=== PATIENT | male | born 1935 | race Caucasian/White ===

== ENCOUNTER → 2018-01-26 | Outpatient (CLI) | payer MEDICARE ==
--- NOTE | 2018-01-26 11:36 | FL ---
EXAMINATION TYPE: FL barium swallow w video DATE OF EXAM: 01/26/2018 MODIFIED SWALLOW / DEGLUTITION STUDY CLINICAL HISTORY: Burning sensation at the back of the patient's throat. TECHNIQUE: Deglutition study is performed utilizing thin liquid barium, honey and nectar thick liqui d barium, barium thick applesauce, and barium coated cracker. 57 seconds of fluoroscopy was utilized. 0 images were saved as the exam was video recorded. COMPARISON: None. FINDINGS: The oral and pharyngeal phases show satisfactory initiation and propagation with all modali ties tested. Normal mastication is seen with solid modalities tested. There is no evidence of penet ration or aspiration with any modality tested. No significant pharyngeal residue was appreciated. IMPRESSION: Unremarkable deglutition study. Please refer to speech therapist notes for further detai ls if necessary.
== END | disposition home or self-care (01) ==
LOC: RADFLMAIN 10:42
PROVIDERS: ATTEND Otolaryngology
DX: R13.10 Dysphagia, unspecified (principal)
CPT/HCPCS: 74230

== ENCOUNTER → 2018-01-30 | Outpatient (CLI) | payer MEDICARE ==
--- NOTE | 2018-01-30 10:29 | FL ---
EXAMINATION TYPE: FL barium swallow DATE OF EXAM: 01/30/2018 COMPARISON: None HISTORY: Dysphasia TECHNIQUE: A double air contrast esophagram study is performed. FINDINGS: Esophagus dilates to normal caliber has normal contour to the gastroesophageal junction. Ga stroesophageal junction opens to normal caliber. A small self reducing sliding type hiatal hernia is present. No intraluminal or extramural defect is evident. Tertiary contractions were evident. In the horizontal drinking position there is incomplete stripping of esophageal bolus. Fluoroscopy time: 1 minute 8 seconds. Images: 13 IMPRESSIONS: 1. Presbyesophagus. 2. Small soft reducing sliding type hiatal hernia.
== END | disposition home or self-care (01) ==
LOC: RADFLWHC 09:15
PROVIDERS: ATTEND Otolaryngology
DX: K44.9 Diaphragmatic hernia without obstruction or gangrene (principal); K22.8 Other specified diseases of esophagus
CPT/HCPCS: 74220

== ENCOUNTER 2018-04-18 10:28 | Day surgery (SDC) | payer MEDICARE ==
[2018-04-14 10:23] VITALS: BMI 26.3
[~2018-04-18 10:28] MED LIST: LACTATED RINGERS 1,000 ML IV SCH
[2018-04-18 10:45] VITALS: RESP 18; TEMP 98
[2018-04-18] MEDS ORDERED: LIDOCAINE 1% 20 ML VIAL (10MG/ML) FOR IV START INTRADERMA ONE (10:55)
[2018-04-18] MEDS ORDERED: LACTATED RINGERS 1,000 ML IV ONE (10:55)
[2018-04-18] MEDS ORDERED: LIDOCAINE 1% INJ 10MG/ML (20 ML MDV) ONE (11:59)
[2018-04-18] MEDS ORDERED: PROPOFOL 10 MG/ML 20 ML VIAL IV ONE (11:59)
--- NOTE | 2018-04-18 12:25 | P.PCN ---
Date of Procedure: 04/18/18 Procedure(s) Performed: Procedure: Esophagogastroduodenoscopy and biopsy. Preoperative diagnosis: Throat complaints and suspected reflux disease. Postoperative diagnosis: 1. Small sliding hiatal hernia with no obvious esophagitis or complicated reflux disease. 2. Mild antral gastritis. 3. Multiple biopsies obtained from the duodenum, antrum and esophagus. Preparation: HalfLytely prep. Sedation: Was provided by anesthesia. Brief clinical history: The patient is an 82-year-old male who has been experiencing exertional throat burning for the last several months with improvement at rest. There is no history of heartburn. Did not respond to a trial with PPI. He is undergoing cardiac evaluation and this evaluation is requested to rule out with confidence gastroesophageal reflux disease. Procedure: With the patient on his left lateral decubitus position and after informed consent and adequate sedation, I passed a Olympus-GIF H190 video upper endoscope through the cricopharyngeus down the esophagus. GE junction was around 40 cm from the incisors and there was a small sliding hiatal hernia but no obvious esophagitis or complicated reflux disease. The endoscope was then passed into the stomach which was insufflated with air and inspected in detail including the retroflex view in the cardia. There was some mottling and erythema in the antrum but no ulcers or erosions. Pyloric channel, duodenal bulb, post bulbar area and descending duodenum appeared within normal limits. I obtained multiple biopsies from the duodenum, antrum and esophagus then the endoscope was withdrawn. The patient tolerated the procedure well. Plan: The patient was reassured. Will await biopsy results. In the meantime, I encouraged him to proceed with the cardiac workup as you have suggested. I would like to see him in follow-up if his symptoms persist and his cardiac workup is negative. At that time, I would consider 24-hour pH/impedance study if he continues to be symptomatic and his biopsies taken today did not support acid reflux. I will keep you updated on his progress.
[2018-04-18 12:44] VITALS: BP 152/89; PULSE 64
== END 2018-04-18 12:53 | disposition home or self-care (01) ==
LOC: ORWHC2ENDO 10:28
DX: K44.9 Diaphragmatic hernia without obstruction or gangrene (principal); K29.50 Unspecified chronic gastritis without bleeding; K21.9 Gastro-esophageal reflux disease without esophagitis; Z88.0 Allergy status to penicillin; Z79.82 Long term (current) use of aspirin
CPT/HCPCS: 88305; 43239; J2001; J2704

== ENCOUNTER 2018-05-08 10:50 | Inpatient (IN) | payer MEDICARE ==
[2018-05-08] MEDS ORDERED: ASPIRIN 325 MG TAB ONE (11:22)
[2018-05-08] MEDS ORDERED: SODIUM CHLORIDE 0.9% 1,000 ML IV ONE (11:40)
[2018-05-08] MEDS ORDERED: ASPIRIN 325 MG TAB PO STA (11:46)
[2018-05-08] MEDS ORDERED: SODIUM CHLORIDE 0.9% 1,000 ML in EMPTY BAG 1 BAG IV ONE (11:46)
[2018-05-08] MEDS ORDERED: ATORVASTATIN 80 MG TAB PO STA (11:46)
[2018-05-08] MEDS ORDERED: NITROGLYCERIN SL TABS 0.4 MG TAB SUBLINGUAL PRN ×2 (11:46→12:59)
[2018-05-08] MEDS ORDERED: ALPRAZolam 0.5 MG TAB PO PRN (11:46)
[2018-05-08] MEDS ORDERED: ALPRAZolam 0.25 MG TAB PO PRN (11:46)
[2018-05-08 11:54] LABS: Basophils % (A) 1 %; Eosinophils # (A) 0.1 k/uL (0-0.7); Eosinophils % (A) 2 %; HCT 46.7 % (39.0-53.0); Lymphocytes # (A) 1.4 k/uL (1.0-4.8); Lymphocytes % (A) 19 %; MCH 31.2 pg (25.0-35.0); MCHC 32.2 g/dL (31.0-37.0); MCV 97.1 fL (80.0-100.0); Mean Platelet Volume 6.6; Monocytes # (A) 0.6 k/uL (0-1.0); Monocytes % (A) 8 %; Neutrophils # (A) 5.2 k/uL (1.3-7.7); Neutrophils % (A) 69 %; Platelet Count 244 k/uL (150-450); RDW 13.1 % (11.5-15.5); WBC 7.5 k/uL (3.8-10.6)
[2018-05-08] MEDS ORDERED: LIDOCAINE 1% INJ 10MG/ML (20 ML MDV) ONE (11:54)
[2018-05-08] MEDS ORDERED: fentaNYL (PF) 50 MCG/ML 2 ML AMP ONE (11:54)
[2018-05-08] MEDS ORDERED: VERAPAMIL 2.5 MG/ML 2 ML AMP ONE (11:54)
[2018-05-08 12:01] LABS: Anion Gap 8 mmol/L; Blood Urea Nitrogen 19 mg/dL (9-20); Calcium 9.4 mg/dL (8.4-10.2); Carbon Dioxide 24 mmol/L (22-30); Chloride 106 mmol/L (98-107); Glucose 100 mg/dL (74-99); Potassium 4.2 mmol/L (3.5-5.1); Sodium 138 mmol/L (137-145)
[2018-05-08] MEDS ORDERED: MIDAZOLAM 2 MG/2 ML VIAL IVP ONE (12:15)
[2018-05-08] MEDS ORDERED: fentaNYL (PF) 50 MCG/ML 2 ML AMP IVP ONE (12:15)
[2018-05-08] MEDS ORDERED: LIDOCAINE 1% INJ 10MG/ML (20 ML MDV) SQ ONE (12:19)
[2018-05-08] MEDS ORDERED: VERAPAMIL SYRINGE (5 MG/10 ML) INTRAARTER ONE (12:22)
[2018-05-08] MEDS ORDERED: HEPARIN SODIUM 1,000 UN/ML (10ML VL) ONE (12:22)
[2018-05-08] MEDS ORDERED: HEPARIN SODIUM 1,000 UN/ML (10ML VL) IV ONE (12:23)
[2018-05-08] MEDS ORDERED: IOPAMIDOL-370 150ML BTL INJ ONE (12:42)
[2018-05-08] MEDS ORDERED: RX INFO: IV CONTRAST WAS GIVEN 1 EACH MISC MISCELLANE PRN (12:56)
--- NOTE | 2018-05-08 13:12 | P.CARDCATH ---
Date of Procedure: 05/08/18 Preoperative Diagnosis: Exertional angina and strongly positive stress test Postoperative Diagnosis: Severe multivessel disease with mild to moderately impaired LV function Procedure(s) Performed: Left heart catheterization with left ventriculography Description of Procedure: This is a 82-year-old gentleman with history of of throat and neck pain for which he had several evaluations. He was seen by Dr. VC Marcelino and was started on combination of metoprolol and Imdur. Patient had a stress test today and walked about 5 minutes and developed significant ST-T changes associated, throat pain. His nuclear study showed severe reversible ischemia involving the anteroapical wall with the left ventricular cavity dilatation. Because of strongly positive stress test on ongoing chest pain, patient is advised to have a cardiac catheterization. Patient and family were explained the risks and benefits of the procedure. CONSENT:I have discussed the risks, benefits and alternative therapies for the above-mentioned procedure and for both sedation/analgesia as well as necessary blood product administration, if indicated, as they pertain to this patient. The patient has indicated understanding and acceptance of the risks and procedures discussed. PROCEDURE: Patient was brought to the lab in a fasting state. Patient was given some IV sedation. The right wrist is infiltrated with lidocaine and right radial artery was entered using Seldinger technique. A 6-Bahamian catheter was left in place and selective coronary arteriography and left ventriculography was performed. Patient tolerated the procedure well. Femoral angiogram was performed and Angio-Seal was applied for hemostasis. No immediate complications were noted and patient was transferred to [facility] in a stable condition. The patient was also given 4000 of IV heparin. He was also given IV verapamil Conscious Sedation: Versed 1mg Fentanyl 50 g Duration 29minutes HEMODYNAMICS: The aortic pressure was about 130/70. Left ankle end-diastolic pressure was 16. There was no gradient across the aortic valve SELECTIVE CORONARY ARTERIOGRAPHY: LEFT MAIN: Normal length and patent THE LEFT ANTERIOR DESCENDING CORONARY ARTERY:. This is a good caliber vessel with a diffuse disease. There is heavy calcification of the whole left coronary system and also right coronary system. There is about 99% stenosis of the LAD after the first septal branch. There is a diffuse disease involving the LAD after the second diagonal branch. The distal LAD appears to be small to moderate caliber and free of any significant lesions. There is also ostial lesion involving the second diagonal with about 70-80% lesion. THE LEFT CIRCUMFLEX AND IS CORONARY ARTERY: This is a good caliber vessel giving rise to good-sized OM branch. The first OM branch has about 50-60% lesion. The circumflex gives rise to to PDA branch. There are multiple lesions in the distal circumflex including the origin of the PDA with about 90% stenosis. THE RIGHT CORONARY ARTERY: Diffusely this is a vessel with total occlusion in midportion. There are collaterals from the left coronary system filling the distal RCA which appears to be diffusely this is a vessel LEFT VENTRICULOGRAPHY:. This revealed hypokinesis of the mid and also apical anterior wall. Overall left ankle function is moderately impaired with ejection fraction of 40% FINAL IMPRESSION:, Severe triple-vessel disease with multiple lesions in the LAD, circumflex and total occlusion of the RCA as described above PLAN: Aortic, bypass surgery with graft to the LAD diagonal distal circumflex and probably OM branch. I'm not sure if the distal RCA is bypassable PROGNOSIS: Guarded
[2018-05-08] MEDS ORDERED: ISOSORBIDE MONONITRATE ER 30 MG TAB.ER.24H PO STA (13:51)
[2018-05-08] MEDS ORDERED: MD COMMUNICATION TO PHARMACY 1 EACH MISC PO ONE (14:26)
[2018-05-08] MEDS: METOPROLOL TARTRATE 25 MG TAB PO SCH ×2 (14:46→21:34)
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
[2018-05-08 15:52] LABS: Magnesium 2.1 mg/dL (1.6-2.3)
[2018-05-08 15:53] LABS: Partial Thromboplastin Time 29.7 sec (22.0-30.0); Prothrombin Time 10.7 sec (9.0-12.0)
[2018-05-08 16:09] LABS: Appearance,Urine Clear (Clear); Bilirubin,Urine Negative (Negative); Blood,Urine Negative (Negative); Color,Urine Light Yellow; Glucose,Urine (UA) Negative (Negative); Ketones,Urine Negative (Negative); Leukocyte Esterase,Urine Negative (Negative); Nitrite,Urine Negative (Negative); Protein,Urine Negative (Negative); Urobilinogen,Urine <2.0 mg/dL (<2.0)
[2018-05-08] MEDS: SODIUM CHLORIDE 0.9% 1,000 ML IV SCH (17:51)
--- NOTE | 2018-05-08 18:04 | US ---
EXAMINATION TYPE: US carotid duplex BILAT DATE OF EXAM: 05/08/2018 COMPARISON: NONE CLINICAL HISTORY: Pre-Op Cardiac Surgery. EXAM MEASUREMENTS: RIGHT: Peak Systolic Velocity (PSV) cm/sec ----- Right CCA: 68.2 ----- Right ICA: 134.9 ----- Right ECA: 43.2 ICA/CCA ratio: 2.0 RIGHT: End Diastole cm/sec ----- Right CCA: 17.3 ----- Right ICA: 21.5 ----- Right ECA: 4.4 LEFT: Peak Systolic Velocity (PSV) cm/sec ----- Left CCA: 51.7 ----- Left ICA: 152.3 ----- Left ECA: 47.8 ICA/CCA ratio: 2.9 LEFT: End Diastole cm/sec ----- Left CCA: 10.0 ----- Left ICA: 32.7 ----- Left ECA: 5.1 VERTEBRALS (direction of flow): Right Vertebral: Antegrade Left Vertebral: Antegrade Rhythm: Normal Moderate to severe atherosclerotic plaque with mild velocity increases seen bilateral. IMPRESSION: There is antegrade flow in the vertebral arteries. Bilateral plaque formation is present. The images and measurements suggest 50-70% stenosis in both internal carotid arteries. Criteria for Assigning % of Stenosis / Diameter reduction (Estimation based on the indirect measurements of the internal carotid artery velocities (ICA PSV). 1. Normal (no stenosis)=ICA PSV < 125 cm/s: ratio < 2.0: ICA EDV<40 cm/s. 2. Less than 50% stenosis=ICA PSV < 125 cm/s: ratio < 2.0: ICA EDV<40 cm/s. 3. 50 to 69% stenosis=ICA PSV of 125 to 230 cm/s: ration 2.0 ? 4.0: ICA EDV 40-100 cm/s. 4. Greater than 70% stenosis to near occlusion= ICA PSV > 230 cm/s: ratio > 4.0: ICA EDV > 100 cm/s. 5. Near occlusion= ICA PSV velocities may be low or undetectable: variable ratio and ICA EDV. 6. Total occlusion=unable to detect flow.
--- NOTE | 2018-05-08 18:16 | XR ---
EXAMINATION TYPE: XR chest 2V DATE OF EXAM: 05/08/2018 COMPARISON: NONE HISTORY: Preop cardiac surgery TECHNIQUE: Frontal and lateral views of the chest are obtained. FINDINGS: There is no heart failure nor confluent pneumonic infiltrate. Costophrenic angles are todd r. Thoracic aorta is atheromatous. IMPRESSION: No active cardiopulmonary disease. Atheromatous aorta.
[2018-05-08] MEDS: MUPIROCIN 2% OINT 22 GM TUBE NASAL SCH (19:42)
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
[2018-05-09 00:25] LABS: Hemoglobin A1C 5.3 % (4.0-6.0)
[2018-05-09 02:59] LABS: Hepatitis A Antibody IgM Non-Reactive (Non-Reactive); Hepatitis B Core IgM Non-Reactive (Non-Reactive)
[2018-05-09] MEDS: SODIUM CHLORIDE 0.9% 1,000 ML IV SCH ×2 (03:59→19:30)
[2018-05-09 07:07] LABS: Anion Gap 9 mmol/L; Blood Urea Nitrogen 16 mg/dL (9-20); Calcium 8.9 mg/dL (8.4-10.2); Carbon Dioxide 22 mmol/L (22-30); Chloride 108 mmol/L (98-107); Glucose 99 mg/dL (74-99); Sodium 139 mmol/L (137-145)
[2018-05-09 07:09] LABS: Potassium 4.5 mmol/L (3.5-5.1)
[2018-05-09] MEDS: ATORVASTATIN 40 MG TAB PO SCH (08:56)
[2018-05-09] MEDS: ISOSORBIDE MONONITRATE ER 30 MG TAB.ER.24H PO SCH (08:57)
[2018-05-09] MEDS: MUPIROCIN 2% OINT 22 GM TUBE NASAL SCH ×2 (08:57→19:26)
[2018-05-09] MEDS: METOPROLOL TARTRATE 25 MG TAB PO SCH ×2 (08:57→19:31)
[2018-05-09] MEDS: ASPIRIN 325 MG TAB PO SCH (08:57)
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
--- NOTE | 2018-05-09 12:46 | ECHOF ---
Referral Reason:assess LV, valves preop CABG MEASUREMENTS -------- HEIGHT: 175.3 cm WEIGHT: 83.0 kg BP: 182/79 IVSd: 1.2 cm (0.6 - 1.1) LVIDd: 5.1 cm (3.9 - 5.3) LVPWd: 1.2 cm (0.6 - 1.1) IVSs: 1.5 cm LVIDs: 3.1 cm LVPWs: 1.5 cm LA Diam: 4.1 cm (2.7 - 3.8) LAESV Index (A-L): 26.75 ml/m Ao Diam: 3.6 cm (2.0 - 3.7) AV Cusp: 1.7 cm (1.5 - 2.6) LA Diam: 3.2 cm (2.7 - 3.8) MV EXCURSION: 22.907 mm (> 18.000) MV EF SLOPE: 87 mm/s (70 - 150) EPSS: 0.5 cm MV E Son: 0.64 m/s MV DecT: 207 ms MV A Son: 1.23 m/s MV E/A Ratio: 0.52 RAP: 5.00 mmHg RVSP: 26.68 mmHg FINDINGS -------- Sinus rhythm. This was a technically good study. The left ventricular size is normal. There is mild concentric left ventricular hypertrophy. Overa ll left ventricular systolic function is moderate-severely impaired with, an EF between 30 - 35 %. The diastolic filling pattern is normal for the age of the patient 15.31. Mid anteroseptal LV wall motion is hypokinetic. Apical anterior LV wall motion is hypokinetic. Apical lateral LV wall mo tion is hypokinetic. Apical inferior LV wall motion is hypokinetic. Apical septum LV wall motio n is hypokinetic. Inferior Hypokinesis Distal Septal Hypokinesis. The right ventricle is normal in size. The left atrial size is normal. Normal LA size by volume 22+/-6 ml/m2. The right atrial size is normal. The aortic valve is trileaflet, and appears structurally normal. No aortic stenosis or regurgitation. Mild mitral annular calcification present. Mild mitral regurgitation is present. Mild tricuspid regurgitation present. There is mild pulmonary hypertension. The right ventricular systolic pressure, as measured by Doppler, is 26.68mmHg. Trace/mild (physiologic) pulmonic regurgitation. The aortic root size is normal. There is a small, generalized pericardial effusion present. CONCLUSIONS -------- 1. The left ventricular size is normal. 2. There is mild concentric left ventricular hypertrophy. 3. The diastolic filling pattern is normal for the age of the patient 15.31 4. Mid anteroseptal LV wall motion is hypokinetic. 5. Apical anterior LV wall motion is hypokinetic. 6. Apical lateral LV wall motion is hypokinetic. 7. Apical inferior LV wall motion is hypokinetic. 8. Apical septum LV wall motion is hypokinetic. 9. Inferior Hypokinesis 10. Distal Septal Hypokinesis. 11. The right ventricle is normal in size. 12. The left atrial size is normal. 13. The right atrial size is normal. 14. The aortic valve is trileaflet, and appears structurally normal. No aortic stenosis or regurgitat ion. 15. Mild mitral annular calcification present. 16. Mild mitral regurgitation is present. 17. Mild tricuspid regurgitation present. 18. There is mild pulmonary hypertension. 19. The right ventricular systolic pressure, as measured by Doppler, is 26.68mmHg. 20. Trace/mild (physiologic) pulmonic regurgitation. 21. The aortic root size is normal. 22. There is a small, generalized pericardial effusion present. ASSOCIATE PROFESSOR OF BIOLOGY: Amy Loredo RDCS
--- NOTE | 2018-05-09 13:16 | PN ---
PROGRESS NOTE Mr. Odonnell underwent a cardiac cath performed by Dr. Goodman yesterday. He has significant triple-vessel disease, mild to moderate LV function impairment. He is doing well. His right radial cath site is clean and dry. Vitals are stable. S1-S2 heard normally. Lungs are clear. Abdomen and lower extremity unchanged. We are adding losartan to his regimen. I am recommending that he increase activity. He will be seen by Dr. Springer today and surgery is planned for this gentleman. From a cardiac standpoint, he can proceed with the operation. He will be on some GI prophylaxis and subcu heparin as well. His carotid Doppler suggests a moderate 50%-70% stenosis in both internal carotid arteries with antegrade flow, but even vertebral arteries bilaterally. I do not think any carotid intervention is necessary at this time. He can proceed with cardiac surgery after evaluation by Dr. Springer, which hopefully will happen today. He is also being evaluated from a pulmonary standpoint by Dr. Murray. I will add losartan 25 mg p.o. daily to his regimen. Discussed my thoughts in detail with the patient and family. MMODL / IJN: [id number] /
[2018-05-09] MEDS: PANTOPRAZOLE 40 MG TABLET PO SCH (16:02)
[2018-05-09] MEDS: HEPARIN SODIUM,PORCINE 5,000 UNIT/ML 1 ML VIAL SQ SCH ×2 (16:02→23:26)
[2018-05-09] MEDS: LOSARTAN 25 MG TAB PO SCH (16:03)
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
[2018-05-09] MEDS ORDERED: MD COMMUNICATION TO PHARMACY 1 EACH MISC PO ONE ×2 (20:06)
--- NOTE | 2018-05-09 21:00 | CT ---
EXAMINATION TYPE: CT chest wo con DATE OF EXAM: 05/09/2018 COMPARISON: 05/08/2018 radiographs HISTORY: Positive stress test CT DLP: 343.2 mGycm. Automated Exposure Control for Dose Reduction was Utilized. TECHNIQUE: CT scan of the thorax is performed without IV contrast. FINDINGS: LUNGS AND AIRWAYS: The lungs are grossly clear, there is no concerning bronchogenic mass. There are a few scattered subcentimeter pulmonary nodules measuring from 2 - 9 mm; would advise 6 month follow-u p chest CT to further characterize these. The tracheobronchial tree is patent. PLEURAL SPACES: Negative. MEDIASTINUM: Mild cardiomegaly, with prominent left and right coronary calcifications. In addition, a ir to mitral valve plane calcifications noted. No pericardial effusion. Ascending aorta caliber enlar ged at 4.2 cm. No mediastinal or hilar adenopathy. OTHER: No additional significant abnormality is seen. IMPRESSION: 1. MILD CARDIOMEGALY WITH PROMINENT CORONARY CALCIFICATIONS. 2. MILD FUSIFORM DILATION OF THE ASCENDING AORTA, MEASURING 4.2 CM CALIBER. 3. PULMONARY NODULES, FOLLOW UP CT IN SIX MONTHS.
[2018-05-10] MEDS: PANTOPRAZOLE 40 MG TABLET PO SCH (06:46)
[2018-05-10] MEDS: SODIUM CHLORIDE 0.9% 1,000 ML IV SCH ×2 (06:47→19:34)
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
[2018-05-10] MEDS: METOPROLOL TARTRATE 25 MG TAB PO SCH ×2 (10:12→19:34)
[2018-05-10] MEDS: ATORVASTATIN 40 MG TAB PO SCH (10:12)
[2018-05-10] MEDS: LOSARTAN 25 MG TAB PO SCH (10:12)
[2018-05-10] MEDS: HEPARIN SODIUM,PORCINE 5,000 UNIT/ML 1 ML VIAL SQ SCH ×3 (10:12→23:18)
[2018-05-10] MEDS: ISOSORBIDE MONONITRATE ER 30 MG TAB.ER.24H PO SCH (10:13)
[2018-05-10] MEDS: MUPIROCIN 2% OINT 22 GM TUBE NASAL SCH ×2 (10:13→19:35)
[2018-05-10] MEDS: ASPIRIN 325 MG TAB PO SCH (15:21)
--- NOTE | 2018-05-10 15:21 | PN ---
PROGRESS NOTE Mr. Odonnell is a gentleman who underwent cardiac cath by Dr. Goodman. He is going to have surgery this Tuesday with a triple-vessel bypass. He is comfortable, resting, denies chest pain. His right radial cath site is clean and dry. Vitals are stable, S1-S2 heard normally. Lungs are clear. Abdomen and lower extremity exam unchanged. Plan is to continue current medications, increase activity and he will have surgery in about 48 hours or so. MMODL / IJN: [id number] /
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
[2018-05-11] MEDS: PANTOPRAZOLE 40 MG TABLET PO SCH (06:38)
[2018-05-11] MEDS: SODIUM CHLORIDE 0.9% 1,000 ML IV SCH ×2 (06:39→20:31)
[2018-05-11 06:55] LABS: HCT 41.4 % (39.0-53.0); HGB 13.1 gm/dL (13.0-17.5); MCH 30.6 pg (25.0-35.0); MCHC 31.7 g/dL (31.0-37.0); MCV 96.6 fL (80.0-100.0); Mean Platelet Volume 7.2; Platelet Count 202 k/uL (150-450); RBC 4.29 m/uL (4.30-5.90); WBC 5.4 k/uL (3.8-10.6)
[2018-05-11 06:59] LABS: Prothrombin Time 10.5 sec (9.0-12.0)
[2018-05-11 07:04] LABS: ALT 25 U/L (21-72); AST 18 U/L (17-59); Albumin 3.3 g/dL (3.5-5.0); Alkaline Phosphatase 58 U/L (38-126); Anion Gap 8 mmol/L; Blood Urea Nitrogen 13 mg/dL (9-20); Calcium 8.9 mg/dL (8.4-10.2); Carbon Dioxide 23 mmol/L (22-30); Chloride 109 mmol/L (98-107); Glucose 92 mg/dL (74-99); Potassium 4.1 mmol/L (3.5-5.1); Sodium 140 mmol/L (137-145); Total Bilirubin 0.8 mg/dL (0.2-1.3); Total Protein 5.8 g/dL (6.3-8.2)
[2018-05-11] MEDS: ISOSORBIDE MONONITRATE ER 30 MG TAB.ER.24H PO SCH (08:37)
[2018-05-11] MEDS: ATORVASTATIN 40 MG TAB PO SCH (08:37)
[2018-05-11] MEDS: LOSARTAN 25 MG TAB PO SCH (08:37)
[2018-05-11] MEDS: ASPIRIN 325 MG TAB PO SCH (08:37)
[2018-05-11] MEDS: METOPROLOL TARTRATE 25 MG TAB PO SCH ×2 (08:37→20:31)
[2018-05-11] MEDS: HEPARIN SODIUM,PORCINE 5,000 UNIT/ML 1 ML VIAL SQ SCH ×3 (08:38→23:42)
[2018-05-11] MEDS: MUPIROCIN 2% OINT 22 GM TUBE NASAL SCH ×2 (08:38→20:31)
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
--- NOTE | 2018-05-11 12:02 | PN ---
PROGRESS NOTE This is an 83-year-old gentleman who underwent a cardiac cath a few days ago, was found to have significant triple-vessel disease. He is going to go for aortocoronary bypass surgery tomorrow to be performed by Dr. Springer. This morning he is doing well, resting comfortably. Denies any chest pain or shortness of breath. Vital signs are stable. S1, S2 heard normally. Lungs are clear. Abdomen and lower extremities exam is unchanged. Plan is to continue his current medications and he will have surgery tomorrow and we will continue to follow him. MMODL / IJN: [id number] /
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
[2018-05-12] MEDS: PANTOPRAZOLE 40 MG TABLET PO SCH (05:31)
[2018-05-12] MEDS ORDERED: NITROGLYCERIN-D5W PMX 25 MG/250 ML BTL IV ONE (06:00)
[2018-05-12] MEDS ORDERED: INSULIN REGULAR 100 UNIT in SODIUM CHLORIDE 0.9% 100 ML IV ONE (06:00)
[2018-05-12] MEDS ORDERED: TRANEXAMIC ACID 2,000 MG in SODIUM CHLORIDE 0.9% 80 ML IV ONE (06:00)
[2018-05-12] MEDS ORDERED: NITROGLYCERIN-D5W PMX 50 MG in DEXTROSE/WATER 1 250ML.BAG IV ONE (06:00)
[2018-05-12] MEDS ORDERED: ALBUMIN HUMAN 25% 50 ML in EMPTY BAG 1 BAG IVPB ONE (06:00)
[2018-05-12] MEDS ORDERED: ATORVASTATIN 10 MG TAB PO ONE (06:00)
[2018-05-12] MEDS ORDERED: DEXTROSE 5% IN WATER 1,000 ML with POTASSIUM CHLORIDE 25 MEQ, SODIUM CHLORIDE 2.5MEQ/ML... IV SCH ×6 (06:00)
[2018-05-12] MEDS ORDERED: PROTAMINE SULFATE 250 MG in EMPTY BAG 1 BAG IV ONE (06:00)
[2018-05-12] MEDS ORDERED: ASPIRIN 325 MG TAB PO ONE (06:00)
[2018-05-12] MEDS ORDERED: MAGNESIUM SULFATE SYG 4.06 MEQ/ML SYRINGE IV ONE (06:00)
[2018-05-12] MEDS ORDERED: PAPAVERINE 360 MG in SODIUM CHLORIDE 0.9% 90 ML IV ONE (06:00)
[2018-05-12] MEDS ORDERED: MANNITOL 25% 12.5 GM/50 ML VIAL IV ONE ×2 (06:00)
[2018-05-12] MEDS ORDERED: ALBUMIN HUMAN 5% 500 ML in EMPTY BAG 1 BAG IVPB ONE ×6 (06:00)
[2018-05-12] MEDS ORDERED: DEXTROSE 5% IN WATER 1,000 ML with POTASSIUM CHLORIDE 110 MEQ, MAGNESIUM SULFATE 16 MEQ... IV SCH ×5 (06:00)
[2018-05-12] MEDS ORDERED: CALCIUM CHLORIDE 100 MG/ML 10 ML SYRINGE IVP ONE (06:00)
[2018-05-12] MEDS ORDERED: CHLORHEXIDINE GLUCONATE 15 ML CUP MUCOUS MEM ONE (06:00)
[2018-05-12] MEDS ORDERED: PROTAMINE SULFATE 10 MG/ML 25 ML VIAL IV ONE ×2 (06:00→07:38)
[2018-05-12] MEDS ORDERED: PHENYLEPHRINE 10 MG/ML VIAL IV ONE (06:00)
[2018-05-12] MEDS ORDERED: SODIUM BICARB 8.4% 50 ML SYR (1 MEQ/ML) IV ONE (06:00)
[2018-05-12] MEDS ORDERED: PROPOFOL 1,000 MG in EMPTY BAG 1 BAG IV ONE (06:00)
[2018-05-12] MEDS ORDERED: HEPARIN SODIUM,PORCINE 5,000 UNIT in SODIUM CHLORIDE 0.9% 500 ML 500 ML IV ONE (06:00)
[2018-05-12] MEDS ORDERED: ceFAZolin 2,000 MG in SODIUM CHLORIDE 0.9% 30 ML IVPB ONE (06:00)
[2018-05-12] MEDS ORDERED: PHENYLEPHRINE 40 MG in SODIUM CHLORIDE 0.9% 250 ML IV ONE (06:00)
[2018-05-12] MEDS ORDERED: ceFAZolin 1,000 MG in SODIUM CHLORIDE 0.9% IRRIGATIO 1,000 ML IRRIGATION ONE (06:00)
[2018-05-12] MEDS ORDERED: ceFAZolin 2 GM in SODIUM CHLORIDE 0.9% 30 ML IVPB ONE (06:00)
[2018-05-12] MEDS ORDERED: NOREPINEPHRINE 4 MG in SODIUM CHLORIDE 0.9% 250 ML IV SCH (06:00)
[2018-05-12] MEDS ORDERED: HEPARIN SODIUM 1,000 UN/ML (10ML VL) IV ONE (06:00)
[2018-05-12] MEDS ORDERED: METOPROLOL TARTRATE 12.5 MG TAB PO ONE (06:00)
[2018-05-12] MEDS ORDERED: IV FLUID CONTINUATION 1,000 ML IV ONE (06:03)
[2018-05-12] MEDS ORDERED: LACTATED RINGERS 1,000 ML IV ONE (06:26)
[2018-05-12] MEDS ORDERED: ELECTROLYTE-R (PH 7.4) 1,000 ML IV.SOLN IV ONE (07:38)
[2018-05-12] MEDS ORDERED: HEPARIN SODIUM,PORCINE 10,000 UNIT/ML 1 ML VIAL ONE (07:38)
[2018-05-12] MEDS ORDERED: fentaNYL (PF) 50 MCG/ML 2 ML AMP ONE (07:38)
[2018-05-12] MEDS ORDERED: VECURONIUM 10 MG VIAL IV ONE (07:38)
[2018-05-12] MEDS ORDERED: PHENYLEPHRINE-0.9% NACL SYG 1 MG/10 ML SYRINGE ONE (07:38)
[2018-05-12] MEDS ORDERED: SODIUM CHLORIDE 0.9% IRRIG 1,000 ML BTL IRRIGATION ONE (07:38)
[2018-05-12] MEDS ORDERED: SODIUM CHLORIDE 0.9% 250 ML BAG ONE (07:38)
[2018-05-12] MEDS ORDERED: ePHEDrine SULFATE/0.9% NACL/PF 50 MG/5 ML SYRINGE IV ONE (07:38)
[2018-05-12] MEDS ORDERED: MIDAZOLAM 2 MG/2 ML VIAL ONE (07:38)
[2018-05-12] MEDS ORDERED: PROPOFOL 10 MG/ML 20 ML VIAL IV ONE (07:38)
[2018-05-12] MEDS ORDERED: fentaNYL (PF) 50 MCG/ML 50 ML VIAL ONE (07:38)
[2018-05-12] MEDS ORDERED: TRANEXAMIC ACID 1,000 MG/10 ML VIAL ONE (07:38)
[2018-05-12] MEDS ORDERED: MAGNESIUM SULFATE 4 MEQ/ML 10ML VIAL ONE (07:38)
[2018-05-12 08:27] LABS: ABG Base Excess 0.1 mmol/L; ABG HCO3 24 mmol/L (21-25); ABG PCO2 37 mmHg (35-45); ABG PH 7.43 (7.35-7.45); ABG PO2 358 mmHg (83-108); ABG Potassium Whole Blood 3.6 mmol/L (3.4-4.5); ABG Sodium Whole Blood 140 mmol/L (135-146); ABG TCO2 25 mmol/L (19-24)
[2018-05-12 09:47] LABS: ABG Base Excess -2.8 mmol/L; ABG HCO3 25 mmol/L (21-25); ABG Oxygen Saturation 99.4 % (94-97); ABG PCO2 54 mmHg (35-45); ABG PH 7.27 (7.35-7.45); ABG PO2 161 mmHg (83-108); ABG Potassium Whole Blood 3.7 mmol/L (3.4-4.5); ABG Sodium Whole Blood 140 mmol/L (135-146); ABG TCO2 26 mmol/L (19-24)
[2018-05-12 10:51] LABS: ABG HCO3 23 mmol/L (21-25); ABG PCO2 42 mmHg (35-45); ABG PH 7.36 (7.35-7.45); ABG PO2 347 mmHg (83-108); ABG Potassium Whole Blood 4.7 mmol/L (3.4-4.5); ABG Sodium Whole Blood 134 mmol/L (135-146); ABG TCO2 25 mmol/L (19-24)
[2018-05-12 11:22] LABS: ABG Base Excess -1.7 mmol/L; ABG HCO3 24 mmol/L (21-25); ABG PCO2 42 mmHg (35-45); ABG PH 7.36 (7.35-7.45); ABG PO2 330 mmHg (83-108); ABG Potassium Whole Blood 4.4 mmol/L (3.4-4.5); ABG Sodium Whole Blood 135 mmol/L (135-146); ABG TCO2 25 mmol/L (19-24)
[2018-05-12 12:03] LABS: ABG Base Excess -1.6 mmol/L; ABG HCO3 24 mmol/L (21-25); ABG PCO2 43 mmHg (35-45); ABG PH 7.35 (7.35-7.45); ABG PO2 232 mmHg (83-108); ABG Potassium Whole Blood 4.9 mmol/L (3.4-4.5); ABG Sodium Whole Blood 135 mmol/L (135-146); ABG TCO2 25 mmol/L (19-24)
[2018-05-12 13:32] LABS: ABG Base Excess -1.4 mmol/L; ABG HCO3 24 mmol/L (21-25); ABG Oxygen Saturation 97.2 % (94-97); ABG PCO2 42 mmHg (35-45); ABG PH 7.37 (7.35-7.45); ABG PO2 84 mmHg (83-108); ABG Potassium Whole Blood 3.9 mmol/L (3.4-4.5); ABG Sodium Whole Blood 138 mmol/L (135-146); ABG TCO2 25 mmol/L (19-24)
[2018-05-12] MEDS: CLEVIDIPINE BUTYRATE 25 MG in EMPTY BAG 1 BAG IV ONE ×2 (13:37→15:05)
[2018-05-12] MEDS: SODIUM CHLORIDE 0.9% 1,000 ML IV SCH (13:38)
[2018-05-12] MEDS: HEPARIN SODIUM,PORCINE 5,000 UNIT/ML 1 ML VIAL SQ SCH ×3 (13:41→21:43)
[2018-05-12] MEDS: ASPIRIN 325 MG TAB PO SCH (13:42)
[2018-05-12] MEDS: LOSARTAN 25 MG TAB PO SCH (13:42)
[2018-05-12] MEDS: ATORVASTATIN 40 MG TAB PO SCH (13:42)
[2018-05-12] MEDS: ISOSORBIDE MONONITRATE ER 30 MG TAB.ER.24H PO SCH (13:42)
[2018-05-12] MEDS: METOPROLOL TARTRATE 25 MG TAB PO SCH (13:43)
[2018-05-12] MEDS: MUPIROCIN 2% OINT 22 GM TUBE NASAL SCH ×2 (13:43→20:24)
[2018-05-12] MEDS ORDERED: Potassium Replacement Protocol 1 EACH MISC MISCELLANE PRN (13:49)
[2018-05-12] MEDS ORDERED: CALCIUM CHLORIDE 1,000 MG in SODIUM CHLORIDE 0.9% 100 ML IV PRN (13:49)
[2018-05-12] MEDS ORDERED: AMIODARONE 300 MG in DEXTROSE 5% IN WATER 250 ML IV PRN ×2 (13:49)
[2018-05-12] MEDS ORDERED: INSULIN REGULAR 100 UNIT in SODIUM CHLORIDE 0.9% 100 ML IV SCH (13:49)
[2018-05-12] MEDS ORDERED: PROPOFOL 1,000 MG in EMPTY BAG 1 BAG IV SCH (13:49)
[2018-05-12] MEDS ORDERED: METOCLOPRAMIDE 5 MG/ML 2 ML VIAL IVP PRN (13:49)
[2018-05-12] MEDS ORDERED: ONDANSETRON 4 MG/2 ML VIAL IVP PRN (13:49)
[2018-05-12] MEDS ORDERED: DEXTROSE 5% IN WATER 100 ML with AMIODARONE 150 MG IV PRN (13:49)
[2018-05-12] MEDS ORDERED: Phosphorus Replacement Protoco 1 EACH MISC MISCELLANE PRN (13:49)
[2018-05-12] MEDS ORDERED: IPRATROPIUM-ALBUTEROL 3 ML NEB INHALATION PRN (13:49)
[2018-05-12] MEDS ORDERED: AMIODARONE 360 MG in DEXTROSE 5% IN WATER 200 ML IV PRN ×2 (13:49)
[2018-05-12] MEDS ORDERED: Magnesium Replacement Protocol 1 EACH MISC MISCELLANE PRN (13:49)
[2018-05-12] MEDS ORDERED: NITROGLYCERIN-D5W PMX 50 MG in DEXTROSE/WATER 1 250ML.BAG IV SCH (13:49)
[2018-05-12] MEDS: LACTATED RINGERS 1,000 ML IV SCH (14:31)
[2018-05-12 14:42] LABS: Basophils % (A) 0 %; Eosinophils # (A) 0.1 k/uL (0-0.7); Eosinophils % (A) 1 %; HCT 32.5 % (39.0-53.0); HGB 10.3 gm/dL (13.0-17.5); Lymphocytes # (A) 0.7 k/uL (1.0-4.8); Lymphocytes % (A) 8 %; MCH 30.8 pg (25.0-35.0); MCHC 31.7 g/dL (31.0-37.0); MCV 97.1 fL (80.0-100.0); Mean Platelet Volume 8.1; Monocytes # (A) 0.5 k/uL (0-1.0); Monocytes % (A) 6 %; Neutrophils # (A) 7.1 k/uL (1.3-7.7); Neutrophils % (A) 85 %; Platelet Count 119 k/uL (150-450); RBC 3.35 m/uL (4.30-5.90); RDW 13.3 % (11.5-15.5); WBC 8.4 k/uL (3.8-10.6)
[2018-05-12 14:48] LABS: Glucose,Whole Blood 76 mg/dL (75-99); Ionized Calcium 5.6 mg/dL (4.5-5.3)
[2018-05-12 14:52] LABS: INR 1.2 (<1.2); Partial Thromboplastin Time 28.3 sec (22.0-30.0); Prothrombin Time 12.1 sec (9.0-12.0)
[2018-05-12 14:54] LABS: ALT 148 U/L (21-72); AST 260 U/L (17-59); Albumin 2.9 g/dL (3.5-5.0); Alkaline Phosphatase 44 U/L (38-126); Anion Gap 5 mmol/L; Blood Urea Nitrogen 11 mg/dL (9-20); Carbon Dioxide 24 mmol/L (22-30); Chloride 109 mmol/L (98-107); Glucose 74 mg/dL (74-99); Magnesium 2.7 mg/dL (1.6-2.3); Potassium 4.1 mmol/L (3.5-5.1); Sodium 138 mmol/L (137-145); Total Bilirubin 1.2 mg/dL (0.2-1.3); Total Protein 4.8 g/dL (6.3-8.2)
[2018-05-12 14:56] LABS: ABG Base Excess -1.1 mmol/L; ABG HCO3 24 mmol/L (21-25); ABG PCO2 42 mmHg (35-45); ABG PH 7.37 (7.35-7.45); ABG PO2 378 mmHg (83-108); ABG TCO2 26 mmol/L (19-24)
[2018-05-12] MEDS: CLEVIDIPINE BUTYRATE 25 MG in EMPTY BAG 1 BAG IV SCH ×2 (15:00→22:23)
[2018-05-12] MEDS ORDERED: hydrALAZINE HCL 20 MG/ML 1 ML VIAL IVP PRN (15:10)
[2018-05-12 15:12] LABS: Glucose,Whole Blood 78 mg/dL (75-99)
[2018-05-12] MEDS ORDERED: fentaNYL (PF) 50 MCG/ML 2 ML AMP IVP ONE (15:15)
--- NOTE | 2018-05-12 15:26 | XR ---
EXAMINATION TYPE: XR chest 1V portable DATE OF EXAM: 05/12/2018 CLINICAL HISTORY: Post open cardiac surgery. TECHNIQUE: Single AP portable frontal supine view of the chest is obtained. COMPARISON: Chest x-ray from 4 days ago. FINDINGS: There is new endotracheal tube with tip at superior aortic knob level, approximately 5 cm above jeanette. There is new orogastric tube projecting below diaphragm. There is new right internal ju gular Megargel-Sara catheter with tip at level of pulmonary outflow tract. There is new left-sided chest tube and mediastinal drainage catheter. There is patchy bibasilar linear atelectasis with additional left midlung lateral linear atelectasis. No pneumothorax is evident bilaterally. Suspect small left pleural fluid collection. Cardiac silhoue tte size is stable and within normal limits without reflect thoracic aorta. Osseous structures are in tact. IMPRESSION: 1. New tubes and lines satisfactory in position. 2. Patchy bibasilar and left midlung lateral linear atelectasis with small left pleural effusion.
[2018-05-12] MEDS: ceFAZolin IN SWFI 2 GM/20 ML SYRINGE IVP SCH ×2 (15:30→23:49)
[2018-05-12] MEDS: ACETAMINOPHEN IV (For NPO) 1,000 MG in EMPTY BAG 1 BAG IVPB SCH ×2 (15:54→23:48)
[2018-05-12] MEDS ORDERED: IPRATROPIUM-ALBUTEROL 3 ML NEB INHALATION SCH (16:00)
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
[2018-05-12 16:18] LABS: Glucose,Whole Blood 113 mg/dL (75-99)
[2018-05-12] MEDS: KETOROLAC 30 MG/ML 1 ML VIAL IVP SCH ×2 (16:34→23:49)
[2018-05-12 17:20] LABS: Basophils % (A) 0 %; Eosinophils % (A) 0 %; HCT 35.8 % (39.0-53.0); HGB 11.8 gm/dL (13.0-17.5); Lymphocytes # (A) 0.6 k/uL (1.0-4.8); Lymphocytes % (A) 5 %; MCH 31.8 pg (25.0-35.0); MCHC 32.8 g/dL (31.0-37.0); MCV 96.8 fL (80.0-100.0); Mean Platelet Volume 7.5; Monocytes # (A) 0.9 k/uL (0-1.0); Monocytes % (A) 7 %; Neutrophils # (A) 10.5 k/uL (1.3-7.7); Neutrophils % (A) 87 %; Platelet Count 154 k/uL (150-450); RDW 13.5 % (11.5-15.5); WBC 12.2 k/uL (3.8-10.6)
[2018-05-12 17:30] LABS: Glucose,Whole Blood 132 mg/dL (75-99)
[2018-05-12 17:41] LABS: ABG Base Excess -2.7 mmol/L; ABG HCO3 22 mmol/L (21-25); ABG Oxygen Saturation 97.9 % (94-97); ABG PCO2 37 mmHg (35-45); ABG PH 7.39 (7.35-7.45); ABG PO2 91 mmHg (83-108); ABG TCO2 23 mmol/L (19-24)
[2018-05-12 18:12] LABS: Glucose,Whole Blood 136 mg/dL (75-99)
--- NOTE | 2018-05-12 18:56 | OP ---
OPERATIVE REPORT DATE OF SURGERY: 05/12/2018 PREOPERATIVE DIAGNOSIS: Coronary artery disease. POSTOPERATIVE DIAGNOSIS: Coronary artery disease. PROCEDURES: 1. Coronary artery bypass grafting x4 vessels (left internal mammary artery to left anterior descending artery, saphenous vein graft to diagonal artery, saphenous vein graft to obtuse marginal artery 1, saphenous vein graft to obtuse marginal artery 2). 2. Endoscopic vein harvest, right greater saphenous vein. 3. Epiaortic ultrasound. 4. Transesophageal echocardiogram. SURGEON: Neto Springer M.D. ASSISTANTS: 1. ROLANDO Rayo. 2. ROLANDO Sandhu. ANESTHESIA: General. SPECIMENS: None. COMPLICATIONS: None. INDICATION: The patient is an 83-year-old male who presented to the hospital with throat/neck pain. He denied chest pain or shortness of breath. Workup revealed multivessel coronary artery disease, including a 99% stenosis in the left anterior descending artery. Coronary artery bypass was recommended. The risks, benefits and alternatives to this procedure were discussed with the patient. All his questions were answered. Consent was obtained. FINDINGS: The left internal mammary artery was a good conduit with brisk flow. The saphenous vein was a good conduit. The LAD measured 1.3 mm. The diagonal artery measured 1.3 mm. The OM1 measured 1.3 mm. The OM2 measured 1.3 mm. The distal right coronary artery and PDA were too diseased and too small for bypass. Of note, there was a significant amount of calcium in all of the coronary arteries. PROCEDURE IN DETAIL: The patient was taken to the operating room and placed supine on the operating table. After the induction of general anesthesia, he was prepped and draped in the usual sterile fashion. Preoperative transesophageal echocardiogram revealed an ejection fraction of about 40% with no significant valvular pathology. A median sternotomy was performed. The left internal mammary artery was harvested in the standard fashion, taking care to clip all branches. Intravenous heparin was administered. The vessel was transected distally, revealing brisk flow. Simultaneously, greater saphenous vein was harvested from the right lower extremity using endoscopic technique. All branches were tied. Both the mammary artery and saphenous vein were good conduits. A pericardial cradle was created. The ascending aorta was palpated. There was no significant calcium noted. Epiaortic ultrasound was then performed on the ascending aorta. Again, no significant calcific plaque or atheromatous disease was identified. An arterial cannula was placed in the distal ascending aorta. A venous cannula was placed through the right atrial appendage and directed into the IVC. Both antegrade and retrograde catheters were placed as well. The patient was then placed on cardiopulmonary bypass with good decompression of the heart. The aortic cross- clamp was applied. Cardioplegia was delivered in both antegrade and retrograde fashion to achieve arrest of the heart. Of note, cardioplegia was delivered every 15 to 20 minutes while the patient remained under cross-clamp. I began by inspecting the inferior wall. The distal right coronary artery was heavily calcified. The PDA was miniscule in size. I did not feel this was a suitable target for bypass. Next, the lateral wall was inspected. Both the OM1 and OM2 were good targets. I began with the OM2. A small arteriotomy was created. This vessel accepted a 1 mm probe. Using saphenous vein in a reverse fashion, an end-to-side anastomosis was created. This was performed using running 7-0 Prolene suture. The graft was hemostatic and had great flow. The OM1 was then identified. A small arteriotomy was created. This vessel accepted a 1.0 mm probe. Using saphenous vein in a reverse fashion, an end-to-side anastomosis was created. This was performed using a running 7- 0 Prolene suture. The graft was hemostatic and had great flow. Of note, the circumflex and proximal obtuse marginal arteries had significant calcific disease. The diagonal artery was then identified. It contained diffuse calcific disease. A small arteriotomy was created. This vessel accepted a 1 mm probe. Using saphenous vein in a reverse fashion, an end-to-side anastomosis was created. This was performed using running 7-0 Prolene suture. The graft was hemostatic and had good flow. Finally the left anterior descending artery was identified. It contained diffuse calcific plaque throughout its course. A soft spot for bypass was noted in its mid portion. A small arteriotomy was created. This vessel accepted a 1 mm probe. Using the left internal mammary artery, an end-to-side anastomosis was created. This was performed using a running 8-0 Prolene suture. The anastomosis was hemostatic. The mammary pedicle was then tacked down to the anterior surface of the heart. Attention was then turned to the proximal anastomoses. These were performed in end-to- side fashion using running 6-0 Prolene sutures. Of note, the vein graft to the OM2 was brought around the right side of the heart and was anastomosed to the right side of the aorta. One liter of warm blood was delivered in retrograde fashion. Both lidocaine and magnesium were administered as well. The aortic cross-clamp was removed. The vein grafts were de-aired in the standard fashion. Distal anastomoses were inspected and appeared to be hemostatic. The retrograde catheter was removed. Temporary atrial and ventricular pacing wires were placed and brought through the skin. The patient was then carefully weaned off cardiopulmonary bypass. He without difficulty and without the addition of any pressor agents. Follow-up transesophageal echocardiogram confirmed no change in the left ventricular ejection fraction. There was no valvular pathology. Protamine was administered. There were no adverse reactions. The remaining cannulas were then removed. The mediastinum was copiously irrigated with warm saline solution. All surgical sites were inspected and appeared to be hemostatic. Reinforcement sutures were placed as needed. Soft tissue was then reapproximated over the ascending aorta as well as over the apex of the heart. Straight 32-German chest tubes were placed and directed into both the left pleural space and the mediastinum. These were all secured to the skin using sutures. The sternum was then reapproximated using stainless steel wires in a [id number] fashion. At the completion of the closure, the sternum was well aligned. The remainder of the wound was closed in layers. A sterile dressing was applied. The patient appeared to tolerate the procedure well. There were no immediate complications. He returned to the ICU in critical but stable condition. DAILY / MASOUDN: [id number] / Sander#: [id number] BRIAN
[2018-05-12 19:05] LABS: Glucose,Whole Blood 128 mg/dL (75-99)
[2018-05-12] MEDS: IPRATROPIUM-ALBUTEROL 3 ML NEB INHALATION SCH ×2 (19:46→19:48)
[2018-05-12 20:03] LABS: Glucose,Whole Blood 125 mg/dL (75-99)
[2018-05-12] MEDS: METOPROLOL TARTRATE 12.5 MG TAB PO SCH (20:04)
[2018-05-12 20:14] LABS: Basophils % (A) 0 %; Eosinophils % (A) 0 %; HCT 36.4 % (39.0-53.0); HGB 11.8 gm/dL (13.0-17.5); Lymphocytes # (A) 0.5 k/uL (1.0-4.8); Lymphocytes % (A) 4 %; MCH 31.3 pg (25.0-35.0); MCHC 32.3 g/dL (31.0-37.0); MCV 96.6 fL (80.0-100.0); Mean Platelet Volume 7.4; Monocytes # (A) 0.8 k/uL (0-1.0); Monocytes % (A) 6 %; Neutrophils # (A) 11.7 k/uL (1.3-7.7); Neutrophils % (A) 89 %; Platelet Count 165 k/uL (150-450); RBC 3.76 m/uL (4.30-5.90); RDW 13.4 % (11.5-15.5); WBC 13.2 k/uL (3.8-10.6)
[2018-05-12 21:13] LABS: Glucose,Whole Blood 128 mg/dL (75-99)
[2018-05-12 22:11] LABS: Glucose,Whole Blood 125 mg/dL (75-99)
[2018-05-12 23:24] LABS: Glucose,Whole Blood 127 mg/dL (75-99)
[2018-05-13 00:14] LABS: Glucose,Whole Blood 119 mg/dL (75-99)
[2018-05-13 01:10] LABS: Glucose,Whole Blood 129 mg/dL (75-99)
[2018-05-13 02:18] LABS: Glucose,Whole Blood 125 mg/dL (75-99)
[2018-05-13 03:20] LABS: Glucose,Whole Blood 123 mg/dL (75-99)
[2018-05-13 04:16] LABS: Glucose,Whole Blood 120 mg/dL (75-99)
[2018-05-13 04:19] LABS: Basophils % (A) 0 %; Eosinophils % (A) 0 %; HCT 32.9 % (39.0-53.0); HGB 10.6 gm/dL (13.0-17.5); Lymphocytes % (A) 10 %; MCH 30.7 pg (25.0-35.0); MCHC 32.3 g/dL (31.0-37.0); MCV 95.2 fL (80.0-100.0); Mean Platelet Volume 7.6; Monocytes # (A) 0.7 k/uL (0-1.0); Monocytes % (A) 7 %; Neutrophils # (A) 8.1 k/uL (1.3-7.7); Neutrophils % (A) 81 %; Platelet Count 155 k/uL (150-450); RBC 3.46 m/uL (4.30-5.90); RDW 13.4 % (11.5-15.5)
[2018-05-13 04:25] LABS: Ionized Calcium 4.8 mg/dL (4.5-5.3)
[2018-05-13 04:32] LABS: ALT 124 U/L (21-72); AST 117 U/L (17-59); Alkaline Phosphatase 57 U/L (38-126); Anion Gap 6 mmol/L; Blood Urea Nitrogen 10 mg/dL (9-20); Calcium 8.4 mg/dL (8.4-10.2); Carbon Dioxide 23 mmol/L (22-30); Chloride 105 mmol/L (98-107); Glucose 108 mg/dL (74-99); Magnesium 1.9 mg/dL (1.6-2.3); Potassium 4.2 mmol/L (3.5-5.1); Sodium 134 mmol/L (137-145); Total Bilirubin 1.1 mg/dL (0.2-1.3); Total Protein 4.9 g/dL (6.3-8.2)
[2018-05-13 05:16] LABS: Glucose,Whole Blood 119 mg/dL (75-99)
[2018-05-13] MEDS: KETOROLAC 30 MG/ML 1 ML VIAL IVP SCH ×4 (05:44→23:07)
[2018-05-13] MEDS: ALBUMIN HUMAN 5% 250 ML in EMPTY BAG 1 BAG IVPB PRN ×5 (05:45→14:15)
[2018-05-13] MEDS ORDERED: HYDROcodone/APAP 5-325MG 1 EACH TAB PO PRN (06:00)
[2018-05-13 06:09] LABS: Glucose,Whole Blood 122 mg/dL (75-99)
[2018-05-13] MEDS ORDERED: Magnesium Replacement Protocol 1 EACH MISC MISCELLANE PRN (06:16)
[2018-05-13] MEDS: MAGNESIUM SULFATE-D5W PMX 1 GM in DEXTROSE/WATER 1 100ML.BAG IVPB SCH ×2 (06:26→08:13)
--- NOTE | 2018-05-13 06:37 | XR ---
EXAMINATION TYPE: XR chest 1V portable DATE OF EXAM: 05/13/2018 HISTORY: Post Operative Cardiac Surgery. REFERENCE: Previous study dated 05/12/2018. FINDINGS: The patient has been extubated. The patient is NG tube is been removed. A left pleural drai n remains in place. A Ottertail-Sara catheter is in place via a right internal jugular approach. Its tip i s in the pulmonary outflow tract. There has been a midline sternotomy. There is mild atelectasis of the left lung base. There is also some platelike atelectasis in the righ t midlung. There is a small left effusion and a smaller right effusion. The heart is not enlarged. IMPRESSION: CONTINUING POSTOPERATIVE CHANGE.
[2018-05-13 07:08] LABS: Glucose,Whole Blood 130 mg/dL (75-99)
[2018-05-13] MEDS: IPRATROPIUM-ALBUTEROL 3 ML NEB INHALATION SCH ×4 (07:16→19:11)
[2018-05-13] MEDS: METOPROLOL TARTRATE 12.5 MG TAB PO SCH ×2 (08:24→20:42)
[2018-05-13] MEDS: PANTOPRAZOLE 40 MG TABLET PO SCH (08:24)
[2018-05-13] MEDS: CLOPIDOGREL 75 MG TAB PO SCH (08:24)
[2018-05-13] MEDS: ATORVASTATIN 40 MG TAB PO SCH (08:24)
[2018-05-13] MEDS: ASPIRIN 325 MG TAB PO SCH (08:24)
[2018-05-13] MEDS: HEPARIN SODIUM,PORCINE 5,000 UNIT/ML 1 ML VIAL SQ SCH ×3 (08:25→23:07)
[2018-05-13 08:31] LABS: Glucose,Whole Blood 142 mg/dL (75-99)
[2018-05-13] MEDS: MUPIROCIN 2% OINT 22 GM TUBE NASAL SCH ×2 (08:41→20:42)
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
[2018-05-13] MEDS ORDERED: METOPROLOL TARTRATE 12.5 MG TAB PO SCH (09:00)
[2018-05-13] MEDS ORDERED: PANTOPRAZOLE 40 MG/10 ML VIAL IVP SCH (09:00)
[2018-05-13] MEDS: ceFAZolin IN SWFI 2 GM/20 ML SYRINGE IVP SCH (09:24)
[2018-05-13] MEDS: HYDROcodone/APAP 5-325MG 1 EACH TAB PO PRN ×2 (09:27→16:31)
[2018-05-13 09:37] VITALS: BMI 26.7
[2018-05-13 09:43] LABS: Glucose,Whole Blood 142 mg/dL (75-99)
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
[2018-05-13 11:26] LABS: Glucose,Whole Blood 124 mg/dL (75-99)
[2018-05-13 12:11] LABS: Glucose,Whole Blood 130 mg/dL (75-99)
[2018-05-13] MEDS: INSULIN ASPART (NovoLOG) 100 UNIT/ML VIAL SQ SCH ×3 (13:28→20:41)
[2018-05-13] MEDS ORDERED: BISACODYL 10 MG SUPP RECTAL PRN (13:39)
[2018-05-13] MEDS ORDERED: MAGNESIUM HYDROXIDE 2,400 MG/10 ML CUP PO PRN (13:39)
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
[2018-05-13] MEDS: LACTATED RINGERS 1,000 ML IV SCH (15:35)
--- NOTE | 2018-05-13 16:36 | PN ---
PROGRESS NOTE This is an 83-year-old gentleman who underwent aortocoronary bypass surgery yesterday with BOLANOS to LAD, saphenous vein graft to the diagonal and obtuse marginal 1 and obtuse marginal 2. He is doing well, resting comfortably, extubated, doing fairly well on incentive spirometry. Maintaining sinus rhythm. Hemodynamically stable, not on any pressors. Vitals are stable. S1, S2 heard normally. Lungs reveal fair air entry. Abdomen and lower extremity exam is unchanged. Plan is to continue incentive spirometry, pulmonary toilet and continue current medications. Based on clinical course, we will make further recommendations. MMODL / IJN: [id number] /
[2018-05-13 17:13] LABS: Glucose,Whole Blood 141 mg/dL (75-99)
[2018-05-13] MEDS: SENNOSIDES-DOCUSATE SODIUM 1 EACH TAB PO SCH (20:41)
[2018-05-13 20:47] LABS: Glucose,Whole Blood 179 mg/dL (75-99)
[2018-05-14 04:47] LABS: Ionized Calcium 4.9 mg/dL (4.5-5.3)
[2018-05-14 04:59] LABS: ALT 58 U/L (21-72); AST 41 U/L (17-59); Alkaline Phosphatase 51 U/L (38-126); Anion Gap 7 mmol/L; Blood Urea Nitrogen 13 mg/dL (9-20); Calcium 8.5 mg/dL (8.4-10.2); Carbon Dioxide 23 mmol/L (22-30); Chloride 108 mmol/L (98-107); Glucose 113 mg/dL (74-99); Magnesium 2.1 mg/dL (1.6-2.3); Sodium 138 mmol/L (137-145); Total Bilirubin 1.2 mg/dL (0.2-1.3); Total Protein 4.9 g/dL (6.3-8.2)
[2018-05-14 05:03] LABS: Basophils % (A) 0 %; Eosinophils # (A) 0.1 k/uL (0-0.7); Eosinophils % (A) 2 %; HCT 25.6 % (39.0-53.0); Lymphocytes # (A) 0.9 k/uL (1.0-4.8); Lymphocytes % (A) 15 %; MCH 32.1 pg (25.0-35.0); MCHC 32.9 g/dL (31.0-37.0); MCV 97.7 fL (80.0-100.0); Mean Platelet Volume 7.3; Monocytes # (A) 0.4 k/uL (0-1.0); Monocytes % (A) 7 %; Neutrophils % (A) 73 %; Platelet Count 108 k/uL (150-450); RBC 2.62 m/uL (4.30-5.90); RDW 13.7 % (11.5-15.5); WBC 5.5 k/uL (3.8-10.6)
[2018-05-14 05:13] LABS: HGB 8.4 gm/dL (13.0-17.5)
[2018-05-14] MEDS: KETOROLAC 30 MG/ML 1 ML VIAL IVP SCH ×3 (06:12→20:25)
[2018-05-14] MEDS: INSULIN ASPART (NovoLOG) 100 UNIT/ML VIAL SQ SCH ×4 (06:58→21:39)
[2018-05-14 07:07] LABS: Glucose,Whole Blood 130 mg/dL (75-99)
--- NOTE | 2018-05-14 07:27 | XR ---
EXAMINATION TYPE: XR chest 1V portable DATE OF EXAM: 05/14/2018 Comparison: 05/13/2018 Clinical History: 83-year-old male postop cardiac surgery Post Operative Cardiac Surgery Findings: Right IJ sheath remains in place. [place]-Sara catheter has been removed. Median sternotomy wires and po stsurgical clips in the mediastinum. Left-sided chest tube remains in place. There is a possible trac e left apical pneumothorax estimated at 5%. Some Josselyn B lines are present on the left. Trace effusi ons with patchy left greater than right bibasilar opacities are demonstrated. Impression: 1. Left-sided chest tube in place. There may be a trace left apical pneumothorax now present. 2. Possible mild pulmonary vascular congestion. 3. Trace pleural effusions with left greater than right bibasilar atelectasis and/or consolidation si milar to slightly increased.
[2018-05-14] MEDS: HEPARIN SODIUM,PORCINE 5,000 UNIT/ML 1 ML VIAL SQ SCH ×2 (08:36→16:59)
[2018-05-14] MEDS: CLOPIDOGREL 75 MG TAB PO SCH (08:36)
[2018-05-14] MEDS: ATORVASTATIN 40 MG TAB PO SCH (08:36)
[2018-05-14] MEDS: ASPIRIN 325 MG TAB PO SCH (08:36)
[2018-05-14] MEDS: PANTOPRAZOLE 40 MG TABLET PO SCH (08:36)
[2018-05-14] MEDS: METOPROLOL TARTRATE 25 MG TAB PO SCH ×2 (08:37→20:26)
[2018-05-14] MEDS: LACTATED RINGERS 1,000 ML IV SCH (08:38)
[2018-05-14] MEDS: MUPIROCIN 2% OINT 22 GM TUBE NASAL SCH ×2 (08:38→20:26)
--- NOTE | 2018-05-14 08:43 | PN ---
PROGRESS NOTE This is a gentleman with history of hypertension, hyperlipidemia, CAD, who underwent aortocoronary bypass surgery. He is doing remarkably well. Good recovery. This morning he complains of feeling some lump in the throat as if he could not swallow his oatmeal, but has no other symptoms. He is doing well on incentive spirometry. Remains in sinus rhythm. Vital signs are stable. S1-S2 heard normally. Lungs reveal fair air entry. Abdomen and lower exam unchanged. I will add losartan 25 mg at bedtime to the regimen. Continue the beta blockers and statins already ordered. He can be moved out of the ICU whenever it is okay with the surgeon. MMODL / IJN: [id number] /
[2018-05-14] MEDS: IPRATROPIUM-ALBUTEROL 3 ML NEB INHALATION SCH ×4 (08:46→19:20)
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
[2018-05-14] MEDS: HYDROcodone/APAP 5-325MG 1 EACH TAB PO PRN ×2 (10:37→16:58)
[2018-05-14 12:03] LABS: Glucose,Whole Blood 127 mg/dL (75-99)
[2018-05-14 17:03] LABS: Glucose,Whole Blood 122 mg/dL (75-99)
[2018-05-14] MEDS: LOSARTAN 25 MG TAB PO SCH (20:26)
[2018-05-14] MEDS: SENNOSIDES-DOCUSATE SODIUM 1 EACH TAB PO SCH (20:26)
[2018-05-14 20:52] LABS: Glucose,Whole Blood 138 mg/dL (75-99)
[2018-05-15] MEDS: KETOROLAC 30 MG/ML 1 ML VIAL IVP SCH ×5 (00:25→23:10)
[2018-05-15] MEDS: HEPARIN SODIUM,PORCINE 5,000 UNIT/ML 1 ML VIAL SQ SCH ×4 (00:26→23:10)
[2018-05-15 05:14] LABS: HCT 28.1 % (39.0-53.0); HGB 8.9 gm/dL (13.0-17.5); MCH 31.3 pg (25.0-35.0); MCHC 31.7 g/dL (31.0-37.0); MCV 98.6 fL (80.0-100.0); Mean Platelet Volume 7.8; Platelet Count 132 k/uL (150-450); RBC 2.85 m/uL (4.30-5.90); RDW 13.6 % (11.5-15.5); WBC 6.2 k/uL (3.8-10.6)
[2018-05-15 05:21] LABS: ALT 45 U/L (21-72); AST 29 U/L (17-59); Alkaline Phosphatase 62 U/L (38-126); Anion Gap 6 mmol/L; Blood Urea Nitrogen 14 mg/dL (9-20); Calcium 8.5 mg/dL (8.4-10.2); Carbon Dioxide 24 mmol/L (22-30); Chloride 106 mmol/L (98-107); Glucose 98 mg/dL (74-99); Potassium 3.9 mmol/L (3.5-5.1); Sodium 136 mmol/L (137-145)
[2018-05-15] MEDS: IPRATROPIUM-ALBUTEROL 3 ML NEB INHALATION SCH ×4 (05:34→19:29)
[2018-05-15 07:07] LABS: Glucose,Whole Blood 114 mg/dL (75-99)
[2018-05-15] MEDS: INSULIN ASPART (NovoLOG) 100 UNIT/ML VIAL SQ SCH ×4 (07:10→21:32)
[2018-05-15] MEDS ORDERED: POTASSIUM CHLORIDE ER 20 MEQ TAB.ER PO SCH (08:00)
[2018-05-15] MEDS ORDERED: FUROSEMIDE 10 MG/ML 2 ML VIAL IV ONE (08:12)
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
--- NOTE | 2018-05-15 08:34 | XR ---
EXAMINATION TYPE: XR chest 2V DATE OF EXAM: 05/15/2018 COMPARISON: 05/14/2018 TECHNIQUE: PA and lateral views submitted. HISTORY: Postop CABG FINDINGS: There is a persistent approximately 10% left apical pneumothorax. Chest tube noted with bilateral con solidation and small effusion. Postsurgical changes are seen. Atherosclerotic change aorta. Underlyin g COPD suspected. Vascular sheath has been removed. IMPRESSION: 1. Postsurgical changes with bilateral infiltrate and small effusion stable. 2. Stable approximate 10% left-sided apical pneumothorax.
[2018-05-15] MEDS: CLOPIDOGREL 75 MG TAB PO SCH (09:27)
[2018-05-15] MEDS: PANTOPRAZOLE 40 MG TABLET PO SCH (09:27)
[2018-05-15] MEDS: ATORVASTATIN 40 MG TAB PO SCH (09:28)
[2018-05-15] MEDS: METOPROLOL TARTRATE 25 MG TAB PO SCH ×3 (09:28→21:33)
[2018-05-15] MEDS: ASPIRIN 325 MG TAB PO SCH (09:28)
[2018-05-15] MEDS: MUPIROCIN 2% OINT 22 GM TUBE NASAL SCH ×2 (09:31→21:34)
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
[2018-05-15 11:48] LABS: Glucose,Whole Blood 112 mg/dL (75-99)
--- NOTE | 2018-05-15 13:11 | P.PN ---
Subjective Progress Note Date: 05/15/18 Principal diagnosis: Status post CABG, postoperative day #3. Patient was reevaluated today on 05/15/2018, his postoperative day #3, underwent four-vessel bypass myocardial revascularization surgery. He was extubated uneventfully, he is hemodynamically stable, his [place]Sara has been removed, continues to have a left sided chest tube, tiny left apical pneumothorax is noted, small air leak is noted. Overall the patient is doing great, and asymptomatic, doing well with incentive spirometry. Denies any specific complaints. Chest x-ray was reviewed, labs were reviewed, hemoglobin is 8.9. Renal profile is normal left lites are normal. Objective - Vital Signs Vital signs: Vital Signs Temp 99.1 F 05/15/18 08:00 Pulse 80 05/15/18 12:09 Resp 20 05/15/18 08:00 BP 112/66 05/15/18 08:00 Pulse Ox 94 L 05/15/18 08:00 Intake & Output 05/14/18 05/15/18 05/15/18 18:59 06:59 18:59 Intake Total 236 283 200 Output Total 840 1050 1300 Balance -604 -767 -1100 Weight 80.2 kg Intake: IV 236 83 Lactated Ringers 1,000 ml 200 80 @ 20 mls/hr IV .Q24H [facility] Rx#:[id number] Pressure Bag 36 3 Oral 200 200 Output: Chest Tube Drainage 240 250 300 Left 130 250 300 Mediastinal 110 Urine 290 466 4473 Other: Voiding Method Toilet Toilet Toilet Urinal Urinal Urinal # Voids 1 ABP, PAP, CO, CI - Last Documented Arterial Blood Pressure 144/43 Pulmonary Artery Pressure 28/12 Cardiac Output 6.4 Cardiac Index 3.3 - Exam Physical Exam: Revealed an 83-year-old white male in no distress. Very pleasant. Head: Atraumatic, normocephalic. HEENT:[Neck is supple.] [No neck masses.] [No thyromegaly.] [No JVD.] Chest: [Diminished breath sounds at the bases no crackles or rhonchi or wheezes, left-sided chest tube is noted. Intact Cardiac Exam: [Normal S1 and S2, no S3 gallop, no murmur.] Abdomen: [Soft, nontender, no megaly, no rebound, no guarding, normal bowel sounds.] Extremities: [No clubbing, no edema, no cyanosis.] Neurological Exam: [No focal neurologic deficit.] Alert oriented 3. Psychiatric: Normal mood, affect and mental status examination. Skin: No rashes. Musculoskeletal: Normal gait, strength equal bilaterally. No focal deficit. - Labs CBC & Chem 7: 05/15/18 04:54 05/15/18 04:54 Labs: Abnormal Lab Results - Last 24 Hours (Table) 05/14/18 05/14/18 05/15/18 Range/Units 16:51 20:40 04:54 RBC 2.85 L (4.30-5.90) m/uL Hgb 8.9 L (13.0-17.5) gm/dL Hct 28.1 L (39.0-53.0) % Plt Count 132 L (150-450) k/uL Sodium (137-145) mmol/L POC Glucose (mg/dL) 122 H 138 H (75-99) mg/dL Total Protein (6.3-8.2) g/dL Albumin (3.5-5.0) g/dL 05/15/18 05/15/18 05/15/18 Range/Units 04:54 06:55 11:37 RBC (4.30-5.90) m/uL Hgb (13.0-17.5) gm/dL Hct (39.0-53.0) % Plt Count (150-450) k/uL Sodium 136 L (137-145) mmol/L POC Glucose (mg/dL) 114 H 112 H (75-99) mg/dL Total Protein 5.0 L (6.3-8.2) g/dL Albumin 3.0 L (3.5-5.0) g/dL Assessment and Plan Assessment: Impression: 1 severe triple-vessel coronary artery disease, status post CABG, postoperative day #3. 2 left tiny apical pneumothorax, improving, continues to have a chest tube in place. 3 lifelong nonsmoker 4 bilateral carotid artery disease 5 chronic congestive heart failure and systolic dysfunction and ejection fraction of 30-35% 6 history of gastric ulcer. 7 strong family history of premature coronary artery disease. Recommendation: Continue incentive spirometry, continue bronchodilators, ambulate the patient, continue to monitor his left sided chest tube and apical pneumothorax, continue cardiac meds including aspirin and statin Plavix Cozaar and beta blockers. Continue physical therapy and outpatient cardiac rehab to follow. Continue pain control medications continue to monitor daily labs including electrolytes and renal profile continue GI prophylaxis and DVT prophylaxis continue to follow until discharge. Time with Patient: Less than 30
[2018-05-15 17:25] LABS: Glucose,Whole Blood 157 mg/dL (75-99)
[2018-05-15 20:17] LABS: Glucose,Whole Blood 168 mg/dL (75-99)
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
--- NOTE | 2018-05-15 21:11 | PN ---
PROGRESS NOTE Mr. Odonnell is status post bypass surgery. He is doing remarkably well, maintaining sinus rhythm, hemodynamically stable, doing well on incentive spirometry. Vitals are stable. S1, S2 heard normally. Lungs reveal improved air entry. Abdomen and lower extremity exam unchanged. Plan is to continue incentive spirometry, pulmonary toilet, and hopefully the chest tubes will come out and he may be moved to telemetry today. MMODL / IJN: [id number] /
[2018-05-15] MEDS: LOSARTAN 25 MG TAB PO SCH (21:33)
[2018-05-15] MEDS: SENNOSIDES-DOCUSATE SODIUM 1 EACH TAB PO SCH (21:33)
[2018-05-16 05:20] LABS: HGB 9.3 gm/dL (13.0-17.5); MCH 32.6 pg (25.0-35.0); MCHC 33.2 g/dL (31.0-37.0); MCV 98.4 fL (80.0-100.0); Mean Platelet Volume 8.4; Platelet Count 191 k/uL (150-450); RBC 2.84 m/uL (4.30-5.90); RDW 13.7 % (11.5-15.5); WBC 5.9 k/uL (3.8-10.6)
[2018-05-16 05:34] LABS: Anion Gap 8 mmol/L; Blood Urea Nitrogen 15 mg/dL (9-20); Calcium 8.4 mg/dL (8.4-10.2); Carbon Dioxide 24 mmol/L (22-30); Chloride 105 mmol/L (98-107); Glucose 96 mg/dL (74-99); Potassium 3.6 mmol/L (3.5-5.1); Sodium 137 mmol/L (137-145)
[2018-05-16] MEDS: PANTOPRAZOLE 40 MG TABLET PO SCH (05:50)
[2018-05-16] MEDS: KETOROLAC 30 MG/ML 1 ML VIAL IVP SCH ×4 (05:50→22:59)
[2018-05-16] MEDS ORDERED: POTASSIUM CHLORIDE ER 20 MEQ TAB.ER PO SCH ×2 (06:00→07:00)
[2018-05-16] MEDS: MAGNESIUM SULFATE-D5W PMX 1 GM in DEXTROSE/WATER 1 100ML.BAG IVPB SCH ×2 (06:49→08:35)
[2018-05-16] MEDS: INSULIN ASPART (NovoLOG) 100 UNIT/ML VIAL SQ SCH ×5 (06:49→21:41)
[2018-05-16] MEDS ORDERED: FUROSEMIDE 10 MG/ML 2 ML VIAL IV ONE (06:57)
[2018-05-16 07:08] LABS: Glucose,Whole Blood 135 mg/dL (75-99)
[2018-05-16] MEDS: IPRATROPIUM-ALBUTEROL 3 ML NEB INHALATION SCH ×4 (07:22→21:07)
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
[2018-05-16] MEDS ORDERED: ACETAMINOPHEN TAB 500 MG TAB PO PRN (08:17)
--- NOTE | 2018-05-16 08:34 | XR ---
EXAMINATION TYPE: XR chest 1V portable DATE OF EXAM: 05/16/2018 COMPARISON: 05/15/2018 HISTORY: Postop CABG TECHNIQUE: Single frontal view of the chest is obtained. FINDINGS: Left-sided chest tube. There is a small less than 5% left apical pneumothorax. Bilateral c onsolidation and pleural effusion seen. Postoperative change. Atherosclerotic change aorta. IMPRESSION: Postsurgical changes with bilateral infiltrate and small effusion. There is a less than 5% left apical pneumothorax.
[2018-05-16] MEDS: CLOPIDOGREL 75 MG TAB PO SCH (08:36)
[2018-05-16] MEDS: HEPARIN SODIUM,PORCINE 5,000 UNIT/ML 1 ML VIAL SQ SCH ×3 (08:36→22:59)
[2018-05-16] MEDS: ASPIRIN 325 MG TAB PO SCH (08:36)
[2018-05-16] MEDS: ATORVASTATIN 40 MG TAB PO SCH (08:37)
[2018-05-16] MEDS: METOPROLOL TARTRATE 50 MG TAB PO SCH ×2 (08:37→21:05)
[2018-05-16 12:04] LABS: Glucose,Whole Blood 107 mg/dL (75-99)
--- NOTE | 2018-05-16 12:34 | P.PN ---
Subjective Progress Note Date: 05/16/18 Principal diagnosis: Status post CABG, postoperative day #4 Patient was reevaluated today on 05/15/2018, his postoperative day #3, underwent four-vessel bypass myocardial revascularization surgery. He was extubated uneventfully, he is hemodynamically stable, his [place] has been removed, continues to have a left sided chest tube, tiny left apical pneumothorax is noted, small air leak is noted. Overall the patient is doing great, and asymptomatic, doing well with incentive spirometry. Denies any specific complaints. Chest x-ray was reviewed, labs were reviewed, hemoglobin is 8.9. Renal profile is normal left lites are normal. Patient was reevaluated today on 05/16/2018, he is postoperative day #4. Patient is doing well, relatively asymptomatic, doing extremely well with the incentive spirometer. He had his left-sided chest tube removed, tiny left apical pneumo thorax is noted, patient has no symptoms of shortness of breath cough or wheezing. He is in sinus rhythm, and he is able to move around easily. He is presently overflow from selective. Patient is hemodynamically stable, not requiring any inotropes or pressors. Chest tube was removed today from the left side uneventfully. Objective - Vital Signs Vital signs: Vital Signs Temp 98.5 F 05/16/18 08:00 Pulse 85 05/16/18 12:15 Resp 24 05/16/18 08:00 BP 98/61 05/16/18 08:30 Pulse Ox 95 05/16/18 08:00 Intake & Output 05/15/18 05/16/18 05/16/18 18:59 06:59 18:59 Intake Total 440 400 200 Output Total 1999 116 940 Balance -1560 284 -740 Weight 78.3 kg Intake: IV 0 0 Lactated Ringers 1,000 ml 0 0 @ 20 mls/hr IV .Q24H [facility] Rx#:[id number] Pressure Bag 0 0 Intake, IV Titration 200 Amount Magnesium Sulfate-D5w Pmx 200 1 gm In Dextrose/Water 1 100ml.bag @ 100 mls/hr IVPB Q1H [facility] Rx#: [id number] Oral 440 400 Output: Chest Tube Drainage 400 115 Left 400 115 Urine 1600 1 940 Other: Voiding Method Toilet Toilet Toilet Urinal Urinal Urinal # Voids 1 1 # Bowel Movements 2 1 1 ABP, PAP, CO, CI - Last Documented Arterial Blood Pressure 144/43 Pulmonary Artery Pressure 28/12 Cardiac Output 6.4 Cardiac Index 3.3 - Exam Physical Exam: Revealed an 83-year-old white male in no distress. Head: Atraumatic, normocephalic. HEENT:[Neck is supple.] [No neck masses.] [No thyromegaly.] [No JVD.] Chest: [Diminished breath sounds no rhonchi no wheezes symmetrical chest expansion, no chest wall tenderness Cardiac Exam: [Normal S1 and S2, no S3 gallop, no murmur.] Abdomen: [Soft, nontender, no megaly, no rebound, no guarding, normal bowel sounds.] Extremities: [No clubbing, no edema, no cyanosis.] Neurological Exam: [No focal neurologic deficit.] Alert oriented 3. Psychiatric: Normal mood, affect and mental status examination. Skin: No rashes. Musculoskeletal: Normal gait, strength equal bilaterally. No focal deficit. - Labs CBC & Chem 7: 05/16/18 04:43 05/16/18 04:43 Labs: Abnormal Lab Results - Last 24 Hours (Table) 05/15/18 05/15/18 05/16/18 Range/Units 16:51 20:05 04:43 RBC 2.84 L (4.30-5.90) m/uL Hgb 9.3 L (13.0-17.5) gm/dL Hct 28.0 L (39.0-53.0) % POC Glucose (mg/dL) 157 H 168 H (75-99) mg/dL 05/16/18 05/16/18 Range/Units 06:56 11:53 RBC (4.30-5.90) m/uL Hgb (13.0-17.5) gm/dL Hct (39.0-53.0) % POC Glucose (mg/dL) 135 H 107 H (75-99) mg/dL Assessment and Plan Assessment: Impression: 1 severe triple-vessel coronary artery disease, status post CABG, postoperative day #4 2 left tiny apical pneumothorax, chest tube from the left side was removed uneventfully today. 3 lifelong nonsmoker 4 bilateral carotid artery disease 5 chronic congestive heart failure and systolic dysfunction and ejection fraction of 30-35% 6 history of gastric ulcer. 7 strong family history of premature coronary artery disease. Recommendation: Continue incentive spirometry, continue bronchodilators, ambulate the patient, continue to monitor his left apical pneumothorax, continue cardiac meds including aspirin and statin Plavix Cozaar and beta blockers. Continue physical therapy and outpatient cardiac rehab to follow. Continue pain control medications continue to monitor daily labs . continue GI prophylaxis and DVT prophylaxis continue to follow until discharge. Time with Patient: Less than 30
--- NOTE | 2018-05-16 14:41 | P.PN ---
Subjective Patient has postop day 4 status post CABG. He is doing well. He complains of no chest pain except for when he is coughing. No shortness of breath, tolerating food. Objective - Vital Signs Vital signs: Vital Signs Temp 98.5 F 05/16/18 08:00 Pulse 85 05/16/18 12:15 Resp 24 05/16/18 08:00 BP 98/61 05/16/18 08:30 Pulse Ox 95 05/16/18 08:00 Intake & Output 05/15/18 05/16/18 05/16/18 18:59 06:59 18:59 Intake Total 440 400 200 Output Total 1999 116 940 Balance -1560 284 -740 Weight 78.3 kg Intake: IV 0 0 Lactated Ringers 1,000 ml 0 0 @ 20 mls/hr IV .Q24H [facility] Rx#:[id number] Pressure Bag 0 0 Intake, IV Titration 200 Amount Magnesium Sulfate-D5w Pmx 200 1 gm In Dextrose/Water 1 100ml.bag @ 100 mls/hr IVPB Q1H [facility] Rx#: [id number] Oral 440 400 Output: Chest Tube Drainage 400 115 Left 400 115 Urine 1600 1 940 Other: Voiding Method Toilet Toilet Toilet Urinal Urinal Urinal # Voids 1 1 # Bowel Movements 2 1 1 ABP, PAP, CO, CI - Last Documented Arterial Blood Pressure 144/43 Pulmonary Artery Pressure 28/12 Cardiac Output 6.4 Cardiac Index 3.3 - Exam On exam, alert and oriented x3. HEENT: Conjunctivae normal. eyes normal. NECK: No JVD. No thyroid enlargement. No LNs CARDIOVASCULAR: S1, S2 heard. Sternal border feeling good. Chest tubes removed RESPIRATION: Breath sounds diminished in the bases. No rhonchi or crackles. No bronchial breathing. ABDOMEN: Soft, nontender . No guarding. no masses palpable. No ascites, No hepatosplenomegaly.Bowel sounds heard. LEGS: No edema. no swelling NERVOUS SYSTEM: Cranial N 2-12 grossly normal. Moves all 4 limbs. No focal deficits. No sensory deficit. No signs of cerebellar dysfucntion. Skin: no ulcer no rash - Labs CBC & Chem 7: 05/16/18 04:43 05/16/18 04:43 Labs: Abnormal Lab Results - Last 24 Hours (Table) 03/05/15/18 05/16/18 Range/Units 16:51 20:05 04:43 RBC 2.84 L (4.30-5.90) m/uL Hgb 9.3 L (13.0-17.5) gm/dL Hct 28.0 L (39.0-53.0) % POC Glucose (mg/dL) 157 H 168 H (75-99) mg/dL 05/16/18 05/16/18 Range/Units 06:56 11:53 RBC (4.30-5.90) m/uL Hgb (13.0-17.5) gm/dL Hct (39.0-53.0) % POC Glucose (mg/dL) 135 H 107 H (75-99) mg/dL Assessment and Plan Assessment: - Severe triple-vessel disease status post CABG postop day 4 - History of CHF with EF of 30-35% - Apical left pneumothorax status post insertion of chest tube which was removed this morning - Family history of premature CAD - Nonsmoker Plan - Continue supportive care - Continue physical therapy - Continue rest of the medications - Patient will eventually be discharged to rehab if continues to remain stable and if cleared by ICU and cardiology - We will follow up on the patient Time with Patient: Greater than 30
--- NOTE | 2018-05-16 16:38 | PN ---
PROGRESS NOTE Mr. Odonnell is in sinus rhythm, feeling well. He is probably going to be discharged tomorrow and will be moved to telemetry today. Vital signs are stable. There is no JVD. S1, S2 heard normally. Lungs reveal improved air entry. Abdomen and lower extremity exam unchanged. Plan is to continue current medications, incentive spirometry. Beta kathia has been increased. We will move him to telemetry and hopefully home in the next 24-36 hours. MMODL / IJN: [id number] /
[2018-05-16 16:58] LABS: Glucose,Whole Blood 144 mg/dL (75-99)
[2018-05-16 21:03] LABS: Glucose,Whole Blood 178 mg/dL (75-99)
[2018-05-16] MEDS: LOSARTAN 25 MG TAB PO SCH (21:05)
[2018-05-16] MEDS: SENNOSIDES-DOCUSATE SODIUM 1 EACH TAB PO SCH (21:06)
[2018-05-17 02:14] VITALS: RESP 18
[2018-05-17] MEDS: IPRATROPIUM-ALBUTEROL 3 ML NEB INHALATION SCH ×2 (05:38→13:13)
[2018-05-17 05:54] LABS: Glucose,Whole Blood 109 mg/dL (75-99)
[2018-05-17] MEDS: INSULIN ASPART (NovoLOG) 100 UNIT/ML VIAL SQ SCH ×2 (06:27→12:42)
[2018-05-17 06:44] VITALS: PULSE 92
[2018-05-17] MEDS: KETOROLAC 30 MG/ML 1 ML VIAL IVP SCH (06:45)
[2018-05-17] MEDS: PANTOPRAZOLE 40 MG TABLET PO SCH (06:46)
[2018-05-17] MEDS ORDERED: KETOROLAC 30 MG/ML 1 ML VIAL IVP PRN (06:51)
[2018-05-17 06:56] LABS: Basophils % (A) 1 %; Eosinophils # (A) 0.4 k/uL (0-0.7); Eosinophils % (A) 5 %; HCT 31.1 % (39.0-53.0); HGB 9.9 gm/dL (13.0-17.5); Lymphocytes # (A) 1.7 k/uL (1.0-4.8); Lymphocytes % (A) 26 %; MCH 31.3 pg (25.0-35.0); MCHC 31.8 g/dL (31.0-37.0); MCV 98.7 fL (80.0-100.0); Monocytes # (A) 0.5 k/uL (0-1.0); Monocytes % (A) 8 %; Neutrophils # (A) 3.7 k/uL (1.3-7.7); Neutrophils % (A) 57 %; Platelet Count 280 k/uL (150-450); RBC 3.15 m/uL (4.30-5.90); RDW 13.6 % (11.5-15.5); WBC 6.4 k/uL (3.8-10.6)
[2018-05-17 07:17] LABS: Calcium 8.6 mg/dL (8.4-10.2); Potassium 3.5 mmol/L (3.5-5.1)
[2018-05-17] MEDS ORDERED: POTASSIUM CHLORIDE ER 20 MEQ TAB.ER PO STA (07:40)
--- NOTE | 2018-05-17 08:24 | XR ---
EXAMINATION TYPE: XR chest 2V DATE OF EXAM: 05/17/2018 COMPARISON: 05/16/2018 TECHNIQUE: PA and lateral views submitted. HISTORY: Postoperative CABG FINDINGS: There is a less than 5% left apical pneumothorax post chest tube removal. Postsurgical changes are se en with bilateral consolidation and small effusion. No overt failure. Heart size stable. Atherosclero tic change aorta. Hypertrophic and degenerative change of the spine. Subcutaneous emphysema noted and there may be a small amount of pneumomediastinum. IMPRESSION: 1. A small left-sided pneumothorax measuring 5% or less. 2. Postsurgical change with bilateral consolidation and small effusion. 3. A small amount of pneumomediastinum likely postsurgical.
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
--- NOTE | 2018-05-17 09:26 | P.VSCSTY ---
Greater Saphenous Vein Mapping This is bilateral lower extremity greater saphenous vein mapping. Date of service 05/08/2018 Vein quality and ultrasound appearance no visible intraluminal thrombus or wall changes. Vein size groin right 5.8 x 5.3 groin left 8.5 x 5.8 High thigh right 4.9 x 4.6 high thigh left 6.3 x 5.6 Mid thigh right 4.1 x 4.2 mid thigh left 4.8 x 4.1 Above-knee right 4.8 x 3.8 above- knee left 3.3 x 3.6 Below knee right 3.4 x 3.4 below-knee left 3.2 x 3.5 Mid calf right 4.8 x 2.9 mid calf left 5.3 x 3.4 Ankle right 4.1 x 3.4 ankle left 5.1 x 3.6 Impression usable bilateral greater saphenous vein.
--- NOTE | 2018-05-17 09:28 | P.ARTDOP ---
Arterial Doppler LOWER EXTREMITY ARTERIAL DOPPLER: DATE OF SERVICE: 05/08/2018 Reason for study: Preop CABG. Doppler waveforms: Blunted but multiphasic bilaterally throughout. Pulse volume recording: []. Pressure gradients: None found. Ankle-brachial indices: Not occluded on the right and greater than 1 on the left. Toe pressures: [] on the right, [] on the left Impression: Suspect adequate flow bilaterally. Suspect some degree of nonhemodynamically significant calcific wall disease. Clinical correlation recommended..
[2018-05-17] MEDS: ASPIRIN 325 MG TAB PO SCH (10:13)
[2018-05-17] MEDS: ATORVASTATIN 40 MG TAB PO SCH (10:13)
[2018-05-17] MEDS: CLOPIDOGREL 75 MG TAB PO SCH (10:13)
[2018-05-17] MEDS: METOPROLOL TARTRATE 50 MG TAB PO SCH (10:13)
[2018-05-17] MEDS: HEPARIN SODIUM,PORCINE 5,000 UNIT/ML 1 ML VIAL SQ SCH (10:14)
--- NOTE | 2018-05-17 11:17 | P.DS ---
Providers Date of admission: 05/10/18 13:35 Attending physician: Neto Springer Consults: 05/08/18 13:56 Consult Physician Routine Consulting Provider: Oswald Mendez Consult Reason/Comments: CABG Do you want consulting provider notified?: Already Contacted 05/08/18 14:27 Consult Physician Routine Consulting Provider: Fortunato Murray Consult Reason/Comments: preop cabg Do you want consulting provider notified?: Yes 05/10/18 08:00 Consult to Anesthesia Routine Consulting Provider: Anesthesia,Services Consult Reason/Comments: Cardiac Surgery Pre-Op 05/10/18 13:30 Consult Physician Routine Consulting Provider: Merary Dennison Consult Reason/Comments: medical mngt-CABG Do you want consulting provider notified?: Yes 05/12/18 13:49 Consult Physician Routine Consulting Provider: Shweta Goodman Consult Reason/Comments: [place]liquer Consult: post cardiac surgery Do you want consulting provider notified?: Yes Primary care physician: [facility] Course: Discharge diagnosis - Severe triple-vessel disease status post CABG postop day 4 - History of CHF with EF of 30-35% - Apical left pneumothorax status post insertion of chest tube which was removed this morning - Family history of premature CAD - Nonsmoker This very pleasant 83-year-old gentleman who had CABG. He was in the ICU had an uneventful course. He was transferred to [facility] with telemetry unit. He remained comfortable. On 05/17/2018 On exam, alert and oriented x3. HEENT: Conjunctivae normal. eyes normal. NECK: No JVD. No thyroid enlargement. No LNs CARDIOVASCULAR: S1, S2 muffled. No murmur RESPIRATION: Breath sounds diminished in the bases. No rhonchi or crackles. No bronchial breathing. ABDOMEN: Soft, nontender . No guarding. no masses palpable. No ascites, No hepatosplenomegaly.Bowel sounds heard. LEGS: No edema. no swelling NERVOUS SYSTEM: Cranial N 2-12 grossly normal. Moves all 4 limbs. No focal deficits. No sensory deficit. No signs of cerebellar dysfucntion. Skin: no ulcer no rash Patient will be discharged to home with home care His prescriptions have been sent to his preferred pharmacy He is to follow with her appointments as dictated in the discharge summary Patient Condition at Discharge: Fair Plan - Discharge Summary Discharge Rx Participant: Yes New Discharge Prescriptions: New Aspirin 325 mg PO DAILY #30 tab Losartan [Cozaar] 25 mg PO HS #30 tab Furosemide [Lasix] 20 mg PO DAILY #7 tab Atorvastatin [Lipitor] 40 mg PO DAILY #30 tab Metoprolol Tartrate [Lopressor] 50 mg PO BID #60 tab Clopidogrel [Plavix] 75 mg PO DAILY #30 tab Pantoprazole [Protonix] 40 mg PO AC-BRKFST #30 tablet.dr Hernandez-Docusate Sodium [Senokot-S] 2 each PO HS PRN tab PRN Reason: Constipation Acetaminophen Tab [Tylenol] 1,000 mg PO Q6HR PRN #120 tab PRN Reason: Fever And/ Or Pain Bisacodyl [Dulcolax] 10 mg RECTAL DAILY PRN #10 supp PRN Reason: Constipation Discontinued Aspirin EC [Ecotrin Low Dose] 81 mg PO DAILY Metoprolol Succinate (ER) [Toprol Xl] 25 mg PO DAILY Isosorbide Mononitrate ER [Imdur] 30 mg PO DAILY Discharge Medication List Acetaminophen Tab [Tylenol] 1,000 mg PO Q6HR PRN #120 tab 05/17/18 [Rx] Aspirin 325 mg PO DAILY #30 tab 05/17/18 [Rx] Atorvastatin [Lipitor] 40 mg PO DAILY #30 tab 05/17/18 [Rx] Bisacodyl [Dulcolax] 10 mg RECTAL DAILY PRN #10 supp 05/17/18 [Rx] Clopidogrel [Plavix] 75 mg PO DAILY #30 tab 05/17/18 [Rx] Furosemide [Lasix] 20 mg PO DAILY #7 tab 05/17/18 [Rx] Losartan [Cozaar] 25 mg PO HS #30 tab 05/17/18 [Rx] Metoprolol Tartrate [Lopressor] 50 mg PO BID #60 tab 05/17/18 [Rx] Pantoprazole [Protonix] 40 mg PO AC-BRKFST #30 tablet. 05/17/18 [Rx] Sennosides-Docusate Sodium [Senokot-S] 2 each PO HS PRN tab 05/17/18 [Rx] Follow up Appointment(s)/Referral(s): Emma Suero NPC [Nurse Practitioner] - 05/24/18 1:00 pm Eula Shanks NPC [Nurse Practitioner] - 06/13/18 2:30 pm [facility], [NON-STAFF] - 1-2 Days Neto Springer MD [STAFF PHYSICIAN] - 06/16/18 10:00 am Isac Nuñez DO [Primary Care Provider] - 05/26/18 2:20 pm Ted Marcelino MD [STAFF PHYSICIAN] - 06/02/18 4:15 pm Ambulatory/Diagnostic Orders: Complete Blood Count w/diff [LAB.AMB] Time Frame: 3 Days, Location: None Selected Comprehensive Metabolic Panel [LAB.AMB] Time Frame: 3 Days, Location: None Selected Patient Instructions/Handouts: Sternal Precautions (GEN), Coronary Artery Bypass Graft (DC) Activity/Diet/Wound Care/Special Instructions: DISCHARGE INSTRUCTIONS: 1. No driving for 4 weeks, or until physician gives their ok. 2. The patient should sleep in their own bed, no medical bed needed. 3. Stairs are not an issue. If the bedroom is upstairs, it is advised that the patient go up at night and down in the morning for the first week. Go slowly, using handrail and take 1 step at a time. 4. UJSTIN hose are to be worn for 30 days or until physician discontinues. 5. Heart hugger is to be worn 100% of the time until physician discontinues.(except when showering) 6. No lifting, pushing, or pulling more than 10 pounds for 12 weeks. The physician will advise of any restriction changes. 7. The patient is expected to continue the prescribed walking program. 8. Continue pain control per as needed orders. 9. Continue with incentive spirometry and splinting/heart hugger until other ballesteros directed by the physician. 10. Must shower daily using liquid antibacterial soap and a separate white washcloth for each individual incision. 11. Routine sternal incision care. No powders, lotions, ointments on incisions. 12. Please call surgeon/[employer] for temp greater than 101 F or purulent drainage from incisions. 13. All prescriptions given by surgeon for 30 days. Refills need to be filled through geophysical prospector/primary care physician. 14. A Red armband has been placed on the patient. It should be worn for 30 days post surgery and will be removed by the cardiac surgeons. If an ER visit is necessary, please make sure the number on the Red armband is called. HOME HEALTH SERVICES TO PROVIDE: RN SKILLED HOME CARE SERVICES FOR POST-OP SURGICAL PATIENTS WITH THE FOLLOWING: Coronary Artery Bypass Surgery (CABG), Mitral Valve Replacement/Repair ( MVR), Aortic Valve Replacement/Repair (AVR) RN TO CONTINUE EDUCATION FROM ``ROAD TO A HEALTH HEART PATIENT EDUCATION MANUAL (GIVEN TO PATIENT IN THE HOSPITAL) MEDICATION RECONCILIATION WITH EDUCATION NEEDED ON FIRST HOME VISIT EMPHASIZE IMPORTANCE OF WEARING BREAST SUPPORT/HEART HUGGER ENCOURAGE USE OF INCENTIVE SPIROMETER 10 X EVERY HOUR WHILE AWAKE ENCOURAGE UTILIZATION OF LOWER EXTREMITY COMPRESSION STOCKINGS/JUSTIN HOSE and ELEVATE LEGS ABOVE LEVEL OF HEART WHILE AT REST. ENCOURAGE AMBULATION 3-5x/day INCREASING TOLERATES, WHILE AVOID EXTREMES IN TEMPERATURE FREQUENCY: RN TO OPEN THE PATIENT WITHIN 24 HOURS OF DISCHARGE FROM THE HOSPITAL WITH [place] [facility] [place] TO VISIT 2-3 X A WEEK FOR 4 WEEKS ESTABLISHED BY PATIENT NEEDS. LABORATORY: CBC, CMP TO BE DRAWN ON THE THIRD DAY HOME, (RAN STAT) FAX RESULTS TO [phone]. TELEHEALTH PARAMETERS: WEIGHT: NOTIFY MD OF WEIGHT GAIN OF 2 LBS IN 24 HOURS OR 5 LBS IN ONE WEEK HR: NOTIFY MD OF HR <55 BPM OR HR>100 BPM BP: NOTIFY MD IF BP <90/55 OR BP>140/100 O2 SAT: NOTIFY MD IF PO2<93% ON ROOM AIR SEND TELEHEALTH REPORT TO [facility]ASS TUBE BENDER AND CARDIOVASCULAR SURGEON THE FIRST WEEK OF CARE AND THEN BI-WEEKLY. PLEASE ADDITIONALLY COMMUNICATE ANY ABNORMALS AND NEW FINDINGS TO THE SURGEONS OFFICE. Discharge Disposition: HOME WITH HOME HEALTH SERVICES
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
--- NOTE | 2018-05-17 11:48 | P.PN ---
Subjective Progress Note Date: 05/17/18 This is an 83-year-old gentleman who is status post coronary artery bypass grafting surgery postoperative day 5.he has been seen and examined this morning, blood pressure 112/60 with a heart rate in the 80s.White blood cell count 6.4, hemoglobin 9.9, platelet count 280. Sodium 138, potassium 3.5, BUN 15 and creatinine 0.9. He's anticipating discharge home today. Objective - Vital Signs Vital signs: Vital Signs Temp 98.8 F 05/17/18 04:05 Pulse 85 05/17/18 05:50 Resp 18 05/17/18 04:05 BP 113/63 05/17/18 04:05 Pulse Ox 94 L 05/17/18 04:05 Intake & Output 05/16/18 05/17/18 05/17/18 18:59 06:59 18:59 Intake Total 200 140 240 Output Total 1040 200 Balance -840 -60 240 Weight 83.6 kg Intake: IV 20 0.9 20 Intake, IV Titration 200 Amount Magnesium Sulfate-D5w Pmx 200 1 gm In Dextrose/Water 1 100ml.bag @ 100 mls/hr IVPB Q1H [facility] Rx#: [id number] Oral 120 240 Output: Urine 1040 200 Other: Voiding Method Toilet Toilet Urinal Urinal # Voids 1 # Bowel Movements 1 ABP, PAP, CO, CI - Last Documented Arterial Blood Pressure 144/43 Pulmonary Artery Pressure 28/12 Cardiac Output 6.4 Cardiac Index 3.3 - Exam Physical Exam: Revealed an 83-year-old white male in no distress. Head: Atraumatic, normocephalic. HEENT:[Neck is supple.] [No neck masses.] [No thyromegaly.] [No JVD.] Chest: [Diminished breath sounds no rhonchi no wheezes symmetrical chest expansion, no chest wall tenderness Cardiac Exam: [Normal S1 and S2, no S3 gallop, no murmur.] Abdomen: [Soft, nontender, no megaly, no rebound, no guarding, normal bowel sounds.] Extremities: [No clubbing, no edema, no cyanosis.] Neurological Exam: [No focal neurologic deficit.] Alert oriented 3. Psychiatric: Normal mood, affect and mental status examination. Skin: No rashes. Musculoskeletal: Normal gait, strength equal bilaterally. No focal deficit. - Labs CBC & Chem 7: 05/17/18 06:32 05/17/18 06:32 Labs: Abnormal Lab Results - Last 24 Hours (Table) 05/16/18 05/16/18 05/16/18 Range/Units 11:53 16:46 21:01 RBC (4.30-5.90) m/uL Hgb (13.0-17.5) gm/dL Hct (39.0-53.0) % Glucose (74-99) mg/dL POC Glucose (mg/dL) 107 H 144 H 178 H (75-99) mg/dL 05/17/18 05/17/18 05/17/18 Range/Units 05:53 06:32 06:32 RBC 3.15 L (4.30-5.90) m/uL Hgb 9.9 L (13.0-17.5) gm/dL Hct 31.1 L (39.0-53.0) % Glucose 111 H (74-99) mg/dL POC Glucose (mg/dL) 109 H (75-99) mg/dL Assessment and Plan Plan: Impression and plan: #11 severe triple-vessel coronary artery disease, status post CABG, postoperative day #5 #2 left tiny apical pneumothorax, chest tube from the left side was removed #3 lifelong nonsmoker #4 bilateral carotid artery disease #5 chronic congestive heart failure and systolic dysfunction and ejection fraction of 30-35% #6 history of gastric ulcer. #7 strong family history of premature coronary artery disease. #8 hyperlipidemia Plan From cardiology's perspective, patient may be able to be discharged home once cleared by primary. A follow-up appointment will be made in the office post discharge. DNP note has been reviewed, I agree with a documented findings and plan of care. Patient was seen and examined.
--- NOTE | 2018-05-17 11:49 | P.PN ---
Subjective Progress Note Date: 05/17/18 Principal diagnosis: Coronary artery disease status post coronary artery bypass grafting. Postoperative day #5. Patient is seen today in follow-up on the selective care unit. He is currently awake and alert in no acute distress. Sitting up in the chair at the bedside. He denies any worsening shortness of breath, cough or congestion. Chest x-ray shows a small left-sided pneumothorax measuring less than 5%. Some postsurgical changes with bilateral consolidation and small effusions. Small amount of pneumomediastinum. He is working well with the incentive spirometer. He is maintaining good O2 saturations in the 90s on room air. He is afebrile. Hemodynamically stable. White count 6.4. Hemoglobin 9.9. Creatinine 0.97. He is anxious to go home. Objective - Vital Signs Vital signs: Vital Signs Temp 98.8 F 05/17/18 04:05 Pulse 85 05/17/18 05:50 Resp 18 05/17/18 04:05 BP 113/63 05/17/18 04:05 Pulse Ox 94 L 05/17/18 04:05 Intake & Output 05/16/18 05/17/18 05/17/18 18:59 06:59 18:59 Intake Total 200 140 240 Output Total 1040 200 Balance -840 -60 240 Weight 83.6 kg Intake: IV 20 0.9 20 Intake, IV Titration 200 Amount Magnesium Sulfate-D5w Pmx 200 1 gm In Dextrose/Water 1 100ml.bag @ 100 mls/hr IVPB Q1H [facility] Rx#: [id number] Oral 120 240 Output: Urine 1040 200 Other: Voiding Method Toilet Toilet Urinal Urinal # Voids 1 # Bowel Movements 1 ABP, PAP, CO, CI - Last Documented Arterial Blood Pressure 144/43 Pulmonary Artery Pressure 28/12 Cardiac Output 6.4 Cardiac Index 3.3 - Exam GENERAL EXAM: Alert, active, comfortable in no apparent distress. On room air. HEAD: Normocephalic. EYES: Normal reaction of pupils, equal size. NOSE: Clear with pink turbinates. THROAT: No erythema or exudates. NECK: No masses, no JVD. CHEST: Heart hugger in place. Sternum stable. LUNGS: Equal air entry with faint crackles in the posterior bases. CVS: S1 and S2 normal with no audible murmur, regular rhythm. ABDOMEN: No hepatosplenomegaly, normal bowel sounds, no guarding or rigidity. SPINE: No scoliosis or deformity SKIN: No rashes CENTRAL NERVOUS SYSTEM: No focal deficits, tone is normal in all 4 extremities. EXTREMITIES: There is no peripheral edema. No clubbing, no cyanosis. Per ipheral pulses are intact. - Labs CBC & Chem 7: 05/17/18 06:32 05/17/18 06:32 Labs: Abnormal Lab Results - Last 24 Hours (Table) 05/16/18 05/16/18 05/16/18 Range/Units 11:53 16:46 21:01 RBC (4.30-5.90) m/uL Hgb (13.0-17.5) gm/dL Hct (39.0-53.0) % Glucose (74-99) mg/dL POC Glucose (mg/dL) 107 H 144 H 178 H (75-99) mg/dL 05/17/18 05/17/18 05/17/18 Range/Units 05:53 06:32 06:32 RBC 3.15 L (4.30-5.90) m/uL Hgb 9.9 L (13.0-17.5) gm/dL Hct 31.1 L (39.0-53.0) % Glucose 111 H (74-99) mg/dL POC Glucose (mg/dL) 109 H (75-99) mg/dL Assessment and Plan Assessment: Impression: 1 severe triple-vessel coronary artery disease, status post CABG, postoperative day #5 2 left tiny apical pneumothorax, chest tube from the left side was removed uneventfully today. 3 lifelong nonsmoker 4 bilateral carotid artery disease 5 chronic congestive heart failure and systolic dysfunction and ejection fraction of 30-35% 6 history of gastric ulcer. 7 strong family history of premature coronary artery disease. Recommendation: The patient was seen and evaluated by Dr. Mirza. Chest x-ray and labs were re viewed. He is stable from the pulmonary standpoint. The plan is to discharge home today. He should follow-up in our office in 1-2 weeks' time. We'll repeat a chest x-ray then. He has are both encouraged to call sooner with any pulmonary concerns. I, the cosigning physician, performed a history & physical examination of the patient. Lungs sounds with faint crackles in posterior bases. Maintaining good O2 saturations in the 90s on room air. I discussed the assessment and plan of care with my nurse practitioner, Eula Shanks. I attest to the above note as dictated by her.
[2018-05-17 11:51] VITALS: BP 106/58; TEMP 98.4
[2018-05-17 11:58] LABS: Glucose,Whole Blood 116 mg/dL (75-99)
== END 2018-05-17 13:28 | disposition home health service (06) | DRG 233 ==
LOC: CATHCVL 10:50 → 3SCARD 13:59 → CATHCVL 05-10 13:32 → 3SCARD 05-10 13:35 → 2SICU 05-12 06:48 → 3SCARD 05-16 18:42
PROVIDERS: ADMIT Surgery; ATTEND Surgery
PROC: 4A023N7 Measurement of Cardiac Sampling and Pressure, Left Heart, Percutaneous Approach (ICD-10-PCS; 2018-05-08)
PROC: B2151ZZ Fluoroscopy of Left Heart using Low Osmolar Contrast (ICD-10-PCS; 2018-05-08)
PROC: B2111ZZ Fluoroscopy of Multiple Coronary Arteries using Low Osmolar Contrast (ICD-10-PCS; 2018-05-08)
PROC: B44HZZZ Ultrasonography of Bilateral Lower Extremity Arteries (ICD-10-PCS; 2018-05-08)
PROC: 021209W Bypass Coronary Artery, Three Arteries from Aorta with Autologous Venous Tissue, Open Approach (ICD-10-PCS; 2018-05-12)
PROC: 06BP4ZZ Excision of Right Saphenous Vein, Percutaneous Endoscopic Approach (ICD-10-PCS; 2018-05-12)
PROC: 5A1221Z Performance of Cardiac Output, Continuous (ICD-10-PCS; 2018-05-12)
PROC: B246ZZ4 Ultrasonography of Right and Left Heart, Transesophageal (ICD-10-PCS; 2018-05-12)
PROC: 02100Z9 Bypass Coronary Artery, One Artery from Left Internal Mammary, Open Approach (ICD-10-PCS; principal; 2018-05-12 08:00)
DX: I25.110 Atherosclerotic heart disease of native coronary artery with unstable angina pectoris (principal); I50.21 Acute systolic (congestive) heart failure; D62 Acute posthemorrhagic anemia; J95.811 Postprocedural pneumothorax; I11.0 Hypertensive heart disease with heart failure; I25.82 Chronic total occlusion of coronary artery; I65.23 Occlusion and stenosis of bilateral carotid arteries; I25.84 Coronary atherosclerosis due to calcified coronary lesion; E78.5 Hyperlipidemia, unspecified; K21.9 Gastro-esophageal reflux disease without esophagitis; M19.90 Unspecified osteoarthritis, unspecified site; R91.8 Other nonspecific abnormal finding of lung field; Z79.82 Long term (current) use of aspirin; Z79.899 Other long term (current) drug therapy; Z87.81 Personal history of (healed) traumatic fracture; Z87.11 Personal history of peptic ulcer disease; Z90.49 Acquired absence of other specified parts of digestive tract; Z96.652 Presence of left artificial knee joint; Z88.0 Allergy status to penicillin; Z82.49 Family history of ischemic heart disease and other diseases of the circulatory system; Y83.2 Surgical operation with anastomosis, bypass or graft as the cause of abnormal reaction of the patient, or of later complication, without mention of misadventure at the time of the procedure; Y92.231 Patient bathroom in hospital as the place of occurrence of the external cause
CPT/HCPCS: 71045; 71046; 71250; 80048; 80053; 80061; 80074; 81003; 82330; 82805; 83036; 83735; 84443; 85025; 85027; 85520; 85610; 85730; 86850; 86891; 86900; 86901; 86920; 87070; 87086; 93306; 93458; 93880; 93923; 93970; 94002; 94640

== ENCOUNTER 2018-07-07 20:15 | Emergency (ER) | payer MEDICARE ==
--- NOTE | 2018-07-07 20:44 | ED ---
Chest Pain HPI - General Chief Complaint: Chest Pain Stated Complaint: Chest pain Time Seen by Provider: 07/07/18 20:27 Source: patient Mode of arrival: wheelchair Limitations: no limitations - History of Present Illness Initial Comments: Patient is an 83-year-old male with a recent history of CABG on 05/12 presents with a chief complaint of chest pain after an episode of coughing. Patient states his abdomen just prior to arrival. He states since that time he has had pain in the center of his chest, worse with deep breathing. There are no alleviating factors. Timing is constant. - Related Data Previous Rx's Medication Instructions Recorded Aspirin 325 mg PO DAILY #30 tab 05/17/18 Atorvastatin [Lipitor] 40 mg PO DAILY #30 tab 05/17/18 Clopidogrel [Plavix] 75 mg PO DAILY #30 tab 05/17/18 Losartan [Cozaar] 25 mg PO HS #30 tab 05/17/18 Metoprolol Tartrate [Lopressor] 50 mg PO BID #60 tab 05/17/18 Pantoprazole [Protonix] 40 mg PO VASILIY-SANTOFSMt #30 tablet. 05/17/18 oxyCODONE HCL [Oxaydo] 5 mg PO Q6H PRN 3 Days #12 tab 07/07/18 Allergies Allergy/AdvReac Type Severity Reaction Status Date / Time Penicillins Allergy Rash/Hives Verified 07/07/18 20:54 Review of Systems ROS Statement: Those systems with pertinent positive or pertinent negative responses have been documented in the HPI. ROS Other: All systems not noted in ROS Statement are negative. Cardiovascular: Reports: chest pain Past Medical History Past Medical History: Chest Pain / Angina Additional Past Medical History / Comment(s): THROAT FEELS LIKE IT IS ON FIRE WITH EXERTION PER PT, history of gastric ulcer History of Any Multi-Drug Resistant Organisms: None Reported Past Surgical History: Appendectomy, Cholecystectomy, Joint Replacement, Tonsillectomy Additional Past Surgical History / Comment(s): LT TKA. COLONOSCOPY Past Anesthesia/Blood Transfusion Reactions: No Reported Reaction Past Psychological History: No Psychological Hx Reported Smoking Status: Never smoker Past Alcohol Use History: None Reported Past Drug Use History: None Reported - Past Family History Mother Family Medical History: No Reported History Son(s) Family Medical History: Coronary Artery Disease (CAD), Myocardial Infarction (VT) Additional Family Medical History / Comment(s): Had myocardial infarction 48 years old with stent placement General Exam Limitations: no limitations General appearance: alert, in no apparent distress Head exam: Present: atraumatic, normocephalic Eye exam: Present: normal appearance ENT exam: Present: normal exam Neck exam: Present: normal inspection Respiratory exam: Present: normal lung sounds bilaterally Cardiovascular Exam: Present: regular rate, normal rhythm GI/Abdominal exam: Present: soft. Absent: distended, tenderness Rectal exam: Present: deferred Extremities exam: Present: normal inspection Back exam: Present: normal inspection Neurological exam: Present: alert, oriented X3 Psychiatric exam: Present: normal affect, normal mood Skin exam: Present: warm, dry, other (patient has a sub centimeter area of dehisence of the midline sternotomy ) Course Vital Signs 07/07/18 07/07/18 07/07/18 20:20 22:18 22:24 Temperature 98.8 F Pulse Rate 88 103 H Pulse Rate [ 102 H Mechanic Sound Technician ] Respiratory 20 20 Rate Blood Pressure 187/88 197/99 O2 Sat by Pulse 91 L 96 Oximetry Chest Pain [facility] Patient presents with chief complaint of chest pain after a coughing fit. On initial evaluation, vital signs are stable though the oxygen saturation is 91% o n room air. Patient is in no acute distress, he is clearly awake and alert, he is not having any respiratory distress. Patient to be evaluated with basic labs including cardiac enzymes, and chest x-ray. EKG performed at 2046 shows sinus rhythm with PACs, ventricular rate 92 bpm, segments are otherwise within normal limits, no acute signs of ischemia. EKG appears improved compared to previous s emily performed on 05/12/2018. patient complaining of increased pain at his sternotomy location with deep breathing. given vital signs and improvement of patients O2 saturation on room air, I have a very low suspicion for PE. 10:48 PM lab evaluation of this patient is unremarkable. Troponin is negative. Chest x- ray shows improvement when compared to previous x-ray. Postsurgical changes appear stable. On reevaluation, the patient is feeling somewhat improved. Oxygen saturation are 99% on room air. Discussed the results with the patient, at this time he is stable for discharge. Visual be written a prescription for oxycodone, 5 mg tablets. An in-depth discussion with him as well as regarding the use of this medication. Patient was instructed to continue using his other prescribed medications as instructed. Follow-up with primary care, cardiothoracic surgery in 1-2 days, return to ED if symptoms worsen or change. Given patient's hypertension, he was given an additional 50 mg of metoprolol. He was instructed to follow-up with his crane hoist or lift operator regarding his hypertension. Disposition Clinical Impression: Chest pain Disposition: HOME SELF-CARE Condition: Good Instructions (If sedation given, give patient instructions): Chest Pain (ED), Costochondritis (ED) Is patient prescribed a controlled substance at d/c from ED?: Yes When asked, does pt state using other controlled substances?: No If prescribed controlled substance>3 days was MAPS reviewed?: Prescribed <3 Days If opioid is for acute pain is fill amount 7 days or less?: Yes If Rx opioid, was Start Talking consent form obtained?: Yes Referrals: Isac Nuñez DO [Primary Care Provider] - 1-2 days
[2018-07-07 21:10] LABS: Basophils % (A) 0 %; Eosinophils # (A) 0.3 k/uL (0-0.7); Eosinophils % (A) 2 %; HCT 41.8 % (39.0-53.0); Lymphocytes # (A) 1.3 k/uL (1.0-4.8); Lymphocytes % (A) 11 %; MCH 29.5 pg (25.0-35.0); MCHC 32.2 g/dL (31.0-37.0); MCV 91.7 fL (80.0-100.0); Mean Platelet Volume 7.3; Monocytes # (A) 0.6 k/uL (0-1.0); Monocytes % (A) 5 %; Neutrophils # (A) 10.2 k/uL (1.3-7.7); Neutrophils % (A) 81 %; Platelet Count 247 k/uL (150-450); RBC 4.56 m/uL (4.30-5.90); RDW 14.4 % (11.5-15.5); WBC 12.6 k/uL (3.8-10.6)
--- NOTE | 2018-07-07 21:17 | XR ---
EXAMINATION TYPE: XR chest 2V DATE OF EXAM: 07/07/2018 COMPARISON: 05/17/2018 HISTORY: Chest pain TECHNIQUE: Frontal and lateral views of the chest are obtained. FINDINGS: There is some mild linear density at the left lung base. The other lung solorzano are clear. There is no heart failure. Thoracic aorta is atheromatous. There are sternal wires. IMPRESSION: Minimal pleural reaction and subsegmental atelectasis at the left lung base improved com pared to last exam. No heart failure seen. There is clearing of pleural fluid compared to old exam.
[2018-07-07 21:20] LABS: Calcium 9.8 mg/dL (8.4-10.2); Potassium 4.5 mmol/L (3.5-5.1)
[2018-07-07 21:31] LABS: Prothrombin Time 10.9 sec (9.0-12.0)
[2018-07-07 21:38] LABS: HGB 13.5 gm/dL (13.0-17.5)
[2018-07-07] MEDS ORDERED: METOPROLOL TARTRATE 50 MG TAB PO STA (22:22)
[2018-07-07 23:10] VITALS: BP 166/103; PULSE 104; RESP 18; TEMP 97.8
== END 2018-07-07 23:00 | disposition home or self-care (01) ==
LOC: EC 20:15
DX: R07.89 Other chest pain (principal); R07.1 Chest pain on breathing; I49.1 Atrial premature depolarization; I10 Essential (primary) hypertension; Z88.0 Allergy status to penicillin; Z95.1 Presence of aortocoronary bypass graft; Z98.890 Other specified postprocedural states; Z82.49 Family history of ischemic heart disease and other diseases of the circulatory system
CPT/HCPCS: 36415; 71046; 80048; 83880; 84484; 85025; 85610; 93005; 99284

== ENCOUNTER 2018-07-14 17:47 | Inpatient (IN) | payer MEDICARE ==
[2018-07-14] MEDS ORDERED: VANCOMYCIN IV PER PHARMACY 1 EACH MISC MISCELLANE PRN (18:24)
[2018-07-14] MEDS ORDERED: SODIUM CHLORIDE 0.9% 500 ML 500 ML IV STA (18:25)
[2018-07-14] MEDS ORDERED: VANCOMYCIN 1,500 MG in SODIUM CHLORIDE 0.9% 250 ML IVPB STA (18:31)
[2018-07-14 19:09] LABS: Basophils % (A) 0 %; Eosinophils # (A) 0.1 k/uL (0-0.7); Eosinophils % (A) 1 %; HCT 36.6 % (39.0-53.0); HGB 12.1 gm/dL (13.0-17.5); Lymphocytes # (A) 1.2 k/uL (1.0-4.8); Lymphocytes % (A) 15 %; MCH 29.8 pg (25.0-35.0); MCHC 33.2 g/dL (31.0-37.0); MCV 89.7 fL (80.0-100.0); Mean Platelet Volume 6.6; Monocytes # (A) 0.7 k/uL (0-1.0); Monocytes % (A) 8 %; Neutrophils # (A) 5.9 k/uL (1.3-7.7); Neutrophils % (A) 74 %; Platelet Count 421 k/uL (150-450); RBC 4.07 m/uL (4.30-5.90); RDW 14.4 % (11.5-15.5); WBC 8.1 k/uL (3.8-10.6)
--- NOTE | 2018-07-14 19:10 | ED ---
General Adult HPI - General Chief complaint: Wound/Laceration Stated complaint: MRSA Time Seen by Provider: 07/14/18 18:00 Source: patient, RN notes reviewed, old records reviewed Mode of arrival: ambulatory Limitations: no limitations - History of Present Illness Initial comments: 83-year-old male patient past medical history of hypertension, coronary artery disease status post four-vessel bypass on 05/12/[address] Springer presents to ED for wound infection. Patient reports that approximately one week ago he had a mediastinal drain removed and developed a skin infection. Patient has been on ciprofloxacin for approximately one week for this problem prescribed by his pharmacy care coordinator. Patient states that he was told today that his culture grew MRSA and to present to ER for admission and IV antibiotics. Patient does complain of some generalized myalgias and fatigue. Patient has also complained of some subjective fevers and chills. Denies any chest pain or shortness of breath this time. Denies any other complaints. Systemic: Pt denies fatigue, rash. Pt denies weakness, night sweats, weight loss. Neuro: Pt denies headache, visual disturbances, syncope or pre-syncope. HEENT: Pt denies ocular discharge or irritation, otalgia, rhinorrhea, phar yngitis or notable lymphadenopathy. Cardiopulmonary: Pt denies chest pain, SOB, heart palpitations, dyspnea on exertion. Abdominal/GI: Pt denies abdominal pain, n/v/d. : Pt denies dysuria, burning w/ urination, frequency/urgency. Denies new onset urinary or bowel incontinence. MSK: Pt denies myalgia, loss of strength or function in extremities. Neuro: Pt denies new onset weakness, paresthesias. - Related Data Home Medications Medication Instructions Recorded Confirmed Ciprofloxacin HCl [Cipro] 500 mg PO BID 07/14/18 07/14/18 Previous Rx's Medication Instructions Recorded Aspirin 325 mg PO DAILY #30 tab 05/17/18 Atorvastatin [Lipitor] 40 mg PO DAILY #30 tab 05/17/18 Clopidogrel [Plavix] 75 mg PO DAILY #30 tab 05/17/18 Losartan [Cozaar] 25 mg PO HS #30 tab 05/17/18 Metoprolol Tartrate [Lopressor] 50 mg PO BID #60 tab 05/17/18 Allergies Allergy/AdvReac Type Severity Reaction Status Date / Time Penicillins Allergy Rash/Hives Verified 07/14/18 18:12 Review of Systems ROS Statement: Those systems with pertinent positive or pertinent negative responses have been documented in the HPI. ROS Other: All systems not noted in ROS Statement are negative. Past Medical History Past Medical History: Chest Pain / Angina Additional Past Medical History / Comment(s): THROAT FEELS LIKE IT IS ON FIRE WITH EXERTION PER PT, history of gastric ulcer History of Any Multi-Drug Resistant Organisms: MRSA Date of last positivie culture/infection: 2018 Past Surgical History: Appendectomy, Cholecystectomy, Joint Replacement, Tonsillectomy Additional Past Surgical History / Comment(s): LT TKA. COLONOSCOPY Past Anesthesia/Blood Transfusion Reactions: No Reported Reaction Past Psychological History: No Psychological Hx Reported Smoking Status: Never smoker Past Alcohol Use History: None Reported Past Drug Use History: None Reported - Past Family History Mother Family Medical History: No Reported History Son(s) Family Medical History: Coronary Artery Disease (CAD), Myocardial Infarction ([place]) Additional Family Medical History / Comment(s): Had myocardial infarction 48 years old with stent placement General Exam - General Exam Comments Initial Comments: Constitutional: NAD, AOX3, Pt has pleasant affect. HEENT: NC/AT, trachea midline, neck supple, no lymphadenopathy. Posterior pharynx non erythematous, without exudates. External ears appear normal, without discharge. Mucous membranes moist. Eyes PERRLA, EOM intact. There is no scleral icterus. No pallor noted. Cardiopulmonary: RRR, no murmurs, rubs or gallops, no JVD noted. Lungs CTAB in anterior and posterior solorzano. No peripheral edema. Abdominal exam: Abdomen soft and non-distended. Abdomen non-tender to palpation in all 4 quadrants. Bowel sounds active in LLQ. No hepatosplenomegaly. No ecchymosis Neuro: CN II-XII grossly intact. No nuchal rigidity. MSK: Approximately 2 x 2 centimeter ulceration and pocket of pus in midsternal region. Mild surrounding erythema. No erythema. Cultures obtained. Purulent drainage noted. No fluctuance. No crepitus. No posterior calf tenderness bilaterally, homans sign negative bilaterally. Posterior tibialis and radial pulse +2 bilaterally. Sensation intact in upper and lower extremities. Full acti ve ROM in upper and lower extremities, 5/5 stregnth. Limitations: no limitations Course Vital Signs 07/14/18 07/14/18 17:50 19:30 Temperature 98.8 F Pulse Rate 89 96 Respiratory 18 18 Rate Blood Pressure 156/85 141/75 O2 Sat by Pulse 99 96 Oximetry Medical Decision Making - Medical Decision Making 83-year-old male patient past medical history of hypertension, coronary artery disease status post four-vessel bypass on 05/12/[address] Springer presents to ED for wound infection. Patient reports that approximately one week ago he had a mediastinal drain removed and developed a skin infection. Patient has been on ciprofloxacin for approximately one week for this problem prescribed by his pharmacy care coordinator. Patient states that he was told today that his culture grew MRSA and to present to ER for admission and IV antibiotics. Patient does complain of some generalized myalgias and fatigue. Patient has also complained of some subjective fevers and chills. Denies any chest pain or shortness of breath this time. Denies any other complaints. Patient vital signs stable, afebrile. Physical exam displayed: Approximately 2 x 2 centimeter ulceration and pocket of pus in midsternal region. Mild surrounding erythema. No erythema. Cultures obtained. Purulent drainage noted. No fluctuance. No crepitus. Laboratory investigations are non-impressive CBC, CMP. Troponin was negative. EKG is not concerning for acute ischemia. Patient began on IV antibiotics cefepime and vancomycin. Blood cultures and wound culture are pending. CXR displayed no acute process. Patient will be admitted for IV antibiotics and continued evaluation. Case discussed and pt seen by Dr. Regan. - Lab Data Result diagrams: 07/14/18 18:34 07/14/18 18:34 Lab Results 07/14/18 07/14/18 07/14/18 Range/Units 18:34 18:34 18:34 WBC 8.1 (3.8-10.6) k/uL RBC 4.07 L (4.30-5.90) m/uL Hgb 12.1 L (13.0-17.5) gm/dL Hct 36.6 L (39.0-53.0) % MCV 89.7 (80.0-100.0) fL MCH 29.8 (25.0-35.0) pg MCHC 33.2 (31.0-37.0) g/dL RDW 14.4 (11.5-15.5) % Plt Count 421 (150-450) k/uL Neutrophils % 74 % Lymphocytes % 15 % Monocytes % 8 % Eosinophils % 1 % Basophils % 0 % Neutrophils # 5.9 (1.3-7.7) k/uL Lymphocytes # 1.2 (1.0-4.8) k/uL Monocytes # 0.7 (0-1.0) k/uL Eosinophils # 0.1 (0-0.7) k/uL Basophils # 0.0 (0-0.2) k/uL Sodium 134 L (137-145) mmol/L Potassium 4.1 (3.5-5.1) mmol/L Chloride 102 (98-107) mmol/L Carbon Dioxide 21 L (22-30) mmol/L Anion Gap 11 mmol/L BUN 14 (9-20) mg/dL Creatinine 0.82 (0.66-1.25) mg/dL Est GFR (CKD-EPI)AfAm >90 (>60 ml/min/1.73 sqM) Est GFR (CKD-EPI)NonAf 83 (>60 ml/min/1.73 sqM) Glucose 109 H (74-99) mg/dL Plasma Lactic Acid [place] 1.2 (0.7-2.0) mmol/L Calcium 9.2 (8.4-10.2) mg/dL Total Bilirubin 0.9 (0.2-1.3) mg/dL AST 63 H (17-59) U/L ALT 78 H (21-72) U/L Alkaline Phosphatase 159 H (38-126) U/L Troponin I (0.000-0.034) ng/mL Total Protein 6.6 (6.3-8.2) g/dL Albumin 3.7 (3.5-5.0) g/dL 07/14/18 Range/Units 18:34 WBC (3.8-10.6) k/uL RBC (4.30-5.90) m/uL Hgb (13.0-17.5) gm/dL Hct (39.0-53.0) % MCV (80.0-100.0) fL MCH (25.0-35.0) pg MCHC (31.0-37.0) g/dL RDW (11.5-15.5) % Plt Count (150-450) k/uL Neutrophils % % Lymphocytes % % Monocytes % % Eosinophils % % Basophils % % Neutrophils # (1.3-7.7) k/uL Lymphocytes # (1.0-4.8) k/uL Monocytes # (0-1.0) k/uL Eosinophils # (0-0.7) k/uL Basophils # (0-0.2) k/uL Sodium (137-145) mmol/L Potassium (3.5-5.1) mmol/L Chloride (98-107) mmol/L Carbon Dioxide (22-30) mmol/L Anion Gap mmol/L BUN (9-20) mg/dL Creatinine (0.66-1.25) mg/dL Est GFR (CKD-EPI)AfAm (>60 ml/min/1.73 sqM) Est GFR (CKD-EPI)NonAf (>60 ml/min/1.73 sqM) Glucose (74-99) mg/dL Plasma Lactic Acid [place] (0.7-2.0) mmol/L Calcium (8.4-10.2) mg/dL Total Bilirubin (0.2-1.3) mg/dL AST (17-59) U/L ALT (21-72) U/L Alkaline Phosphatase (38-126) U/L Troponin I <0.012 (0.000-0.034) ng/mL Total Protein (6.3-8.2) g/dL Albumin (3.5-5.0) g/dL - EKG Data -: EKG Interpreted by [place] EKG Comments: Ventricular rate 91, NJ interval 156, QRS 112, QT/QTC 362/445. Normal sensory rhythm, normal EKG, no concern for acute ischemia. Disposition Clinical Impression: Post-operative infection Disposition: ADMITTED IP TO THIS HOSP Condition: Serious Is patient prescribed a controlled substance at d/c from ED?: No Referrals: Isac Nuñez DO [Primary Care Provider] - 1-2 days
[2018-07-14 19:19] LABS: ALT 78 U/L (21-72); AST 63 U/L (17-59); Albumin 3.7 g/dL (3.5-5.0); Alkaline Phosphatase 159 U/L (38-126); Anion Gap 11 mmol/L; Blood Urea Nitrogen 14 mg/dL (9-20); Calcium 9.2 mg/dL (8.4-10.2); Carbon Dioxide 21 mmol/L (22-30); Chloride 102 mmol/L (98-107); Glucose 109 mg/dL (74-99); Potassium 4.1 mmol/L (3.5-5.1); Sodium 134 mmol/L (137-145); Total Bilirubin 0.9 mg/dL (0.2-1.3); Total Protein 6.6 g/dL (6.3-8.2)
--- NOTE | 2018-07-14 19:25 | XR ---
EXAMINATION: XR chest 2V DATE AND TIME: 07/14/2018 7:18 PM CLINICAL INDICATION: PHH; Pain TECHNIQUE: Departmental protocol COMPARISON: 07/07/2018 FINDINGS: The lungs are well-expanded and clear. However, a few linear shadows are noted, seen on the prior fiordaliza dy, consistent with pulmonary scarring. The pleural spaces are negative. The cardiac silhouette is not enlarged. Sternal sutures and mediastinal clips are noted, with EKG res ults. The remainder of the mediastinal silhouette is unremarkable. The skeletal structures and soft tissues are negative for acute findings. IMPRESSION: No acute process.
[2018-07-14] MEDS ORDERED: NALOXONE 0.4 MG/ML 1 ML VIAL IV PRN (20:06)
[2018-07-14] MEDS: ACETAMINOPHEN TAB 325 MG TAB PO PRN (21:39)
[2018-07-14] MEDS: SODIUM CHLORIDE 0.9% 1,000 ML IV SCH (21:43)
[2018-07-14] MEDS: CEFEPIME 2 GM in SODIUM CHLORIDE 0.9% 100 ML IVPB SCH (21:43)
[2018-07-15] MEDS: ATORVASTATIN 40 MG TAB PO SCH (07:03)
[2018-07-15] MEDS: ASPIRIN 325 MG TAB PO SCH (07:03)
[2018-07-15] MEDS: HEPARIN SODIUM,PORCINE 5,000 UNIT/ML 1 ML VIAL SQ SCH ×3 (07:04→23:23)
[2018-07-15] MEDS: METOPROLOL TARTRATE 50 MG TAB PO SCH ×2 (07:04→20:17)
[2018-07-15] MEDS: CLOPIDOGREL 75 MG TAB PO SCH (07:04)
[2018-07-15] MEDS: PANTOPRAZOLE 40 MG TABLET PO SCH (07:04)
[2018-07-15] MEDS ORDERED: VANCOMYCIN 1,500 MG in SODIUM CHLORIDE 0.9% 250 ML IVPB SCH (08:00)
[2018-07-15] MEDS: CEFEPIME 2 GM in SODIUM CHLORIDE 0.9% 100 ML IVPB SCH (09:38)
[2018-07-15] MEDS ORDERED: RX INFO: IV CONTRAST WAS GIVEN 1 EACH MISC MISCELLANE PRN (10:57)
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
[2018-07-15] MEDS: metroNIDAZOLE-NS PMX 500 MG in SALINE 1 100ML.BAG IVPB SCH ×3 (11:20→23:34)
[2018-07-15 12:12] LABS: Appearance,Urine Clear (Clear); Bilirubin,Urine Negative (Negative); Blood,Urine Negative (Negative); Color,Urine Yellow; Glucose,Urine (UA) Negative (Negative); Ketones,Urine Trace (Negative); Leukocyte Esterase,Urine Negative (Negative); Nitrite,Urine Negative (Negative); PH, Urine 5.5 (5.0-8.0); Protein,Urine Trace (Negative); Urobilinogen,Urine <2.0 mg/dL (<2.0)
--- NOTE | 2018-07-15 12:21 | CT ---
EXAMINATION TYPE: CT chest w con DATE OF EXAM: 07/15/2018 COMPARISON: Chest x-ray 07/14/[address] 05/09/2018 HISTORY: Post operative wound infection CT DLP: 296.7 mGycm Automated exposure control for dose reduction was used. CONTRAST: CT scan of the chest is performed with IV Contrast, patient injected with 296.7 mL of Isovue 370. FINDINGS: Lack of contrast could compromise sensitivity. The patient is post median sternotomy. There is air along the sternal wound with associated skin thic kening, wound dehiscence. Sternal wires are present. Air is present along the sternum wound, there is no bony fusion. Some inflammatory changes present deep to the sternum with air density, similar find ings present superficial to the sternum. No focal abscess. LUNGS: There is some dependent atelectatic change. No sizable effusion. Lung nodule stable along the right hemidiaphragm, scattered nodules subcentimeter in size as described in prior report. MEDIASTINUM: There are no greater than 1 cm hilar or mediastinal lymph nodes. No pericardial effusi on is seen. There are coronary artery calcifications. AORTA: Root of the aorta measures 4 cm. Ascending aorta is 4.2 cm. Proximal descending aorta 2.7 cm. OTHER: The patient is post cholecystectomy. IMPRESSION: Findings compatible with patient's history of postoperative wound infection. There may B E associated phlegmon, no associated abscess at this time.
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
[2018-07-15] MEDS: ceFAZolin IN SWFI 2 GM/20 ML SYRINGE IVP SCH ×2 (16:13→23:23)
[2018-07-15] MEDS: ACETAMINOPHEN TAB 325 MG TAB PO PRN (18:04)
[2018-07-15] MEDS: LOSARTAN 25 MG TAB PO SCH (20:17)
[2018-07-15] MEDS: SODIUM CHLORIDE 0.9% 1,000 ML IV SCH (20:18)
[2018-07-15] MEDS: MELATONIN 5 MG TABLET PO PRN (23:37)
--- NOTE | 2018-07-15 23:52 | P.CONS ---
History of Present Illness - Reason for Consult Consult date: 07/15/18 Sternal wound infection Requesting physician: Benji Avila - Chief Complaint Pain and drainage from the chest wound 1 week - History of Present Illness Patient is 83 year old male who is status post coronary artery bypass grafting on 05/12/2018 the patient did have uneventful postoperative course and did well for almost 2 months the patient said around Jul 07 2018 he did have severe coughing spell and afterwards he still having central chest pain which wa s sharp in nature and almost 10 out of 10 with no radiation with the symptom the patient presented to [facility] with the patient was evaluated by ER physician he did have cardiac workup which was negative and subsequently discharged home over the next 3 days the patient noticed to have small hole in the middle part of the sternal incision opened up leading to some yellow drainage for the patient was evaluated CT surgery office patient did have cleaning of the wound on and was packed he did have cultures obtained and was started on an oral antibiotic and seemed to have a follow-up visit on July 12 with the area was opened up and cleaned further and continued with oral antibiotics, on a follow-up visit on July 13 the patient seemed to have problems with significant drainage from the wound area for the patient has been admitted to [facility] with the patient has been evaluated by the physician patient did have a CT of the chest did show some Phelgem formation but no d rainable abscess patient has been admitted hospital he was started on vancomycin and [facility] for further recommendation regarding antibiotic therapy, patient has been evaluated by CT surgery this morning an area below initial opening has been open up with drainage of some purulent material, both the wounds on the sternal area has been packed patient currently did have a dull aching pain 5 out of 10 and no radiation patient denies significant shortness of breath cough or sputum production denies having high-grade fever patient wound culture obtained on July 12 is growing MSSA Review of Systems Review of system Constitutional: The patient denies any fever did have some chills. Eyes: No complaint ENT: No complaint Respiratory: No complaint Cardiovascular: As per history of present illness Gastrointestinal: No complaint Genitourinary: No complaint Musculoskeletal: No complaint Integumentary: as per history of present illness Endocrine : No complaint Psycologial : No complaint Neurological: No complaint. Past Medical History Past Medical History: Coronary Artery Disease (CAD), Chest Pain / Angina, Heart Failure, Hyperlipidemia, Neurologic Disorder Additional Past Medical History / Comment(s): THROAT FEELS LIKE IT IS ON FIRE WITH EXERTION PER PT, history of gastric ulcer, bilateral internal carotid artery stenosis 50-70% History of Any Multi-Drug Resistant Organisms: MRSA Year Discovered:: 2019 MDRO Source:: Chest Past Surgical History: Appendectomy, Cholecystectomy, Joint Replacement, Tonsillectomy Additional Past Surgical History / Comment(s): LT TKA. COLONOSCOPY. 4 vessel CABG 05/12/2018 Past Anesthesia/Blood Transfusion Reactions: No Reported Reaction Past Psychological History: No Psychological Hx Reported Smoking Status: Never smoker Past Alcohol Use History: None Reported Past Drug Use History: None Reported - Past Family History Mother Family Medical History: No Reported History Son(s) Family Medical History: Coronary Artery Disease (CAD), Myocardial Infarction ([place]) Additional Family Medical History / Comment(s): Had myocardial infarction 48 years old with stent placement Medications and Allergies Home Medications Medication Instructions Recorded Confirmed Type Aspirin 325 mg PO DAILY #30 tab 05/17/18 07/14/18 Rx Atorvastatin [Lipitor] 40 mg PO DAILY #30 tab 05/17/18 07/14/18 Rx Clopidogrel [Plavix] 75 mg PO DAILY #30 tab 05/17/18 07/14/18 Rx Losartan [Cozaar] 25 mg PO HS #30 tab 05/17/18 07/14/18 Rx Metoprolol Tartrate [Lopressor] 50 mg PO BID #60 tab 05/17/18 07/14/18 Rx Ciprofloxacin HCl [Cipro] 500 mg PO BID 07/14/18 07/14/18 History Allergies Allergy/AdvReac Type Severity Reaction Status Date / Time Penicillins Allergy Rash/Hives Verified 07/14/18 18:12 Physical Exam Vitals: Vital Signs Temp Pulse Pulse Resp BP BP Pulse Ox 07/15/18 07:00 97.8 F 81 17 138/86 96 07/15/18 01:25 98.4 F 87 16 109/73 97 07/15/18 00:00 16 07/14/18 21:45 87 16 07/14/18 20:30 98.1 F 97 18 142/78 96 07/14/18 19:30 96 18 141/75 96 07/14/18 17:50 98.8 F 89 18 156/85 99 Intake and Output 07/14/18 07/15/18 07/15/18 22:59 06:59 14:59 Intake Total 1330 460 480 Balance 1330 460 480 Intake: Intake, IV Titration 370 160 Amount Cefepime 2 gm In Sodium 100 Chloride 0.9% 100 ml @ 200 mls/hr IVPB Q12HR [facility] Rx#:[id number] Sodium Chloride 0.9% 1, 20 160 000 ml @ 20 mls/hr IV . Q24H [facility] Rx#:[id number] Vancomycin 1,500 mg In 250 Sodium Chloride 0.9% 250 ml @ 125 mls/hr IVPB Q12H [facility] Rx#:[id number] Oral 960 300 480 Other: Voiding Method Toilet Toilet # Voids 1 2 Weight 78.018 kg General: The patient is awake and alert, in no distress. Skin: no rashes and no masses palpable. Eye: Pupils are equal, round, there is normal conjunctiva bilaterally. Ears, nose, mouth and throat: There are moist mucous membranes and no oral lesions. Neck: The neck is supple, there is no thyromegaly. Cardiovascular: S1-S2 regular rate and rhythm. Midline sternal wounds 2, no significant slough tissue minimal drainage some surrounding erythema no foul- smelling Respiratory: Unlabored breathing clear to auscultation bilaterally Gastrointestinal: Soft, non-distended, non-tender abdomen without masses or organomegaly noted. Neurological: There are no obvious motor or sensory deficits. Coordination appears grossly intact. Speech is normal. Psychiatric: Patient is awake and alert and oriented 3, appropriate mood & affect, normal judgment. Results CBC & Chem 7: 07/16/18 06:29 07/16/18 06:29 Labs: Abnormal Lab Results - Last 24 Hours (Table) 07/14/18 07/14/18 07/14/18 Range/Units 12:00 18:34 18:34 RBC 4.07 L (4.30-5.90) m/uL Hgb 12.1 L (13.0-17.5) gm/dL Hct 36.6 L (39.0-53.0) % Sodium 134 L (137-145) mmol/L Carbon Dioxide 21 L (22-30) mmol/L Glucose 109 H (74-99) mg/dL AST 63 H (17-59) U/L ALT 78 H (21-72) U/L Alkaline Phosphatase 159 H (38-126) U/L Urine Protein Trace H (Negative) Urine Ketones Trace H (Negative) Microbiology - Last 24 Hours (Table) 07/14/18 18:34 Gram Stain - Preliminary Chest Wound Culture - Preliminary Assessment and Plan Assessment: 1-patient with sternal wound status post coronary bypass grafting with the outpatient culture positive for MSSA and CT of the chest and tissues inflammation and area around the sternum with 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 with the CT negative for any abscess formation status post bedside debridement and drainage 2-patient with a penicillin ALLERGY that would limit the number of antibiotic safe to use (1) Sternal osteomyelitis Current Visit: Yes Status: Acute Code(s): M86.9 - OSTEOMYELITIS, UNSPECIFIED SNOMED Code(s): 61409275 (2) MSSA (methicillin susceptible Staphylococcus aureus) infection Current Visit: Yes Status: Acute Code(s): A49.01 - METHICILLIN SUSCEP STAPH INFECTION, UNSP SITE SNOMED Code(s): 635080786 Plan: 1-we will discontinue cefepime and vancomycin and Flagyl 2-start the patient on cefazolin 2 g every 8 hours 3-patient will need PICC line once his blood cultures are negative for at least 6 weeks of IV antibiotic therapy 4-local wound care continue per surgery may benefit from Aquacel silver packing of the wound we will follow on clinical condition and cultures to further adjust medication if needed Thank you for this consultation will follow this patient will Time with Patient: Greater than 30
[2018-07-16 06:49] LABS: HCT 34.2 % (39.0-53.0); HGB 10.8 gm/dL (13.0-17.5); MCH 28.8 pg (25.0-35.0); MCHC 31.6 g/dL (31.0-37.0); MCV 91.1 fL (80.0-100.0); Mean Platelet Volume 7.3; Platelet Count 412 k/uL (150-450); RBC 3.75 m/uL (4.30-5.90); RDW 14.2 % (11.5-15.5); WBC 7.4 k/uL (3.8-10.6)
[2018-07-16 07:03] LABS: Anion Gap 8 mmol/L; Blood Urea Nitrogen 13 mg/dL (9-20); Calcium 8.6 mg/dL (8.4-10.2); Carbon Dioxide 23 mmol/L (22-30); Chloride 105 mmol/L (98-107); Glucose 108 mg/dL (74-99); Potassium 3.9 mmol/L (3.5-5.1); Sodium 136 mmol/L (137-145)
[2018-07-16] MEDS: CLOPIDOGREL 75 MG TAB PO SCH (07:14)
[2018-07-16] MEDS: METOPROLOL TARTRATE 50 MG TAB PO SCH ×2 (07:15→19:56)
[2018-07-16] MEDS: ATORVASTATIN 40 MG TAB PO SCH (07:15)
[2018-07-16] MEDS: ASPIRIN 325 MG TAB PO SCH (07:15)
[2018-07-16] MEDS: PANTOPRAZOLE 40 MG TABLET PO SCH (07:15)
[2018-07-16] MEDS: ceFAZolin IN SWFI 2 GM/20 ML SYRINGE IVP SCH ×2 (07:17→15:40)
[2018-07-16] MEDS: HEPARIN SODIUM,PORCINE 5,000 UNIT/ML 1 ML VIAL SQ SCH ×2 (07:19→15:40)
--- NOTE | 2018-07-16 08:49 | P.PN ---
Subjective Progress Note Date: 07/16/18 Principal diagnosis: Sternal wound infection, positive for MSSA on final cultures sent from July 10, cultures from July 14 still pending but presumptive staph present. History of sev ere triple vessel coronary artery disease status post urgent CABG on 05/12/2018, chronic systolic heart failure, hyperlipidemia, bilateral internal carotid artery stenosis 50-70%, family history of premature coronary artery disease, history of gastric ulcer. The patient is currently sitting up in the recliner attempting to eat breakfast in no acute distress. States that wound area hurts with any physical contact but denies pain otherwise. Denies shortness of breath. Hemodynamically stable. Afebrile. White blood cell count is normal. The patient's only complaint is that food does not taste good and he is having a difficult time with oral intake. Objective - Vital Signs Vital signs: Vital Signs Temp 98.1 F 07/16/18 07:00 Pulse 80 07/16/18 07:00 Resp 16 07/16/18 07:00 BP 133/74 07/16/18 07:00 Pulse Ox 96 07/16/18 07:00 Intake & Output 07/15/18 07/16/18 07/16/18 18:59 06:59 18:59 Intake Total 720 Output Total 700 Balance 720 -700 Intake: Oral 720 Output: Urine 700 Other: Voiding Method Toilet Toilet Urinal # Voids 1 1 - Constitutional General appearance: Present: cooperative, no acute distress - Respiratory Details: Lungs sounds clear but diminished bilaterally in the bases. Respirations even, nonlabored. Currently on room air with oxygen saturation 96%. Able to achieve 2000 mL on his incentive spirometry. - Cardiovascular Details: S1, S2 present. Regular rate and rhythm, sinus rhythm on telemetry. Palpable peripheral pulses bilaterally. No edema present. No calf pain or tenderness noted. - Gastrointestinal Gastrointestinal Comment(s): Abdomen soft, nontender, nondistended. Active bowel sounds present 4 quadrants. Tolerating diet. - Genitourinary Genitourinary Comment(s): Continues to void - Integumentary Integumentary Comment(s): Anterior chest incision continues with yellow purulent drainage in the superior wound, inferior to his initial wound an incision was made a by the surgeon and this area remains without purulent drainage. - Neurologic Neurologic: Present: CNII-XII intact - Musculoskeletal Musculoskeletal: Present: gait normal, strength equal bilaterally - Psychiatric Psychiatric: Present: A&O x's 3, appropriate affect, intact judgment & insight - Allied health notes Allied health notes reviewed: nursing - Labs CBC & Chem 7: 07/16/18 06:29 07/16/18 06:29 Labs: Abnormal Lab Results - Last 24 Hours (Table) 07/14/18 07/16/18 07/16/18 Range/Units 12:00 06:29 06:29 RBC 3.75 L (4.30-5.90) m/uL Hgb 10.8 L (13.0-17.5) gm/dL Hct 34.2 L (39.0-53.0) % Sodium 136 L (137-145) mmol/L Glucose 108 H (74-99) mg/dL Urine Protein Trace H (Negative) Urine Ketones Trace H (Negative) Microbiology - Last 24 Hours (Table) 07/14/18 18:34 Blood Culture - Preliminary Blood No Growth after 24 hours 07/14/18 18:34 Gram Stain - Preliminary Chest Wound Culture - Preliminary Presumptive Staph aureus Assessment and Plan Assessment: 1. Sternal wound infection, culture from 07/10/2018 positive for MSSA, culture from 07/14/2018 pending but presumptive staph 2. Transaminitis 3. History of severe triple vessel coronary artery disease status post urgent four-vessel CABG 4. Chronic systolic heart failure 5. Hyperlipidemia 6. Bilateral internal carotid artery stenosis 50-70% 7. Family history of premature coronary artery disease 8. History of gastric ulcer Plan: 1. Dressing to be changed daily, cleaned with normal saline, packed, covered with 4 x 4 and ABDs. 2. Antibiotics per infectious disease. Vancomycin/cefepime/Flagyl discontinued, patient started on Ancef 3. Patient will need PICC line for 6 weeks of IV antibiotics. This was discu ssed with the patient. 4. Patient should shower daily. 5. Encourage incentive spirometry. 6. Increase activity, ambulate in hallway. 7. Medical management per primary care service. 8. Will continue to follow while hospitalized. Time with Patient: Greater than 30
[2018-07-16] MEDS ORDERED: KETOROLAC 30 MG/ML 1 ML VIAL IVP PRN (11:40)
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
[2018-07-16] MEDS: COLLAGENASE 250 UNIT/GM OINTMENT 30 GM TUBE TOPICAL SCH (15:40)
--- NOTE | 2018-07-16 15:45 | PN ---
PROGRESS NOTE DATE OF SERVICE: 07/16/2018. REASON FOR FOLLOW UP: Acute sternal osteomyelitis, MSSA. INTERVAL HISTORY: The patient is currently afebrile. Patient has been breathing comfortably. Patient's swelling and pain has improved. Wound drainage has decreased. Denies having any shortness of breath or cough. No abdominal pain or any diarrhea. PHYSICAL EXAMINATION: Blood pressure 133/74 with a pulse of 80, temperature 98.1. He is 96% on room air. General description is an elderly male lying in bed in no distress. Respiratory system: Unlabored breathing. Clear to auscultation anteriorly. Heart S1, S2. Regular rate and rhythm. Abdomen: Soft. No tenderness. Sternal wound, upper wound did have some slough tissue. Not significant slough to the lower wound. Surrounding redness has improved. No foul smelling drainage. LABS: Hemoglobin is 10.8, white count 7.4, BUN of 13, creatinine 0.71. DIAGNOSTIC IMPRESSION AND PLAN: The patient with sternal wound with concern for underlying osteomyelitis. Outpatient culture with MSSA. Culture done here now showing Staph aureus likely the same pathogen. Blood culture has been negative so far. The patient will get a PICC line on Tuesday and IV cefazolin 2 g q.8 hours to continue for a total of 6 weeks with weekly monitoring of CBC, BMP and sed rate. Local care will be switched over to Santyl especially to the upper wound which did have minimal slough tissue at the base. We will monitor his clinical course closely. at the bedside. Questions and concerns were answered. MMODL / IJN: [id number] / BRIAN
[2018-07-16] MEDS ORDERED: VANCOMYCIN TROUGH DUE 1 EACH MISC MISCELLANE ONE (19:00)
[2018-07-16] MEDS: LOSARTAN 25 MG TAB PO SCH (19:56)
[2018-07-16] MEDS: SODIUM CHLORIDE 0.9% 1,000 ML IV SCH (19:57)
[2018-07-17] MEDS: ACETAMINOPHEN TAB 325 MG TAB PO PRN ×2 (00:44→20:05)
[2018-07-17] MEDS: HEPARIN SODIUM,PORCINE 5,000 UNIT/ML 1 ML VIAL SQ SCH ×3 (00:44→15:13)
[2018-07-17] MEDS: ceFAZolin IN SWFI 2 GM/20 ML SYRINGE IVP SCH ×3 (00:45→15:14)
[2018-07-17] MEDS: MELATONIN 5 MG TABLET PO PRN (00:53)
[2018-07-17] MEDS: METOPROLOL TARTRATE 50 MG TAB PO SCH ×2 (07:04→20:01)
[2018-07-17] MEDS: ASPIRIN 325 MG TAB PO SCH (07:04)
[2018-07-17] MEDS: CLOPIDOGREL 75 MG TAB PO SCH (07:04)
[2018-07-17] MEDS: ATORVASTATIN 40 MG TAB PO SCH (07:05)
[2018-07-17] MEDS: PANTOPRAZOLE 40 MG TABLET PO SCH (07:05)
--- NOTE | 2018-07-17 08:16 | P.PN ---
Subjective Progress Note Date: 07/17/18 Principal diagnosis: Sternal wound infection, positive for MSSA on final cultures sent from July 10 as well as cultures from July 14. History of severe triple vessel coronary artery disease status post urgent CABG on 05/12/2018, chronic systolic heart failure, hyperlipidemia, bilateral internal carotid artery stenosis 50-70%, family history of premature coronary artery disease, history of gastric ulcer. The patient is currently sitting up in the recliner attempting to eat breakfast in no acute distress. States that wound area hurts with any physical contact but denies pain otherwise. Denies shortness of breath. Hemodynamically stable. Afebrile. Was able to shower yesterday. No new complaints. Objective - Vital Signs Vital signs: Vital Signs Temp 98.1 F 07/17/18 07:00 Pulse 76 07/17/18 07:00 Resp 17 07/17/18 07:00 BP 135/69 07/17/18 07:00 Pulse Ox 92 L 07/17/18 07:00 Intake & Output 07/16/18 07/17/18 07/17/18 18:59 06:59 18:59 Intake Total 240 Output Total 400 Balance 240 -400 Intake: Oral 240 Output: Urine 400 Other: Voiding Method Toilet Toilet Urinal Urinal # Voids 3 1 - Constitutional General appearance: Present: cooperative, no acute distress - Respiratory Details: Lungs sounds clear but diminished bilaterally in the bases. Respirations even, nonlabored. Currently on room air with oxygen saturation 96%. Able to achieve 2500 mL on his incentive spirometry. - Cardiovascular Details: S1, S2 present. Regular rate and rhythm, sinus rhythm on telemetry. Sternum stable. Palpable peripheral pulses bilaterally. No edema present. No calf pain or tenderness noted. - Gastrointestinal Gastrointestinal Comment(s): Abdomen soft, nontender, nondistended. Active bowel sounds present 4 quadrants. Tolerating diet. - Genitourinary Genitourinary Comment(s): Continues to void - Integumentary Integumentary Comment(s): Anterior chest incision continues with yellow purulent drainage in the superior wound, inferior to his initial wound an incision was made a by the surgeon and this area remains without purulent drainage. - Neurologic Neurologic: Present: CNII-XII intact - Musculoskeletal Musculoskeletal: Present: gait normal, strength equal bilaterally - Psychiatric Psychiatric: Present: A&O x's 3, appropriate affect, intact judgment & insight - Allied health notes Allied health notes reviewed: nursing - Labs CBC & Chem 7: 07/16/18 06:29 07/16/18 06:29 Labs: Abnormal Lab Results - Last 24 Hours (Table) 07/17/18 Range/Units 07:13 C-Reactive Protein 78.3 H (<10.0) mg/L Microbiology - Last 24 Hours (Table) 07/14/18 18:34 Blood Culture - Preliminary Blood No Growth after 48 hours 07/14/18 18:34 Gram Stain - Final Chest Wound Culture - Final Staphylococcus aureus Assessment and Plan Assessment: 1. Sternal wound infection, culture from 07/10/2018 and 07/14/2018 positive for MSSA 2. Transaminitis 3. History of severe triple vessel coronary artery disease status post urgent four-vessel CABG 4. Chronic systolic heart failure 5. Hyperlipidemia 6. Bilateral internal carotid artery stenosis 50-70% 7. Family history of premature coronary artery disease 8. History of gastric ulcer Plan: 1. Dressing to be changed daily, cleaned with normal saline, Santyl applied, packed, covered with 4 x 4 and ABDs. 2. Antibiotics per infectious disease. Continue Ancef. 3. Patient will need PICC line for 6 weeks of IV antibiotics. This was discussed with the patient. 4. Patient should shower daily. 5. Encourage incentive spirometry. 6. Increase activity, ambulate in hallway. 7. Medical management per primary care service. 8. Will continue to follow while hospitalized. Time with Patient: Greater than 30
[2018-07-17] MEDS ORDERED: SENNOSIDES-DOCUSATE SODIUM 1 EACH TAB PO PRN (08:34)
[2018-07-17] MEDS: COLLAGENASE 250 UNIT/GM OINTMENT 30 GM TUBE TOPICAL SCH (12:13)
[2018-07-17 14:47] VITALS: RESP 16
[2018-07-17 14:53] VITALS: BMI 25.4
--- NOTE | 2018-07-17 17:41 | PN ---
PROGRESS NOTE DATE OF SERVICE: 07/17/2018. REASON FOR FOLLOW UP: MSSA sternal osteomyelitis. INTERVAL HISTORY: The patient is currently afebrile. Patient has been breathing comfortably. Pain is currently controlled over the sternal area. No shortness of breath or cough. No abdominal pain or any diarrhea. PHYSICAL EXAMINATION: Blood pressure 121/70 with a pulse of 73. Temperature 98.5. He is 95% on room air. General description is an elderly male up in the chair in no distress. Respiratory system: Unlabored breathing. Clear to auscultation anteriorly. Heart S1, S2. Regular rate and rhythm. Abdomen soft, no tenderness. LABS: Sed rate is 87 with CRP of 78.3. Blood culture has been negative. Chest wall wound culture with MSSA. DIAGNOSTIC IMPRESSION AND PLAN: Patient with MSSA chest wall wound with underlying osteomyelitis, status post bedside debridement. The patient is currently covered with cefazolin. He will get his PICC line tomorrow with a plan for cefazolin 2 g q.8h for at least 6 weeks. Hopefully at home with weekly monitoring of CBC, BMP and sed rate. Local wound care with Santyl. Continue supportive care. MMODL / IJN: [id number] /
[2018-07-17] MEDS: SODIUM CHLORIDE 0.9% 1,000 ML IV SCH (20:00)
[2018-07-17] MEDS: LOSARTAN 25 MG TAB PO SCH (20:01)
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
[2018-07-18] MEDS: ceFAZolin IN SWFI 2 GM/20 ML SYRINGE IVP SCH ×3 (00:05→15:52)
[2018-07-18] MEDS: HEPARIN SODIUM,PORCINE 5,000 UNIT/ML 1 ML VIAL SQ SCH ×3 (00:05→15:53)
[2018-07-18 07:34] LABS: HCT 33.6 % (39.0-53.0); HGB 10.5 gm/dL (13.0-17.5); MCH 28.5 pg (25.0-35.0); MCHC 31.4 g/dL (31.0-37.0); MCV 90.7 fL (80.0-100.0); Platelet Count 505 k/uL (150-450); RDW 14.7 % (11.5-15.5); WBC 6.8 k/uL (3.8-10.6)
[2018-07-18 08:10] LABS: Anion Gap 9 mmol/L; Blood Urea Nitrogen 12 mg/dL (9-20); Calcium 8.6 mg/dL (8.4-10.2); Carbon Dioxide 24 mmol/L (22-30); Chloride 102 mmol/L (98-107); Glucose 111 mg/dL (74-99); Potassium 4.2 mmol/L (3.5-5.1); Sodium 135 mmol/L (137-145)
[2018-07-18] MEDS: CLOPIDOGREL 75 MG TAB PO SCH (08:28)
[2018-07-18] MEDS: METOPROLOL TARTRATE 50 MG TAB PO SCH (08:29)
[2018-07-18] MEDS: ASPIRIN 325 MG TAB PO SCH (08:29)
[2018-07-18] MEDS: PANTOPRAZOLE 40 MG TABLET PO SCH (08:33)
[2018-07-18] MEDS: ATORVASTATIN 40 MG TAB PO SCH (08:33)
[2018-07-18] MEDS: COLLAGENASE 250 UNIT/GM OINTMENT 30 GM TUBE TOPICAL SCH (08:40)
[2018-07-18] MEDS ORDERED: LIDOCAINE 1% INJ 10MG/ML (20 ML MDV) SQ ONE (09:36)
--- NOTE | 2018-07-18 12:06 | P.PN ---
Subjective Progress Note Date: 07/18/18 Principal diagnosis: Sternal wound infection, positive for MSSA on final cultures sent from July 10 as well as cultures from July 14. History of severe triple vessel coronary artery disease status post urgent CABG on 05/12/2018, chronic systolic heart failure, hyperlipidemia, bilateral internal carotid artery stenosis 50-70%, family history of premature coronary artery disease, history of gastric ulcer. The patient is currently sitting up in the recliner in no acute distress. States pain in sternal wound is less. Denies shortness of breath. Hemodynamically stable. Afebrile. Received PICC line today, hoping for discharge to home. No new complaints. Objective - Vital Signs Vital signs: Vital Signs Temp 98.5 F 07/18/18 06:56 Pulse 76 07/18/18 08:00 Resp 16 07/18/18 08:00 BP 130/66 07/18/18 06:56 Pulse Ox 95 07/18/18 06:56 Intake & Output 07/17/18 07/18/18 07/18/18 18:59 06:59 18:59 Intake Total 590 Balance 590 Weight 78.018 kg Intake: Oral 590 Other: Voiding Method Toilet Toilet Toilet Urinal Urinal Urinal # Voids 3 2 - Constitutional General appearance: Present: cooperative, no acute distress - Respiratory Details: Lungs sounds clear but diminished bilaterally in the bases. Respirations even, nonlabored. Currently on room air with oxygen saturation 96%. Able to achieve 2000 mL on his incentive spirometry. - Cardiovascular Details: S1, S2 present. Regular rate and rhythm, sinus rhythm on telemetry. Sternum stable. Palpable peripheral pulses bilaterally. No edema present. No calf pain or tenderness noted. - Gastrointestinal Gastrointestinal Comment(s): Abdomen soft, nontender, nondistended. Active bowel sounds present 4 quadrants. Tolerating diet. - Genitourinary Genitourinary Comment(s): Continues to void - Integumentary Integumentary Comment(s): Anterior chest incision much sugar drier with less slough to superior wound, inferior wound without much drainage. - Neurologic Neurologic: Present: CNII-XII intact - Musculoskeletal Musculoskeletal: Present: gait normal, strength equal bilaterally - Allied health notes Allied health notes reviewed: nursing - Labs CBC & Chem 7: 07/18/18 07:14 07/18/18 07:14 Labs: Abnormal Lab Results - Last 24 Hours (Table) 07/18/18 07/18/18 Range/Units 07:14 07:14 RBC 3.70 L (4.30-5.90) m/uL Hgb 10.5 L (13.0-17.5) gm/dL Hct 33.6 L (39.0-53.0) % Plt Count 505 H (150-450) k/uL Sodium 135 L (137-145) mmol/L Glucose 111 H (74-99) mg/dL Microbiology - Last 24 Hours (Table) 07/14/18 18:34 Blood Culture - Preliminary Blood No Growth after 72 hours Assessment and Plan Assessment: 1. Sternal wound infection, culture from 07/10/2018 and 07/14/2018 positive for MSSA 2. Transaminitis 3. History of severe triple vessel coronary artery disease status post urgent four-vessel CABG 4. Chronic systolic heart failure 5. Hyperlipidemia 6. Bilateral internal carotid artery stenosis 50-70% 7. Family history of premature coronary artery disease 8. History of gastric ulcer Plan: 1. Dressing to be changed daily, cleaned with normal saline, Santyl applied, packed, covered with 4 x 4 and ABDs. 2. Antibiotics per infectious disease. Continue Ancef. 3. Patient will need PICC line for 6 weeks of IV antibiotics. This was discussed with the patient. 4. Patient should shower daily. 5. Encourage incentive spirometry. 6. Increase activity, ambulate in hallway. 7. Medical management per primary care service. 8. Will continue to follow while hospitalized. May be discharged to home with home care from cardiothoracic standpoint when OK with other services and antibiotics set up. has been taught how to care for sternal wounds. Time with Patient: Greater than 30
--- NOTE | 2018-07-18 12:47 | IR ---
EXAMINATION TYPE: IR cvc insert >=5 years DATE OF EXAM: 07/18/2018 COMPARISON: NONE CLINICAL HISTORY: Infection Needs long-term intravenous access for antibiotics. PROCEDURE: After informed consent, the skin overlying the left basilic vein was localized with ultrasound and no kimberlee to be compressible and patent. An ultrasound image was obtained and submitted on the patient's c moffett. The overlying skin was prepped and draped and Lidocaine was used for local anesthesia. A skin gena was made with a scalpel. Access was gained to the vein under ultrasound guidance with a 21 gau ge needle and a 0.018 inch wire was advanced. Access site was dilated with Peel-Away sheath and cath eter tailored to the appropriate length and advanced such that the distal tip is at the cavoatrial ju nction. Spot image was obtained verifying placement. Catheter was fixed to the skin and a sterile d ressing was placed following hemostasis. Catheter was aspirated and flushed with saline. Patient wa s discharged in stable condition without complication.Maximal barrier technique is utilized. Ultraso und image is documented on the chart. Ultrasound used with sterile technique. Fluoro time and fluoroscopic images submitted to document procedure: 31 intraoperative images documen t the procedure, 0.1 minutes fluoroscopy time IMPRESSION: STATUS POST ULTRASOUND AND FLUOROSCOPIC GUIDED PICC LINE PLACEMENT, READY FOR USE. THIS PROCEDURE WAS PERFORMED BY THE UNDERSIGNED.
--- NOTE | 2018-07-18 14:48 | PN ---
PROGRESS NOTE DATE OF SERVICE: 04/07/2018. REASON FOR FOLLOW UP: Sacral osteomyelitis MSSA. INTERVAL HISTORY: The patient is currently afebrile. Patient has been breathing comfortably, pain to the wound area has improved. No nausea, no vomiting. No abdominal pain or any diarrhea. He did have cut his PICC line currently waiting for outpatient antibiotic arrangement. PHYSICAL EXAMINATION: Blood pressure 1/36, pulse of 73, temperature 98.5. He is 95% on room air description is an elderly male up in the bed in no distress respiratory system: Unlabored breathing clear to auscultation anteriorly heart S1, S2. Regular rate and rhythm soft no tenderness. LABS: Hemoglobin is 10.5, white count 6.8. BUN of 10, creatinine 0.66. Blood culture has been negative. DIAGNOSTIC IMPRESSION AND PLAN: Patient MSSA sternal osteomyelitis, status post bedside debridement. Patient's blood culture negative. PICC line IV antibiotic outpatient setting with cefazolin 2 g q.8 hours for total of 6 weeks with CBC and sedimentation rate. Once antibiotic arranged the patient should be able to go home from ID standpoint. Local wound care with Santyl and follow up in the office 1 week. MMODL / IJN: [id number] /
[2018-07-18 18:19] VITALS: BP 119/75; PULSE 87; TEMP 98.4
--- NOTE | 2018-07-19 08:51 | CDI ---
Documentation Clarification Form Date: 07/19/18 From: Jenise Denis Phone: If you have a question regarding this query, please contact Janine Colon at [phone] between 8am and 5pm. Admit Date: 07/14/2018 7:36:00 PM Patient Name: Tono Odonnell Visit Number: [id number] Discharge Date: 07/18/2018 4:17:00 PM ATTENTION: The Clinical Documentation Specialists (CDI) and [facility] Coding Staff appreciate your assistance in clarifying documentation. Please respond to the clarification below the line at the bottom and electronically sign. The CDI & [facility] Coding staff will review the response and follow-up if needed. Please note: Queries are made part of the Legal Health Record. If you have any questions, please contact the author of this message via ITS. Benji Avila MD Osteomyelitis has been documented in Dr. Diaz's consult note and progress notes. History/Risk Factors: Patient had recent CABG and has a postop wound infection of the chest. Clinical Indicators: Pain, tenderness, MSSA infection, drainage X-Ray Results: Per Dr. Diaz's documentation, CT of the chest and tissues inflammation and area around the sternum with 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 with the CT negative for any abscess formation. Treatment: IV Kefzol, IV Cefepime, IV Metronidazole, IV Vancomycin In your professional opinion, please specify the following: Acuity: Acute Chronic Subacute Unable to Determine Cause: Viral (specify organism if know): Bacterial (specify organism if know): Other (please specify): Unable to Determine Associated condition (if applicable): Major osseous defect (specify site) Other (please specify): MTDD
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
== END 2018-07-18 16:17 | disposition home health service (06) | DRG 863 ==
LOC: EC 17:47 → 4SSUR 19:36 → 4MS4W 07-15 01:05 → 4SSUR 07-15 01:05
PROVIDERS: ADMIT Hospitalist; ATTEND Hospitalist
PROC: 0HD5XZZ Extraction of Chest Skin, External Approach (ICD-10-PCS; 2018-07-15)
PROC: 02HV33Z Insertion of Infusion Device into Superior Vena Cava, Percutaneous Approach (ICD-10-PCS; principal; 2018-07-18 09:30)
DX: T81.49XA Infection following a procedure, other surgical site, initial encounter (principal); I50.22 Chronic systolic (congestive) heart failure; L03.313 Cellulitis of chest wall; M86.18 Other acute osteomyelitis, other site; I11.0 Hypertensive heart disease with heart failure; I65.23 Occlusion and stenosis of bilateral carotid arteries; B95.61 Methicillin susceptible Staphylococcus aureus infection as the cause of diseases classified elsewhere; E78.5 Hyperlipidemia, unspecified; I25.10 Atherosclerotic heart disease of native coronary artery without angina pectoris; R74.0 Nonspecific elevation of levels of transaminase and lactic acid dehydrogenase [LDH]; E66.9 Obesity, unspecified; Z79.02 Long term (current) use of antithrombotics/antiplatelets; Z79.82 Long term (current) use of aspirin; Z79.899 Other long term (current) drug therapy; Z88.0 Allergy status to penicillin; Z95.1 Presence of aortocoronary bypass graft; Z96.652 Presence of left artificial knee joint; Z87.11 Personal history of peptic ulcer disease; Z90.49 Acquired absence of other specified parts of digestive tract; Z82.49 Family history of ischemic heart disease and other diseases of the circulatory system
CPT/HCPCS: 36415; 36573; 71046; 71260; 80048; 80053; 80202; 81003; 83605; 84484; 85025; 85027; 85610; 85652; 86140; 87040; 87070; 87077; 87186; 87205; 93005; 96365; 99285

== ENCOUNTER → 2020-08-25 | Outpatient (CLI) | payer MEDICARE | END | disposition home or self-care (01) | CPT/HCPCS: 71250 ==

== ENCOUNTER → 2020-09-09 | Outpatient (CLI) | payer MEDICARE ==
[2020-09-09 12:05] LABS: Basophils % (A) 1 %; Eosinophils # (A) 0.1 k/uL (0-0.7); Eosinophils % (A) 2 %; HGB 14.6 gm/dL (13.0-17.5); Lymphocytes # (A) 1.2 k/uL (1.0-4.8); Lymphocytes % (A) 26 %; MCH 33.7 pg (25.0-35.0); MCV 99.2 fL (80.0-100.0); Monocytes # (A) 0.6 k/uL (0-1.0); Monocytes % (A) 11 %; Neutrophils # (A) 2.8 k/uL (1.3-7.7); Neutrophils % (A) 57 %; Platelet Count 174 k/uL (150-450); RBC 4.33 m/uL (4.30-5.90); RDW 12.9 % (11.5-15.5); WBC 4.9 k/uL (3.8-10.6)
[2020-09-09 12:14] LABS: Potassium 4.5 mmol/L (3.5-5.1)
[2020-09-09 12:28] LABS: Partial Thromboplastin Time 25.4 sec (22.0-30.0); Prothrombin Time 10.4 sec (9.0-12.0)
== END | disposition home or self-care (01) ==
LOC: LABPAT 10:35
PROVIDERS: ATTEND Surgery
DX: Z01.818 Encounter for other preprocedural examination (principal); T81.32XA Disruption of internal operation (surgical) wound, not elsewhere classified, initial encounter; I25.10 Atherosclerotic heart disease of native coronary artery without angina pectoris; I45.10 Unspecified right bundle-branch block; R94.31 Abnormal electrocardiogram [ECG] [EKG]; Y69 Unspecified misadventure during surgical and medical care
CPT/HCPCS: 80051; 82565; 82947; 84520; 85025; 85610; 85730; 93005

== ENCOUNTER 2020-09-10 12:28 | Day surgery (SDC) | payer MEDICARE ==
[2020-09-09 09:26] VITALS: BMI 26.6
[~2020-09-10 12:28] MED LIST changes: +LIDOCAINE 1% (10MG/ML) FOR IV START INTRADERMA PRN
[2020-09-10 13:05] VITALS: RESP 16
[2020-09-10] MEDS ORDERED: ONDANSETRON 4 MG/2 ML VIAL IVP ONE (13:10)
[2020-09-10] MEDS ORDERED: ONDANSETRON 4 MG/2 ML VIAL ONE (13:11)
[2020-09-10] MEDS ORDERED: fentaNYL (PF) 50 MCG/ML 2 ML AMP ONE (14:17)
[2020-09-10] MEDS ORDERED: SUCCINYLCHOLINE CHLORIDE 100 MG/5 ML SYR IV ONE (14:17)
[2020-09-10] MEDS ORDERED: LIDOCAINE 1% INJ 10MG/ML (20 ML MDV) ONE (14:17)
[2020-09-10] MEDS ORDERED: PROPOFOL 10 MG/ML 20 ML VIAL IV ONE (14:17)
[2020-09-10] MEDS ORDERED: ePHEDrine SULFATE/0.9% NACL/PF 50 MG/5 ML SYRINGE IV ONE (14:17)
[2020-09-10 15:36] VITALS: TEMP 97.4
[2020-09-10 16:07] VITALS: PULSE 66
[2020-09-10 16:27] VITALS: BP 163/90
--- NOTE | 2020-09-10 20:11 | OP ---
OPERATIVE REPORT DATE OF SURGERY: 09/10/2020. PREOP DIAGNOSIS: Chronic draining sinus of sternal wound. POSTOPERATIVE DIAGNOSIS: Chronic draining sinus of sternal wound. PROCEDURE: 1. Excision of draining sinus. 2. Removal of sternal wires. SURGEON: Neto Springer MD. IMAGING SYSTEM ADMINISTRATOR: None. ANESTHESIA: General. SPECIMENS: None. COMPLICATIONS: None. INDICATION: The patient is an 85-year-old male who underwent coronary bypass surgery in April of 2018. His postoperative course was unremarkable. However, he developed a chronic draining sinus involving the midportion of the sternal wound. There was never any evidence of infection. This was treated locally. However, it never fully resolved. In fact, he had a 2nd area which he states drained several weeks ago more superiorly, which was remote from his initial presenting sinus. Excision of draining sinus with removal of underlying sternal wires were recommended. The risks, benefits, and alternatives of procedure were discussed with the patient's . All of their questions were answered. Consent was obtained. FINDINGS: Both sinus tracts were excised in their entirety. There was no evidence of infection or pus. The sternal wires were at the base of both of the sinuses. PROCEDURE IN DETAIL: The patient was taken to the operating room and placed supine on the operating table. After the induction of anesthesia, he was prepped and draped in the usual sterile fashion. Upon initial inspection, there were 2 areas consistent with chronic draining sinuses remote from each other within the sternal wound. There were several cm of normal healthy tissue these 2 areas. For this reason, I elected to remove them separately and leave the remaining wires and skin intact. I began by addressing the inferior tract sinus. An elliptical incision was created to encompass the skin and sinus orifice. This was dissection was carried down using a scalpel followed by Bovie cautery followed by electrocautery. The sinus tract was excised in its entirety. There was no surrounding erythema, drainage, pus, or foul smelling odor to suggest infection. There was an Ethibond stitch noted at the base of the sinus tract along with a stainless steel wire. The stitch was removed as was the single sternal wire. The wound both superior inferior to this area was well incorporated and was therefore left intact. Attention was then turned to the superior sinus. This too was excised using elliptical incision followed by electrocautery. Sinus tract was excised in its entirety. A sternal wire was noted at its base. Sternal wire was cut and removed. The surrounding tissue here was also incorporated and was therefore left intact. Both open wounds were then copiously irrigated with saline solution. Hemostasis was assured. Both wounds were closed in layers. Sterile dressings were applied. The patient appeared to tolerate procedure well. No immediate complications. He was extubated at the completion of the case, returned to recovery in stable condition. MMODL / MASOUDN: [id number] /
== END 2020-09-10 16:49 | disposition home or self-care (01) ==
LOC: OR 12:28
PROVIDERS: ATTEND Surgery
DX: T81.89XA Other complications of procedures, not elsewhere classified, initial encounter (principal); I25.10 Atherosclerotic heart disease of native coronary artery without angina pectoris; I10 Essential (primary) hypertension; K21.9 Gastro-esophageal reflux disease without esophagitis; I73.9 Peripheral vascular disease, unspecified; I65.29 Occlusion and stenosis of unspecified carotid artery; Z95.1 Presence of aortocoronary bypass graft; Z86.73 Personal history of transient ischemic attack (TIA), and cerebral infarction without residual deficits
CPT/HCPCS: 21620; 20680; 86900; 86901; 86850; J0690; J2405; J2001; J3010; J0330; J2704

== ENCOUNTER → 2021-10-28 | Outpatient (CLI) | payer MEDICARE ==
[2021-10-28 15:43] LABS: Partial Thromboplastin Time 26.2 sec (22.0-30.0); Prothrombin Time 10.9 sec (9.0-12.0)
[2021-10-28 18:37] LABS: HCT 44.6 % (39.6-50.0); HGB 15.1 g/dL (13.0-17.0); MCH 31.2 pg (27.0-32.0); MCHC 33.9 g/dL (32.0-37.0); MCV 92.1 fL (80.0-97.0); Mean Platelet Volume 10.5 fL (9.5-12.2); NRBC Per 100 WBC 0 /100 WBCS (0.0-0.0); Platelet Count 237 X 10*3/uL (140-440); RBC 4.84 X 10*6/uL (4.40-5.60); RDW 13.2 % (11.5-14.5); WBC 8.09 X 10*3/uL (4.50-10.00)
[2021-10-28 21:32] LABS: Appearance,Urine Clear (Clear); Bilirubin,Urine Negative (Negative); Blood,Urine Negative (Negative); Color,Urine Yellow (Yellow); Ketones,Urine Negative (Negative); Nitrite,Urine Negative (Negative); PH, Urine 5.5 (5.0-8.0); Urobilinogen,Urine 0.2 (0.2,1.0)
[2021-10-28 23:57] LABS: African American GFR (CKD) 90.6 (60.0-200.0); Albumin 4.6 g/dL (3.8-4.9); Albumin/Globulin Ratio 1.92 (1.60-3.17); Anion Gap 14.2 mmol/L (10.00-18.00); BUN/Creat Ratio 16.89 Ratio (12.00-20.00); Blood Urea Nitrogen 15.2 mg/dL (9.0-27.0); Calcium 9.4 mg/dL (8.7-10.3); Carbon Dioxide 20.8 mmol/L (20.0-27.5); Globulin 2.4 g/dL (1.6-3.3); Non-African American GFR(CKD) 78.2 (60.0-200.0); Potassium 4.2 mmol/L (3.5-5.5); Total Bilirubin 0.7 mg/dL (0.30-1.20)
== END | disposition home or self-care (01) ==
LOC: LABPAT 13:54
PROVIDERS: ATTEND Orthopaedic Surgery Sports Medicine
DX: Z01.818 Encounter for other preprocedural examination (principal); I45.4 Nonspecific intraventricular block; R94.31 Abnormal electrocardiogram [ECG] [EKG]
CPT/HCPCS: 80053; 81003; 85027; 85610; 85730; 87070; 93005

== ENCOUNTER 2021-11-26 05:33 | Day surgery (SDC) | payer MEDICARE ==
[~2021-11-26 05:33] MED LIST changes: +ACETAMINOPHEN TAB 500 MG TAB PO PRN; +GABAPENTIN 300 MG CAP PO PRN; -LACTATED RINGERS 1,000 ML IV SCH; -LIDOCAINE 1% (10MG/ML) FOR IV START INTRADERMA PRN; +MELOXICAM 7.5 MG TAB PO PRN; +ONDANSETRON 4 MG/2 ML VIAL IVP PRN; +TRANEXAMIC ACID IN NACL,ISO-OS 1,000 MG in SALINE 1 100ML.BAG IVPB PRN
[2021-11-26] MEDS ORDERED: ONDANSETRON 4 MG/2 ML VIAL IVP ONE (05:46)
[2021-11-26] MEDS ORDERED: HYDROmorphone 0.5 MG/0.5 ML SYRINGE IVP PRN ×4 (05:46→09:13)
[2021-11-26] MEDS: LACTATED RINGERS 1,000 ML IV SCH ×3 (06:19→20:27)
[2021-11-26] MEDS ORDERED: MIDAZOLAM 2 MG/2 ML VIAL IVP ONE (06:45)
[2021-11-26] MEDS ORDERED: ROPIVACAINE 5 MG/ML 30 ML VIAL ONE (07:03)
[2021-11-26] MEDS ORDERED: MIDAZOLAM 2 MG/2 ML VIAL ONE (07:03)
[2021-11-26] MEDS ORDERED: TRANEXAMIC ACID IN NACL,ISO-OS 1,000 MG/100 ML BAG ONE (07:03)
[2021-11-26] MEDS ORDERED: fentaNYL (PF) 50 MCG/ML 2 ML AMP ONE (07:03)
[2021-11-26] MEDS ORDERED: PROPOFOL 10 MG/ML 20 ML VIAL IV ONE (07:03)
[2021-11-26] MEDS ORDERED: ceFAZolin 3,000 MG in SODIUM CHLORIDE 0.9% IRRIGATIO 3,000 ML IRRIGATION ONE (07:40)
[2021-11-26] MEDS ORDERED: NALOXONE 0.4 MG/ML 1 ML VIAL IV PRN (09:13)
[2021-11-26] MEDS ORDERED: bisacodyL 10 MG SUPP RECTAL PRN (09:13)
[2021-11-26] MEDS ORDERED: ACETAMINOPHEN TAB 325 MG TAB PO PRN (09:13)
[2021-11-26] MEDS ORDERED: MAGNESIUM HYDROXIDE 2,400 MG/10 ML CUP PO PRN (09:13)
[2021-11-26] MEDS ORDERED: ONDANSETRON 4 MG/2 ML VIAL IVP PRN (09:13)
[2021-11-26] MEDS ORDERED: NA PHOS,M-B/NA PHOS,DI-BA 133 ML ENEMA RECTAL PRN (09:13)
[2021-11-26] MEDS ORDERED: traMADol 50 MG TAB PO PRN (09:13)
[2021-11-26] MEDS ORDERED: HYDROcodone/APAP 7.5-325MG 1 EACH TAB PO PRN ×2 (09:17)
[2021-11-26] MEDS ORDERED: ROPIVACAINE 0.2%-NS ON-Q PUMP 2 MG/ML EACH MISCELLANE ONE (09:30)
[2021-11-26] MEDS ORDERED: LACTATED RINGERS 1,000 ML IV ONE ×2 (09:54)
[2021-11-26] MEDS ORDERED: ROPIVACAINE 0.2%-NS ON-Q PUMP 1,090 MG, EMPTY PAIN BALL 1 EACH MISCELLANE PRN (11:30)
--- NOTE | 2021-11-26 11:37 | P.ANPRN ---
Procedure Note - Anesthesia - Nerve Block Performed Right Adductor Canal Infusion Time Out Performed: Yes (0643) Date of Procedure: 11/26/21 Location of Patient: PreOp Indication: Acute Post-Operative Pain, Dx/Pain Location (Right knee), Requested by Surgeon Specifically requested for management of pain by Dr.: Roberto Valenzuela Sedation Type: Sedate with meaningful contact maintained Preparation: Sterile Prep, Sterile Dressing Position: Supine Catheter: Indwelling Needle Types: Pajunk Needle Gauge: 18 Ultrasound used to visualize needle placement: Yes Ultrasound used to observe medication spread: Yes Injectate: 0.5% Ropivacaine (see comment for volume) (15 cc) Blood Aspirated: No Pain Paresthesia on Injection Noted: No Resistance on Injection: Normal Image Stored and Saved: Yes Events: Uneventful and Well Tolerated Right iPack Single Time Out Performed: Yes Date of Procedure: 11/26/21 Location of Patient: PreOp Indication: Acute Post-Operative Pain, Dx/Pain Location (Right knee) Specifically requested for management of pain by Dr.: Roberto Valenzuela Sedation Type: Sedate with meaningful contact maintained Preparation: Sterile Prep Position: Left Lateral Catheter: None Needle Types: Pajunk Needle Gauge: 21 Ultrasound used to visualize needle placement: Yes Ultrasound used to observe medication spread: Yes Injectate: 0.5% Ropivacaine (see comment for volume) (15 cc) Blood Aspirated: No Pain Paresthesia on Injection Noted: No Resistance on Injection: Normal
--- NOTE | 2021-11-26 13:44 | P.CON ---
Consult Note - . Consult date: 11/26/21 Assessment/Plan:: History of present illness; patient is a 86-year-old gentleman with past medical history significant for coronary artery disease status post CABG, osteoarthritis who presented to the hospital for elective right total knee arthroplasty. Patient was seen by orthopedic surgery in outpatient setting for his continued right knee pain. Patient noted that he did not have much benefit with corticosteroid injection given in December 2020. Patient stated his pain was at 6/10 and continued to have locking/catching and giving away feeling. Orthopedic discussed with patient his treatment options and decided that patient will undergo right total knee arthroplasty. Patient underwent the procedure today and medicine team was consulted postoperatively for medical management. REVIEW OF SYSTEMS: CONSTITUTIONAL: No fever, no malaise, no fatigue. HEENT: No recent visual problems or hearing problems. Denied any sore throat. CARDIOVASCULAR: No chest pain, orthopnea, PND, no palpitations, no syncope. PULMONARY: No shortness of breath, no cough, no hemoptysis. GASTROINTESTINAL: No diarrhea, no nausea, no vomiting, no abdominal pain. NEUROLOGICAL: No headaches, no weakness, no numbness. HEMATOLOGICAL: Denies any bleeding or petechiae. GENITOURINARY: Denies any burning micturition, frequency, or urgency. MUSCULOSKELETAL/RHEUMATOLOGICAL: Right knee pain ENDOCRINE: Denies any polyuria or polydipsia. The rest of the 14-point review of systems is negative. PHYSICAL EXAMINATION: GENERAL: The patient is alert and oriented x3, not in any acute distress. Well developed, well nourished. HEENT: Pupils are round and equally reacting to light. EOMI. No scleral icterus. No conjunctival pallor. Normocephalic, atraumatic. No pharyngeal erythema. No thyromegaly. CARDIOVASCULAR: S1 and S2 present. No murmurs, rubs, or gallops. PULMONARY: Chest is clear to auscultation, no wheezing or crackles. ABDOMEN: Soft, nontender, nondistended, normoactive bowel sounds. No palpable organomegaly. MUSCULOSKELETAL: Right knee bandaged seen NEUROLOGICAL: Gross neurological examination did not reveal any focal deficits. SKIN: No rashes. Assessment and plan Right knee osteoarthritis status post right total knee arthroplasty Coronary artery disease status post CABG Hypertension Hyperlipidemia Plan; Continue postop management per orthopedic Continue DVT prophylaxis per orthopedic Resume home meds PT and OT evaluation DVT prophylaxis:
--- NOTE | 2021-11-26 14:57 | OP ---
OPERATIVE REPORT PREOPERATIVE DIAGNOSIS: Right knee osteoarthrosis. POSTOPERATIVE DIAGNOSIS: Right knee osteoarthrosis. PROCEDURE PERFORMED: Right total knee arthroplasty. ANESTHESIA: Spinal, sedation. ESTIMATED BLOOD LOSS: 100 mL. TOURNIQUET TIME: 46 minutes at 250 mmHg. COMPLICATIONS: None apparent. DRAINS: None. DISPOSITION: Postanesthesia care unit. INDICATIONS FOR PROCEDURE: Tono is a very pleasant 86-year-old male with longstanding history of right knee pain. History and physical examination are consistent with advanced right knee osteoarthrosis. He has been through significant nonoperative management up to this point. Further treatment options were discussed, and he has decided to go forward with the right total knee arthroplasty. Risks of procedure were discussed with him in detail. These risks included, but were not limited to risk of infection, nerve damage, bleeding, pain, and a small risk of deep vein thrombosis which could lead to fatal pulmonary embolism. There is also risk of loosening of the implant which could require revision operation. The patient understands these risks. All of his questions were answered to his satisfaction. An appropriate informed consent was obtained. DESCRIPTION OF PROCEDURE: The patient was identified in the preoperative holding area. Surgical site was marked by both the patient and myself. He was given 2 g of Ancef IV for prophylactic purposes. He was then transferred to the operative suite. He was placed supine on the operating room table. Spinal anesthetic was then administered and dosed per the Anesthesia Department without apparent complication. Examination under anesthesia was then performed. The patient was 2 to 3 degrees shy of full extension. He had 100 degrees of flexion. Medial collateral ligament, lateral collateral ligament, and posterior cruciate ligament were stable. Tourniquet was then placed high on the right upper thigh and well-padded in preparation for surgery. The patient's right lower extremity was then prepped and draped in usual sterile fashion. Standard surgical pause was undertaken to ensure that we were operating the correct site and that appropriate preoperative antibiotics had been given. All staff in the room were in agreement, and we proceeded. The outlines of the patella were marked with a surgical pen. A planned 12 cm vertical incision centered over the patella was marked with a surgical pen. Leg was then exsanguinated with an Esmarch dressing. The knee was then flexed, and the tourniquet was inflated to 250 mmHg. The total tourniquet time for the procedure was 46 minutes. Incision was then made with a 10-blade scalpel. Dissection was carried down sharply overlying the fascia. Great care was taken to minimize the skin flaps. The knee was then exposed using a standard medial parapatellar approach. A small cuff of quadriceps tendon was then left for suturing. He was in a bit of varus preoperatively. A standard medial release was then made. Superficial medial collateral ligament was dissected off the bone around to the posterior aspect of the proximal tibia. The medial meniscus was then excised as well. The lateral meniscus was also released anteriorly. The leg was then externally rotated. The patella was everted. The knee was flexed. The retractors were then placed to protect the collateral ligaments. I then proceeded to remove the infrapatellar fat pad. This was excised sharply tangentially with fibers of the patellar tendon. I then proceeded to remove the peripheral osteophytes. This was done with a rongeur. I then proceeded with the distal femoral resection. He did have near full extension. A planned 9 mm resection was then done. The femoral canal was then entered in the midline of the femur approximately 10 mm anterior to the origin of the posterior cruciate ligament. The mamie was then advanced down to the center of the femur and placed intramedullary. Based on the preoperative radiographs, the angle between the anatomic and mechanical axis of the femur was approximately 4 to 5 degrees. The valgus angle of the distal femoral cutting guide was then set at 4 degrees for the right knee. The distal femoral cutting guide was then advanced over the intramedullary mamie. This was seated firmly against the femur. I then as mentioned planned to take 9 mm off the distal femur. The cutting block was then secured onto the femur with pins. The jig was then removed. The distal femoral cuts were made through the slot of the block. The pins were then removed. The distal femoral cutting block was removed. The accuracy of the distal femoral cuts was checked with 2 flat bars. I then proceeded with femoral sizing. Posterior referencing sizing guide was held firmly against the resected distal surface of the femur. The posterior condyles were resting on the posterior plane of the guide. The sizing stylus was then placed onto the anterior femur. The size was measured as a size 10. I then assessed for femoral rotation. The plan was for 3 degrees of external rotation. Three degrees of external rotation was placed onto the jig. These holes were then marked. I then confirmed the rotation by 3 separate methods. This was done using epicondylar axis as well as Humberto's line and posterior referencing. It was deemed that the external rotation was proper. I then went forward and placed the femoral cutting block. This was placed over the previously-placed pin holes. The Alvaro wing was then placed onto the anterior slots to ensure that we would not notch the anterior femur with the anterior femoral cut. I then proceeded with the anterior femoral cut. This was flush with the anterior cortex of the femur. The posterior cuts were made followed by the anterior chamfer cut, then the posterior chamfer cut. The cutting block was then removed. Throughout the resection, the collateral ligaments were protected with retractors. I then placed a trial size 10 femur. It fit very nice medial-lateral and fit flush with the distal end of the femur. The drill hole was then made. I then proceeded with the tibial cut. I planned for cruciate-retaining knee. The guide was placed and set for varus and valgus and for slope. The height was set for approximate 2 mm resection from the medial tibial plateau, which was the lower side. I was happy with the alignment and the amount of resection. The cutting block was then pinned to the proximal tibia. The alignment mamie was removed, and the proximal tibia was resected with a reciprocating saw. Again, this was done with retractors protecting the collateral ligaments as well as the posterior cruciate ligament. I then proceeded to evaluate the flexion and extension gaps. A 10 mm block was then placed. The flexion and extension gaps were equal. I then proceeded with resection of the posterior osteophytes. He had very minimal posterior osteophytes. This was done using a curved osteotome. This resected the posterior osteophytes, and posterior capsular stripping was done off the posterior aspect of the femur at this time. The osteophytes were then removed. I then proceeded with resection of the patella. The thickness of the patella was measured using the caliper. The thickness was 22 mm. The thickness of the anticipated patellar dome was taken into account. Resection was then performed and confirmed to be equal in 4 quadrants using a caliper. Approximately 14 mm of bone remained after resection. A 32 x 8.5 mm standard patellar trial was then placed. The holes were drilled, and the trial was then placed. I then proceeded with sizing the tibial plate. The size F tibial plate fit very nicely. I then placed the trial femur, the tibial tray, and the patellar button. A 10 mm trial tibial insert was also placed. The components fit very nicely. He had full extension and flexion. The extension and flexion gaps were equal and stable to both varus and valgus stress. The patella tracked appropriately. The tibial tray rotation was then marked with a Bovie. This was externally rotated properly. I then proceeded with tibial preparation. I first drilled the femoral holes and removed the femoral component. The tibial tray was then set for proper external rotation as well as medial and lateral placement onto the tibia. It was then pinned into place. I then proceeded with punching the keel. I then decided to proceed with cementing of all of our components. The knee was thoroughly irrigated with sterile saline solution via pulsed lavage. The lateral genicular artery was identified and cauterized. All blood was removed from the bone of the tibia, femur, and patella with pulsed lavage. I then proceeded with cementing. Two packs of antibiotic bone cement prepared on the back table by surgical services tech. I then proceeded with cementing of the tibia first. The cement was impacted into the keel as well as deeply seated into the bone. A second coat of cement was then placed. The tibia was then impacted into place. Excess cement was removed with [place]'s and Joker's. I then proceeded with cementing of the femoral component. The femoral component was also cemented using standard technique. Excess cement was removed. A 10 mm trial insert was then placed into the knee. It was brought into full extension with a constant axial load placed until the cement had hardened. The patellar component was then cemented. This was held firmly with a compressive device until the cement had dried. When the cement had dried, the knee was taken out of extension. All excess cement was removed from around the prosthesis. I then trialed the knee with a 10 mm insert. Flexion and extension gaps were appropriate. The knee was stable. It came into full extension. I decided to go forward with a 10 mm Medial Congruent cross-linked cruciate- retaining tibial insert. Polyethylene was then placed onto the tibial tray and locked into place. The knee was then reduced. The knee was again further irrigated with sterile saline solution with antibiotic added. The tourniquet was then deflated. Total tourniquet time for the procedure was 46 minutes at 250 mmHg. Final components were Delano Persona size 10 cruciate-retaining femoral component, size F tibial tray, a 10 mm Medial Congruent cruciate-retaining polyethylene insert, and a 32 x 8.5 mm patella. I then proceeded with closure. Again, the knee was thoroughly irrigated. The quadriceps tendon and the medial retinaculum were reapproximated with #2 Ethibond suture. The extensor mechanism was then closed with a running #2 Quill suture. Subcutaneous tissues were closed with 2-0 Vicryl interrupted suture. The skin was closed with a running 3-0 Quill suture. Dermabond was applied to the incision. Sterile compressive dressings were then applied. All sponge and needle counts were deemed correct prior to closure. The patient tolerated the procedure without apparent complication. He was transferred to recovery room in stable condition. MMODL / IJN: [id number] /
--- NOTE | 2021-11-26 15:35 | XR ---
EXAMINATION TYPE: XR knee limited RT DATE OF EXAM: 11/26/2021 CLINICAL HISTORY: Right knee pain and arthritis status post total knee replacement. TECHNIQUE: Portable AP and crosstable lateral views of the right knee are obtained immediately posto peratively. COMPARISON: None FINDINGS: Metallic hardware from total right knee arthroplasty is seen and appears satisfactory in a lignment and position. There is evidence of recent surgery with diffuse subcutaneous gas and soft ti ssue swelling noted. [place] Osseous structures are somewhat demineralized. IMPRESSION: METALLIC HARDWARE FROM TOTAL RIGHT KNEE ARTHROPLASTY IS SATISFACTORY IN ALIGNMENT.
[2021-11-26] MEDS: ASPIRIN 81 MG PO SCH (20:32)
[2021-11-26] MEDS ORDERED: SENNOSIDES-DOCUSATE SODIUM 1 EACH TAB PO SCH (21:00)
[2021-11-27] MEDS: LACTATED RINGERS 1,000 ML IV SCH ×3 (06:31→07:47)
--- NOTE | 2021-11-27 07:19 | P.PN ---
Progress Note - Text Progress Note Date: 11/27/21 Postoperative day # 1 status post total knee arthroplast, and adductor canal catheter placed for postoperative analgesia, currently at ropivacaine 0.2% 8 mL per hour and continuous infusion, visual analogue scale is 3/10, patient using oral pain medication for breakthrough pain. Assessment and plan= Acute postoperative pain, adductor canal catheter for pain control, pain is well controlled we'll continue the same management.
[2021-11-27] MEDS: ASPIRIN 81 MG PO SCH (07:47)
[2021-11-27 08:40] VITALS: BP 129/75; PULSE 86; RESP 16; TEMP 99.5
[2021-11-27 08:51] LABS: Basophils # (A) 0.04 X 10*3/uL (0.00-0.10); Basophils % (A) 0.5 %; Eosinophils # (A) 0.14 X 10*3/uL (0.04-0.35); Eosinophils % (A) 1.6 %; HCT 34.5 % (39.6-50.0); HGB 11.3 g/dL (13.0-17.0); Immature Grans, Automated 0.2 %; Lymphocytes # (A) 1.63 X 10*3/uL (0.90-5.00); Lymphocytes % (A) 18.6 %; MCH 32.1 pg (27.0-32.0); MCHC 32.8 g/dL (32.0-37.0); Mean Platelet Volume 10.8 fL (9.5-12.2); Monocytes # (A) 1.24 X 10*3/uL (0.20-1.00); Monocytes % (A) 14.1 %; NRBC Per 100 WBC 0 /100 WBCS (0.0-0.0); Neutrophils # (A) 5.71 X 10*3/uL (1.80-7.70); Platelet Count 203 X 10*3/uL (140-440); RBC 3.52 X 10*6/uL (4.40-5.60); RDW 13.7 % (11.5-14.5); WBC 8.78 X 10*3/uL (4.50-10.00)
[2021-11-27] MEDS ORDERED: MULTIVITAMINS, THERA 1 EACH TAB PO SCH (12:00)
[2021-11-27] MEDS ORDERED: ATORVASTATIN 40 MG TAB PO SCH (13:00)
[2021-11-27] MEDS ORDERED: LOSARTAN 25 MG TAB PO SCH (13:00)
--- NOTE | 2021-11-27 13:06 | P.DS ---
Providers Expected date of discharge: 11/27/21 Attending physician: Roberto Valenzuela Consults: 11/26/21 09:13 Consult Physician Routine Consulting Provider: Meli Vargas Consult Reason/Comments: post op medical management Do you want consulting provider notified?: Yes Primary care physician: Isac Nuñez - Discharge Diagnosis(es) (1) Osteoarthritis of right knee Patient was admitted to the OR on 11/26/21 to undergo a right total knee arthroplasty. He had failed conservative measures as an outpatient and desired to proceed with elective surgery after given informed consent. He underwent the above procedure which he tolerated well without complication. Postoperative hospital course has remained without complication. On day of discharge he is afebrile, vital signs stable, labs within acceptable ranges, tolerating by mouth meds and diet, voiding without difficulty, positive flatus, denies abdominal pain or calf pain, pain is controlled on oral pain medication and has no new complaints. Wound is benign, neurovascular status is intact, calf is soft and nontender, abdomen soft and nontender. Review of systems is negative for numbness, tingling, fever, chills, chest pain, shortness of breath, nausea, vomiting, dizziness, headaches, slurred speech or other. Current Visit: Yes Status: Acute Priority: Medium Procedures: Right TKA Patient Condition at Discharge: Good Plan - Discharge Summary Discharge Rx Participant: No New Discharge Prescriptions: New HYDROcodone/APAP 7.5-325MG [[place] 7.5-325] 1 - 2 each PO Q6HR PRN #42 tab PRN Reason: Pain Aspirin [Adult Low Dose Aspirin EC] 81 mg PO BID #60 tab Docusate [Colace] 100 mg PO BID #60 capsule No Action Losartan [Cozaar] 25 mg PO DAILY@1300 Atorvastatin [Lipitor] 40 mg PO DAILY@1300 Aspirin [Adult Low Dose Aspirin EC] 81 mg PO DAILY@1300 Discharge Medication List Aspirin [Adult Low Dose Aspirin EC] 81 mg PO DAILY@129909/09/20 [History] Atorvastatin [Lipitor] 40 mg PO DAILY@129909/09/20 [History] Losartan [Cozaar] 25 mg PO DAILY@129909/09/20 [History] Aspirin [Adult Low Dose Aspirin EC] 81 mg PO BID #60 tab 11/27/21 [Rx] Docusate [Colace] 100 mg PO BID #60 capsule 11/27/21 [Rx] HYDROcodone/APAP 7.5-325MG [[place] 7.5-325] 1 - 2 each PO Q6HR PRN #42 tab 11/27/21 [Rx] Follow up Appointment(s)/Referral(s): [facility], [NON-STAFF] - 1-2 Days ([facility] will call you to schedule your in home physical therapy appointments. ) Roberto Valenzuela MD [STAFF PHYSICIAN] - 12/08/21 9:50 am Patient Instructions/Handouts: *Surgery [facility] - On-Q Pain Pump Discharge Instructions, Knee Replacement (DC) Activity/Diet/Wound Care/Special Instructions: Weight bear as tolerated May shower after 3 days if no bleeding Keep wound clean and dry Take meds as directed F/U with Dr. Valenzuela in office Discharge Disposition: HOME WITH HOME HEALTH SERVICES
--- NOTE | 2021-11-27 13:24 | P.PN ---
Subjective Progress Note Date: 11/27/21 Principal diagnosis: patient is a 86-year-old gentleman with past medical history significant for coronary artery disease status post CABG, osteoarthritis who presented to the hospital for elective right total knee arthroplasty. Patient was seen by orthopedic surgery in outpatient setting for his continued right knee pain. Patient noted that he did not have much benefit with corticosteroid injection given in December 2020. Patient stated his pain was at 6/10 and continued to have locking/catching and giving away feeling. Orthopedic discussed with patient his treatment options and decided that patient will undergo right total knee arthroplasty. Patient underwent the procedure today and medicine team was consulted postoperatively for medical management. 11/27. Patient seen and examined. States he feels much better. Came to go home today. Vital signs stable. REVIEW OF SYSTEMS: CONSTITUTIONAL: No fever, no malaise, no fatigue. HEENT: No recent visual problems or hearing problems. Denied any sore throat. CARDIOVASCULAR: No chest pain, orthopnea, PND, no palpitations, no syncope. PULMONARY: No shortness of breath, no cough, no hemoptysis. PHYSICAL EXAMINATION: GENERAL: The patient is alert and oriented x3, not in any acute distress. Well developed, well nourished. HEENT: Pupils are round and equally reacting to light. EOMI. No scleral icterus. No conjunctival pallor. Normocephalic, atraumatic. No pharyngeal erythema. No th yromegaly. CARDIOVASCULAR: S1 and S2 present. No murmurs, rubs, or gallops. PULMONARY: Chest is clear to auscultation, no wheezing or crackles. ABDOMEN: Soft, nontender, nondistended, normoactive bowel sounds. No palpable organomegaly. MUSCULOSKELETAL: No joint swelling or deformity. Right knee surgical incision seen EXTREMITIES: No cyanosis, clubbing, or pedal edema. NEUROLOGICAL: Gross neurological examination did not reveal any focal deficits. SKIN: No rashes. Assessment and plan Right knee osteoarthritis status post right total knee arthroplasty Coronary artery disease status post CABG Hypertension Hyperlipidemia Plan; Continue postop management per orthopedic Continue DVT prophylaxis per orthopedic Continue home meds Objective - Vital Signs Vital signs: Vital Signs Temp 99.5 F 11/27/21 08:00 Pulse 86 11/27/21 08:00 Resp 16 11/27/21 08:00 BP 129/75 11/27/21 08:00 Pulse Ox 94 L 11/27/21 08:00 FiO2 Intake & Output 11/26/21 11/27/21 11/27/21 18:59 06:59 18:59 Intake Total 1051 Output Total 100 Balance 951 Weight 79.9 kg Intake: IV 1051 Output: Estimated Blood Loss 100 Other: Voiding Method Toilet # Voids 0 1 - Labs CBC & Chem 7: 11/27/21 06:09 Labs: Abnormal Lab Results - Last 24 Hours (Table) 11/27/21 Range/Units 06:09 RBC 3.52 L (4.40-5.60) X 10*6/uL Hgb 11.3 L (13.0-17.0) g/dL Hct 34.5 L (39.6-50.0) % MCV 98.0 H (80.0-97.0) fL MCH 32.1 H (27.0-32.0) pg Monocytes # 1.24 H (0.20-1.00) X 10*3/uL
== END 2021-11-27 14:09 | disposition home health service (06) ==
LOC: OR 05:33 → 4SSUR 09:02 → OR 11-27 14:09
PROVIDERS: ATTEND Orthopaedic Surgery Sports Medicine
DX: M17.11 Unilateral primary osteoarthritis, right knee (principal); G89.18 Other acute postprocedural pain; I11.9 Hypertensive heart disease without heart failure; E78.5 Hyperlipidemia, unspecified; Z97.3 Presence of spectacles and contact lenses; Z88.5 Allergy status to narcotic agent; Z96.652 Presence of left artificial knee joint; Z86.59 Personal history of other mental and behavioral disorders
CPT/HCPCS: 97161; 64999; 64448; 76942; 85025; 88300; 73560; 27447; C1776; C1713; J2250; J0690 ×2; J2405; J3010; J2795 ×2; J2704

== ENCOUNTER → 2022-01-25 | Outpatient (CLI) | payer MEDICARE ==
[2022-01-25 12:51] LABS: Partial Thromboplastin Time 26.1 sec (22.0-30.0); Prothrombin Time 10.6 sec (9.0-12.0)
[2022-01-25 18:48] LABS: African American GFR (CKD) 92.5 (60.0-200.0); Albumin 4.5 g/dL (3.8-4.9); Albumin/Globulin Ratio 2.05 (1.60-3.17); Anion Gap 13.2 mmol/L (10.00-18.00); BUN/Creat Ratio 16.96 Ratio (12.00-20.00); Blood Urea Nitrogen 14.5 mg/dL (9.0-27.0); Calcium 9.2 mg/dL (8.7-10.3); Carbon Dioxide 21.3 mmol/L (20.0-27.5); Globulin 2.2 g/dL (1.6-3.3); Non-African American GFR(CKD) 79.8 (60.0-200.0); Potassium 4.3 mmol/L (3.5-5.5); Total Bilirubin 0.6 mg/dL (0.30-1.20); Total Protein 6.7 g/dL (6.2-8.2)
[2022-01-25 20:02] LABS: Appearance,Urine Clear (Clear); Bilirubin,Urine Negative (Negative); Blood,Urine Negative (Negative); Color,Urine Yellow (Yellow); Ketones,Urine Negative (Negative); Nitrite,Urine Negative (Negative); PH, Urine 5.5 (5.0-8.0); Specific Gravity,Urine 1.017 (1.001-1.030)
[2022-01-25 20:18] LABS: HCT 44.5 % (39.6-50.0); HGB 14.1 g/dL (13.0-17.0); MCH 31.2 pg (27.0-32.0); MCHC 31.7 g/dL (32.0-37.0); MCV 98.5 fL (80.0-97.0); Mean Platelet Volume 10.6 fL (9.5-12.2); NRBC Per 100 WBC 0 /100 WBCS (0.0-0.0); Platelet Count 270 X 10*3/uL (140-440); RBC 4.52 X 10*6/uL (4.40-5.60); RDW 12.9 % (11.5-14.5)
== END | disposition home or self-care (01) ==
LOC: LABPAT 12:00
PROVIDERS: ATTEND Orthopaedic Surgery
DX: Z01.812 Encounter for preprocedural laboratory examination (principal)
CPT/HCPCS: 80053; 81003; 85027; 85610; 85730; 87070

== ENCOUNTER 2022-02-02 10:30 | Day surgery (SDC) | payer MEDICARE ==
[~2022-02-02 10:30] MED LIST changes: +ONDANSETRON 4 MG/2 ML VIAL IVP ONE; -ONDANSETRON 4 MG/2 ML VIAL IVP PRN; +fentaNYL (PF) 50 MCG/ML 2 ML AMP IV PRN
[2022-02-02] MEDS: LACTATED RINGERS 1,000 ML IV SCH (11:28)
[2022-02-02] MEDS ORDERED: DEXAMETHASONE SOD PHOSPHATE 4 MG/ML 1 ML VIAL IVP ONE (11:28)
[2022-02-02] MEDS ORDERED: PHENYLEPHRINE-0.9% NACL SYG 1,000 MCG/10 ML SYRINGE ONE (11:58)
[2022-02-02] MEDS ORDERED: TRANEXAMIC ACID IN NACL,ISO-OS 1,000 MG/100 ML BAG ONE (11:58)
[2022-02-02] MEDS ORDERED: MIDAZOLAM 2 MG/2 ML VIAL ONE (11:58)
[2022-02-02] MEDS ORDERED: fentaNYL (PF) 50 MCG/ML 2 ML AMP ONE (11:58)
[2022-02-02] MEDS ORDERED: PROPOFOL 10 MG/ML 20 ML VIAL IV ONE (11:58)
[2022-02-02] MEDS ORDERED: ceFAZolin 1,000 MG in SODIUM CHLORIDE 0.9% 1,000 ML IRRIGATION ONE (12:17)
[2022-02-02] MEDS ORDERED: ROPIVACAINE 5 MG/ML 30 ML VIAL MISCELLANE ONE ×2 (12:23→12:56)
--- NOTE | 2022-02-02 13:02 | P.OP ---
Date of Procedure: 02/02/22 Preoperative Diagnosis: Severe osteoarthritis right hip Postoperative Diagnosis: Severe Osteoarthritis right hip Procedure(s) Performed: Right total hip arthroplasty with a direct anterior approach Implants: [employer] Polarstem standard size 6 with a collar [employer] R3, 3 hole hemispherical acetabular shell, 54 mm [employer] Reflection 6.5 mm cancellus screw, 20 mm 2 [employer] R3, XLPE 20 acetabular liner [employer] Oxinium femoral head 36 m, +0 All components were press-fit. The articulation is Oxinium on polyethylene. Anesthesia: spinal Surgeon: Isac Medina Inspector Balance Truing #1: Debi Edwards Estimated Blood Loss (ml): 300 Pathology: other (Femoral head) Condition: stable Disposition: PACU Indications for Procedure: After failure of conservative treatment we discussed the surgical and nonsurgical treatment options at length. Patient wishes to proceed with a total hip arthroplasty with a direct anterior approach. Complications specific to this procedure were discussed at length, including but not limited to infection, leg length discrepancy, dislocation, nerve injury, and fracture. Covid-19 was also discussed at length with the patient, and they are aware of the current policies and procedures. The patient was given the option of delaying surgery, but they elect to proceed knowing these risks. Patient is aware of all these complications and informed consent was obtained Operative Findings: Operative findings are consistent with severe osteoarthritis the right hip Description of Procedure: Patient was seen and evaluated in the preoperative area and the consent was reviewed. The operative site was marked with a skin marker. The patient was then brought to the operating room and given preoperative antibiotics intravenously. 1 g of Tranexamic acid was also given intravenously. A spinal anesthetic was administered by the anesthesia department. The patient was then placed on the [place] table with the bony prominences well-padded. The hip area was then prepped with a ChloraPrep solution and draped in the usual sterile fashion. A universal timeout was then performed, which confirmed the patient's name, surgical site, ALLERGIES, and procedure being performed on the consent. Next the incision site was located at 1 cm distal and 2 cm lateral to the anterior superior iliac spine. The skin and subcutaneous tissues were sharply incised. Incision was carefully dissected down to the fascia overlying the tensor fascia radha muscle. This fascia was then incised in line with the incision. Care was taken to stay laterally in order to avoid injuring the lateral femoral cutaneous nerve. Next, using blunt finger dissection, the tensor fascia radha muscle was dissected off its investing fascia. The muscle was then carefully retracted laterally with a cobra retractor over the lateral neck of the femur. Next, the circumflex vessels were identified and cauterized using the AquaMantis device. The anterior hip capsule was then exposed. The capsule was then opened and an inverted T fashion. Cobra retractors were then placed intracapsularly. The retractors were maintained intracapsular throughout the procedure. The proximal femur was then visualized. Fluoroscopic x-rays were then taken in order to evaluate the preoperative leg lengths. A small amount of traction was placed on the leg. The femoral neck was then osteotomized at the appropriate level above the lesser trochanter. A small wedge of bone was then removed from the remaining femoral head. Next, using a corkscrew the femoral head was removed from the acetabulum. On gross visual inspection, the femoral head had complete loss of articular cartilage and multiple periarticular osteophytes. The femoral head was then measured. Attention was then turned to the acetabulum. The acetabulum was exposed and any remaining labrum was excised. Sequential reaming of the acetabulum was performed using fluoroscopic guidance until there was a good bed of bleeding cancellus bone. When the appropriate size was reached, a trial was then placed. The position and fit of the trial was checked with fluoroscopy. The trial was then removed. Then, using fluoroscopic guidance, the final implant was impacted at 20 of anteversion and 40 of abduction, and fully seated in the acetabulum. 2 screws were then placed in the acetabulum. Again fluoroscopy was used to check position of the screws. Next, the liner was then impacted, with a 20 elevated liner located in the anterior superior quadrant. Component locking was confirmed. Attention was then directed to the femur. With the aid of the [place] table, the femur was externally rotated to approximately 130, extended, and adducted under the opposite leg. A side hook was then placed under the proximal femur, and the side hook elevator was used to elevate the proximal femur while releasing the capsule. Retractors were then placed. A capsular release was performed, as well as a release of the conjoined tendon, which afforded excellent visualization of the proximal femur. Next, a box osteotome was used to lateralize the proximal femur. A carver hand was then used to locate the femoral canal. Sequential broaching was then performed with appropriate size which afforded excellent fixation in the proximal femur. A trial was then placed with appropriate head and neck, and the hip was gently reduced with the aid of the [place] table. Fluoroscopy was then used to check position of the components, as well as to evaluate the leg lengths and offset. The leg lengths and offset were measured as closely as possible to ensure stability of the hip. The hip was then gently dislocated and the trials were then removed. Final implants were then impacted and the hip was again reduced. Final fluoroscopic x-rays confirmed that the components were in anatomic position. The leg lengths and offset were measured and were found to coincide with the trial measurements. The hip was also taken through range of motion, and found to be stable. The hip was then copiously irrigated with antibiotic solution with pulsatile lavage. The hip was then irrigated with Irrisept solution. The soft tissues were then injected with a ropivacaine solution. A second dose of 1 g of Tranexamic acid was also given intravenously. The fascia was then closed with 2-0 strata fix suture. The subcutaneous tissue was closed with 3-0 Vicryl. The subcuticular tissue was closed with 3-0 strata fix suture. The skin was then closed with Exofin skin glue. After the glue and dried, and Optifoam silver impregnated dressing was applied. The patient was then transferred to the recovery room in stable condition. The paralegal assistant CHANDRIKA Ruggiero was required due to the complexity of surgery, and the need for skilled ophthalmic surgical assistant for positioning, draping, exposure, retraction, and closure of the wound.
[2022-02-02] MEDS ORDERED: LACTATED RINGERS 1,000 ML IV ONE (13:16)
--- NOTE | 2022-02-02 13:21 | XR ---
EXAMINATION TYPE: XR Hip Limited RT DATE OF EXAM: 02/02/2022 COMPARISON: NONE HISTORY: Postop TECHNIQUE: One view submitted. FINDINGS: There is postsurgical change in near anatomic alignment. There is soft tissue edema and emphysema. IMPRESSION: 1. Postoperative change. Appears in near-anatomic alignment.
--- NOTE | 2022-02-02 13:39 | FL ---
EXAMINATION TYPE: FL guidance operating room DATE OF EXAM: 02/02/2022 HISTORY: Fluoroscopy time 39 seconds of fluoroscopy provided. IMPRESSION: 1. Fluoroscopy time.
[2022-02-02] MEDS ORDERED: NALOXONE 0.4 MG/ML 1 ML VIAL IV PRN (13:40)
[2022-02-02] MEDS ORDERED: MAGNESIUM HYDROXIDE 2,400 MG/10 ML CUP PO PRN (13:40)
[2022-02-02] MEDS ORDERED: ONDANSETRON 4 MG/2 ML VIAL IVP PRN (13:40)
[2022-02-02] MEDS ORDERED: HYDROmorphone 0.5 MG/0.5 ML SYRINGE IVP PRN ×3 (13:40)
[2022-02-02] MEDS ORDERED: HYDROcodone/APAP 7.5-325MG 1 EACH TAB PO PRN ×2 (13:42)
[2022-02-02] MEDS: SODIUM CHLORIDE 0.9% 1,000 ML IV SCH (16:55)
--- NOTE | 2022-02-02 17:45 | P.CONS ---
History of Present Illness - Reason for Consult Consult date: 02/02/22 Medical management Requesting physician: Isac Medina - History of Present Illness History of Presenting Illness: Patient is a very pleasant 86-year-old male with a past medical history of CAD status post CABG x4, hypertension, hyperlipidemia, glaucoma, and osteoarthritis. He is currently admitted under orthopedic surgical team for elective right total hip arthroplasty secondary to severe osteoarthritis of right hip. We have been consulted for medical management throughout patient's hospitalization. Patient seen and fully evaluated upon arrival to the room from OR. He was sitting up in the chair at bedside eating dinner and appeared to be doing well. Patient reported total controlled postoperative pain at this time. Family visiting at bedside. Patient denies having any headache, lightheadedness, dizziness, chest pain, palpitations, shortness of breath, or experiencing any numbness/tingling/focal weakness in his extremities. Patient denies history of DVT or PE. He denies experiencing any postoperative nausea or vomiting. Patient tolerating oral intake at this time. He has not yet urinated during post-operative period. Review of systems: Pertinent positives and negatives as discussed in HPI, a complete review of systems was performed and all other systems are negative. Physical exam: Vital signs reviewed and stable. General: Nontoxic, no distress and appears stated age. Derm: Skin warm and dry, normal coloration for ethnicity. Head: Atraumatic, normocephalic and symmetric. Eyes: EOMs intact, no lid lag, and anicteric sclera Mouth: no lip lesions, mucus membranes moist Cardiovascular: regular rate and rhythm with normal S1S2, no murmur, positive posterior tibial pulses bilaterally, and cap refill < 2 seconds. Lungs: Respirations even, regular, and unlabored on room air. Lungs CTA bilaterally, no rhonchi, no rales, no wheezing, and no accessory muscle usage. Abdominal: soft, nontender to palpation, no guarding, no appreciable organomegaly Ext: ROM intact. No gross muscle atrophy, no edema, no contractures Neuro: Speech clear, face symmetrical and CN II-XII grossly intact with no noted focal neuro deficits Psych: Alert and oriented to person, place, time, and situation. Appropriate and pleasant affect. Assessment and Plan of Care: Status post right total hip arthroplasty Management per primary admitting orthopedic surgery team including DVT prophylaxis, pain management, weightbearing, and PT/OT. DVT prophylaxis currently with aspirin 325 mg twice daily Hypertension Hyperlipidemia History of CAD status post CABG x4 Monitor vital signs and continue daily home cardiac medication regimen with aspirin, atorvastatin, and losartan. Glaucoma Continue home timolol ophthalmologic drops. Thank you for allowing us to participate in the care of this pleasant patient. Do not hesitate to contact us with questions. Someone can be reached from the [facility] hospitalist group all hours of the day at [phone] or via [employer]. Past Medical History Past Medical History: Coronary Artery Disease (CAD), Hyperlipidemia, Hypertension, Osteoarthritis (OA) Additional Past Medical History / Comment(s): history of gastric ulcer. History of Any Multi-Drug Resistant Organisms: None Reported Year Discovered:: None MDRO Source:: None Past Surgical History: Appendectomy, Cholecystectomy, Hernia Repair, Joint Replacement, Tonsillectomy Additional Past Surgical History / Comment(s): left total knee ,hernia rt inguinal x2. COLONOSCOPY. 4 vessel CABG 05/12/2018. Right total knee 11/26/21 Past Anesthesia/Blood Transfusion Reactions: No Reported Reaction Smoking Status: Never smoker - Past Family History Mother Family Medical History: No Reported History Son(s) Family Medical History: Coronary Artery Disease (CAD), Myocardial Infarction ([place]) Additional Family Medical History / Comment(s): Had myocardial infarction 48 years old with stent placement Father Family Medical History: Cancer Additional Family Medical History / Comment(s): prostate cancer Medications and Allergies Home Medications Medication Instructions Recorded Confirmed Type Atorvastatin [Lipitor] 40 mg PO DAILY 09/09/20 01/28/22 History Losartan [Cozaar] 25 mg PO DAILY 09/09/20 01/28/22 History HYDROcodone/APAP 7.5-325MG [[place] 1 - 2 each PO Q6HR PRN #42 tab 11/27/21 01/28/22 Rx 7.5-325] Aspirin 325 mg PO DAILY 01/28/22 01/28/22 History Timolol 0.5% Ophth Soln [Timoptic 1 drop BOTH EYES DAILY 01/28/22 01/28/22 History 0.5% Ophth Soln] traMADol HCL 50 mg PO Q6H PRN 01/28/22 01/28/22 History Aspirin 325 mg PO BID #60 tab 02/02/22 Rx HYDROcodone/APAP 7.5-325MG [[place] 1 - 2 tab PO Q6H PRN #32 tab 02/02/22 Rx 7.5-325] Sennosides [Senokot] 2 tab PO DAILY PRN #60 tablet 02/02/22 Rx Allergies Allergy/AdvReac Type Severity Reaction Status Date / Time Penicillins Allergy Rash/Hives Verified 02/02/22 10:44 Physical Exam Osteopathic Statement: *. No significant issues noted on an osteopathic structural exam other than those noted in the History and Physical/Consult. Vitals: Vital Signs Temp Pulse Pulse Resp BP Pulse Ox 02/02/22 15:30 69 16 145/77 95 02/02/22 15:00 69 16 134/70 95 02/02/22 14:25 61 16 126/68 95 02/02/22 14:05 56 L 16 126/66 95 02/02/22 13:47 60 16 113/61 95 02/02/22 13:34 66 16 89/59 99 02/02/22 13:20 97.1 F L 66 16 90/51 99 02/02/22 11:15 97.6 F 85 16 177/85 98 Intake and Output 02/02/22 02/02/22 02/02/22 06:59 14:59 22:59 Intake Total 1051 Output Total 300 Balance 751 Intake: IV 1051 Output: Estimated Blood Loss 300 Other: Weight 78.1 kg Assessment and Plan Assessment: Attending note Lio Blackmon NP rendered care for this patient independently, reviewed the findings and plan as documented in the note above. I did not physically speak with our examined the patient on this date.
[2022-02-02] MEDS: ASPIRIN 325 MG TAB PO SCH (20:46)
[2022-02-02] MEDS ORDERED: SENNOSIDES-DOCUSATE SODIUM 1 EACH TAB PO SCH (21:00)
[2022-02-02 22:54] VITALS: TEMP 97.7
[2022-02-03 07:29] VITALS: BP 120/69; PULSE 81; RESP 16
--- NOTE | 2022-02-03 07:32 | P.DS ---
Providers Expected date of discharge: 02/03/22 Attending physician: Isac Medina Consults: 02/02/22 13:40 Consult Physician Routine Consulting Provider: Lo Marcial Consult Reason/Comments: medical management Do you want consulting provider notified?: Yes Primary care physician: Isac Nuñez - Discharge Diagnosis(es) (1) Primary localized osteoarthritis of right hip Current Visit: Yes Status: Acute (2) Status post total replacement of right hip Current Visit: Yes Status: Acute Hospital Course: This is a 86-year-old male with known history of degenerative arthritis of the right hip. The patient presents for evaluation. After discussion and consideration patient elects to proceed with total hip arthroplasty with direct anterior approach. The patient is seen preoperatively by primary care physician and cleared for surgery. Patient is admitted to [facility] on 02/02/2022 for total hip arthroplasty with direct anterior approach. The procedure is performed without complication or sequelae. The patient is doing well postoperatively. Labs and vital signs are stable on day of discharge. On day of discharge patient's hip incision is healing well. There is minimal erythema. There is no drainage noted at this time. There is minimal soft tissue swelling to the hip and thigh. Patient has full foot and ankle motion without difficulty or pain. Neurovascular status to the lower extremity is intact. Patient is discharged to home in good condition. Please see med rec for accurate list of home medications. Patient Condition at Discharge: Good Plan - Discharge Summary Discharge Rx Participant: No New Discharge Prescriptions: New HYDROcodone/APAP 7.5-325MG [[place] 7.5-325] 1 - 2 tab PO Q6H PRN #32 tab PRN Reason: Pain Sennosides [Senokot] 2 tab PO DAILY PRN #60 tablet PRN Reason: Constipation Aspirin 325 mg PO BID #60 tab No Action Losartan [Cozaar] 25 mg PO DAILY Atorvastatin [Lipitor] 40 mg PO DAILY HYDROcodone/APAP 7.5-325MG [[place] 7.5-325] 1 - 2 each PO Q6HR PRN #42 tab PRN Reason: Pain Aspirin 325 mg PO DAILY traMADol HCL 50 mg PO Q6H PRN PRN Reason: Pain Timolol 0.5% Ophth Soln [Timoptic 0.5% Ophth Soln] 1 drop BOTH EYES DAILY Discharge Medication List Atorvastatin [Lipitor] 40 mg PO DAILY 09/09/20 [History] Losartan [Cozaar] 25 mg PO DAILY 09/09/20 [History] HYDROcodone/APAP 7.5-325MG [[place] 7.5-325] 1 - 2 each PO Q6HR PRN #42 tab 11/27/21 [Rx] Aspirin 325 mg PO DAILY 01/28/22 [History] Timolol 0.5% Ophth Soln [Timoptic 0.5% Ophth Soln] 1 drop BOTH EYES DAILY 01/28/22 [History] traMADol HCL 50 mg PO Q6H PRN 01/28/22 [History] Aspirin 325 mg PO BID #60 tab 02/02/22 [Rx] HYDROcodone/APAP 7.5-325MG [[place] 7.5-325] 1 - 2 tab PO Q6H PRN #32 tab 02/02/22 [Rx] Sennosides [Senokot] 2 tab PO DAILY PRN #60 tablet 02/02/22 [Rx] Follow up Appointment(s)/Referral(s): Isac Medina DO [Doctor of Osteopathic Medicine] - 2 Weeks Activity/Diet/Wound Care/Special Instructions: Weightbearing as tolerated with walker. Leave dressing intact. Dressing may be removed by home care nurse or by patient in 7 days. Then change dressing twice daily until follow up. May shower with initial dressing intact and after removal. If dressing become saturated, please remove. Please take aspirin 325mg twice daily for 30 days to prevent blood clots. Recommend use of compression stockings daily until follow up to help prevent swelling and blood clots. May remove at night before sleeping. Please follow-up with [facility] in 2 weeks and call with any questions or concerns, . Discharge Disposition: HOME WITH HOME HEALTH SERVICES
[2022-02-03] MEDS: SODIUM CHLORIDE 0.9% 1,000 ML IV SCH (08:18)
[2022-02-03] MEDS: LACTATED RINGERS 1,000 ML IV SCH (08:18)
[2022-02-03] MEDS: ASPIRIN 325 MG TAB PO SCH (08:28)
[2022-02-03 08:39] LABS: HCT 35.9 % (39.6-50.0); HGB 11.4 g/dL (13.0-17.0); MCH 31.1 pg (27.0-32.0); MCHC 31.8 g/dL (32.0-37.0); MCV 97.8 fL (80.0-97.0); Mean Platelet Volume 10.8 fL (9.5-12.2); NRBC Per 100 WBC 0 /100 WBCS (0.0-0.0); Platelet Count 222 X 10*3/uL (140-440); RBC 3.67 X 10*6/uL (4.40-5.60); RDW 12.8 % (11.5-14.5)
[2022-02-03] MEDS ORDERED: ATORVASTATIN 40 MG TAB PO SCH (09:00)
[2022-02-03] MEDS ORDERED: LOSARTAN 25 MG TAB PO SCH (09:00)
[2022-02-03] MEDS ORDERED: TIMOLOL 0.5% OPHTH DROPS 5 ML BTL BOTH EYES SCH (09:00)
--- NOTE | 2022-02-03 09:06 | P.PN ---
Subjective Progress Note Date: 02/03/22 Hospital course: Patient is a very pleasant 86-year-old male with a past medical history of CAD status post CABG x4, hypertension, hyperlipidemia, glaucoma, and osteoarthritis. He is currently admitted under orthopedic surgical team for elective right total hip arthroplasty secondary to severe osteoarthritis of right hip. We have been consulted for medical management throughout patient's hospitalization. Physical exam: Patient was seen and fully evaluated at bedside this morning. He was sitting up in the chair and just finished working with physical therapy. Patient is claudette ssed and ready to go. Patient reports mild discomfort in right hip and right leg, but reports controlled with current pain medication regimen. He reports he is now urinating without any difficulties and RN denies any noted urinary retention. Patient denies having any other complaints or concerns at this time including headache, lightheadedness, dizziness, chest pain, palpitations, or experiencing any numbness/tingling/focal weakness. Hemoglobin stable at 11.4. Patient's vital signs are unremarkable. Medically, patient is stable for discharge home and has been cleared for discharge by primary admitting orthopedic surgery team. Vital signs reviewed and stable. General: Nontoxic, no distress and appears stated age. Derm: Skin warm and dry, normal coloration for ethnicity. Head: Atraumatic, normocephalic and symmetric. Eyes: EOMs intact, no lid lag, and anicteric sclera Mouth: no lip lesions, mucus membranes moist Cardiovascular: regular rate and rhythm with normal S1S2, no murmur, positive posterior tibial pulses bilaterally, and cap refill < 2 seconds. Lungs: Respirations even, regular, and unlabored on room air. Lungs CTA bilaterally, no rhonchi, no rales, no wheezing, and no accessory muscle usage. Abdominal: soft, nontender to palpation, no guarding, no appreciable organomegaly Ext: ROM intact. No gross muscle atrophy, no edema, no contractures Neuro: Speech clear, face symmetri jose and CN II-XII grossly intact with no noted focal neuro deficits Psych: Alert and oriented to person, place, time, and situation. Appropriate and pleasant affect. Assessment and Plan of Care: Status post right total hip arthroplasty Management per primary admitting orthopedic surgery team including DVT prophylaxis, pain management, weightbearing, and PT/OT. DVT prophylaxis currently with aspirin 325 mg twice daily Leukocytosis -Believed to be reactive no signs of infection. No need for further monitoring. Acute postoperative blood loss anemia, expected finding. -Hemoglobin stable at 11.4. No need for further monitoring at this time. Hypertension Hyperlipidemia History of CAD status post CABG x4 Monitor vital signs and continue daily home cardiac medication regimen with aspirin, atorvastatin, and losartan. Glaucoma Continue home timolol ophthalmologic drops. Thank you for allowing us to participate in the care of this pleasant patient. Do not hesitate to contact us with questions. Someone can be reached from the [facility] hospitalist group all hours of the day at [phone] or via [employer]. Objective - Vital Signs Vital signs: Vital Signs Temp 97.7 F 02/03/22 07:28 Pulse 81 02/03/22 07:28 Resp 16 02/03/22 07:28 BP 120/69 02/03/22 07:28 Pulse Ox 97 02/03/22 07:28 FiO2 Intake & Output 02/02/22 02/03/22 02/03/22 18:59 06:59 18:59 Intake Total 1901 Output Total 300 Balance 1601 Weight 78.1 kg Intake: IV 1901 Output: Estimated Blood Loss 300 Other: # Voids 1 # Bowel Movements 1 - Labs CBC & Chem 7: 02/03/22 04:34 Labs: Abnormal Lab Results - Last 24 Hours (Table) 02/03/22 Range/Units 04:34 WBC 10.90 H (4.50-10.00) X 10*3/uL RBC 3.67 L (4.40-5.60) X 10*6/uL Hgb 11.4 L (13.0-17.0) g/dL Hct 35.9 L (39.6-50.0) % MCV 97.8 H (80.0-97.0) fL MCHC 31.8 L (32.0-37.0) g/dL Assessment and Plan Assessment: Attending Note Lio Blackmon NP rendered care for this patient independently, reviewed the findings and plan as documented in the note above. I did not physically speak with our examined the patient on this date.
[2022-02-03 11:33] LABS: Basophils # (A) 0.04 X 10*3/uL (0.00-0.10); Basophils % (A) 0.4 %; Eosinophils # (A) 0.22 X 10*3/uL (0.04-0.35); Immature Grans, Automated 0.5 %; Lymphocytes # (A) 1.84 X 10*3/uL (0.90-5.00); Lymphocytes % (A) 16.9 %; Monocytes # (A) 1.94 X 10*3/uL (0.20-1.00); Monocytes % (A) 17.8 %; Neutrophils # (A) 6.81 X 10*3/uL (1.80-7.70); Neutrophils % (A) 62.4 %
[2022-02-03 11:34] LABS: RBC Morphology NORMAL
== END 2022-02-03 12:06 | disposition home health service (06) ==
LOC: OR 10:30 → 4SSUR 13:20 → OR 02-03 12:06
PROVIDERS: ATTEND Orthopaedic Surgery
DX: M16.11 Unilateral primary osteoarthritis, right hip (principal); I11.9 Hypertensive heart disease without heart failure; E78.5 Hyperlipidemia, unspecified; F10.90 Alcohol use, unspecified, uncomplicated; Z97.3 Presence of spectacles and contact lenses; Z95.1 Presence of aortocoronary bypass graft; Z98.890 Other specified postprocedural states; Z88.5 Allergy status to narcotic agent; Z88.8 Allergy status to other drugs, medicaments and biological substances; Z79.899 Other long term (current) drug therapy; Z79.82 Long term (current) use of aspirin
CPT/HCPCS: 27130; 97161; 97166; 86900; 86901; 85025; 86850; 73501; C1776; J1100; J0690 ×3; J2405; J2795; J1170

== ENCOUNTER → 2022-07-02 | Outpatient (CLI) | payer MEDICARE ==
--- NOTE | 2022-07-02 15:03 | US ---
EXAMINATION TYPE: US venous doppler duplex LE DATE OF EXAM: 07/02/2022 2:14 PM COMPARISON: NONE CLINICAL INDICATION: Male, 87 years old with history of I70.213 ATHSCL [place] ARTERIES OF EXTRM W INT RMT C; heaviness bilateral legs. imbalance SIDE PERFORMED: Bilateral TECHNIQUE: The lower extremity deep venous system is examined utilizing real time linear array sonog angella with graded compression, doppler sonography and color-flow sonography. VESSELS IMAGED: Common Femoral Vein Deep Femoral Vein Greater Saphenous Vein * Femoral Vein Popliteal Vein Small Saphenous Vein * Proximal Calf Veins (* superficial vessels) Grayscale, color doppler, spectral doppler imaging performed of the deep veins of the lower extremiti es. There is normal flow, compressibility, vascular waveforms. Right Leg: no evidence of DVT Left Leg: no evidence of DVT IMPRESSION: No ultrasound evidence for deep venous thrombosis of the bilateral lower extremities.
--- NOTE | 2022-07-06 23:13 | US ---
EXAMINATION TYPE: US arterial LE single level DATE OF EXAM: 07/02/2022 2:49 PM CLINICAL INDICATION: Male, 87 years old with history of I70.213 ATHSCL [place] ARTERIES OF EXTRM W INT RMT C; unsteady imbalance. Heaviness bilateral legs for 2 months. CABG 4 vessel. History of: Hypertension: Yes Previous Vascular Surgery: No Doppler Waveforms: Right: Biphasic to monophasic Left: Biphasic to monophasic Right Brachial Pressure: 140 Left Brachial Pressure: 1:30 Ankle-Brachial Indices: Right: Noncompressible Left: 1.29 Toe Brachial Indices: Right: 0.47 Left: 0.54 IMPRESSION: Diminished bilateral TBI values consistent with at least mild peripheral arterial diseas e in the bilateral feet. Follow-up advised.
== END | disposition home or self-care (01) ==
LOC: RADUSWWP 13:23
PROVIDERS: ATTEND Family Medicine
DX: I70.213 Atherosclerosis of native arteries of extremities with intermittent claudication, bilateral legs (principal); R26.89 Other abnormalities of gait and mobility; R42 Dizziness and giddiness; I10 Essential (primary) hypertension; Z95.1 Presence of aortocoronary bypass graft
CPT/HCPCS: 93922; 93970

== ENCOUNTER → 2023-02-05 | Outpatient (CLI) | payer MEDICARE ==
--- NOTE | 2023-02-05 11:35 | MR ---
EXAMINATION TYPE: MR lumbar spine wo con DATE OF EXAM: 02/05/2023 11:18 AM CLINICAL INDICATION:Male, 87 years old with history of M54.51 VERTEBROGENIC LOW BACK PAIN; Lower back and bilateral leg pain. COMPARISON: None TECHNIQUE: Multi planar, multi sequence imaging was performed utilizing: T1-weighted, T2-weighted, a nd turbo inversion recovery imaging of the lumbar spine. IV Contrast: (None if empty) FINDINGS: Alignment: The lumbar vertebral bodies have preserved heights and alignment. Cord: The conus medullaris and the distal spinal cord appear unremarkable with regards to their signa l intensity and morphology. Bones/Discs: Multilevel disc degeneration changes with osteophyte formation, disc space narrowing, Sc hmorl's nodes, and facet joint arthropathy. Reactive inversion recovery signal along the adjoining en dplates of L4 and L5 on the left. Multilevel disc desiccation and disc space narrowing are present. T12-L1: Disc bulge and facet joint arthropathy result in mild spinal canal and moderate bilateral dariel ral foraminal stenosis. L1-L2: No evidence of significant spinal canal stenosis or neural foraminal stenosis. L2-L3: Disc bulge and facet joint arthropathy result in mild spinal canal and moderate bilateral neur al foraminal stenosis. L3-L4: Disc bulge and facet joint arthropathy result in mild spinal canal and moderate bilateral neur al foraminal stenosis. L4-L5: Disc bulge and facet joint arthropathy result in mild spinal canal and moderate to severe righ t and moderate left neural foraminal stenosis. L5-S1: Disc bulge and facet joint arthropathy result in mild spinal canal and moderate bilateral neur al foraminal stenosis. No significant spinal canal or neural foraminal stenosis in the remainder of the visualized levels. Other findings: None. IMPRESSION: 1. No definitive evidence of disc herniation or significant spinal canal stenosis. 2. Moderate to severe disc degeneration with associated osteoarthritic changes with varying degrees of neural foraminal stenosis throughout the spine.
== END | disposition home or self-care (01) ==
LOC: RADMRIMAIN 10:25
PROVIDERS: ATTEND Physical Medicine & Rehabilitation
DX: M47.26 Other spondylosis with radiculopathy, lumbar region (principal); M51.16 Intervertebral disc disorders with radiculopathy, lumbar region; M48.062 Spinal stenosis, lumbar region with neurogenic claudication; M99.73 Connective tissue and disc stenosis of intervertebral foramina of lumbar region
CPT/HCPCS: 72148

== ENCOUNTER → 2023-07-05 | Outpatient (CLI) | payer MEDICARE ==
[2023-07-05 14:34] LABS: African American GFR (CKD) 90 (>60 ml/min/1.73 sqM); Blood Urea Nitrogen 20 mg/dL (9-20); Non-African American GFR(CKD) 78 (>60 ml/min/1.73 sqM)
--- NOTE | 2023-07-05 15:49 | CT ---
EXAMINATION TYPE: CT iac wo/w con DATE OF EXAM: 07/05/2023 COMPARISON: None HISTORY: dizziness, light headed, sense of falling, hearing loss, double vision, weakness in legs CT DLP: 300.00 mGycm Automated exposure control for dose reduction was used. CONTRAST: CT scan of the IACs is performed with IV Contrast, patient injected with 100 mL of Isovue 300. FINDINGS: The external auditory canals are patent bilaterally. Mastoid air cells show no evidence of abnormal opacification bilaterally. The middle ear ossicles are symmetric and unremarkable. There is no evidence of suspicious surrounding soft tissue density to suggest cholesteatoma. The scutum is preserved bilaterally. The cochlea and the semicircular canals are symmetric and unremarkable. Ves tibular aqueduct and internal carotid canal appear unremarkable. Temporomandibular joints are mainta ined bilaterally. IMPRESSION: No significant abnormality seen to account for patient's symptoms.
== END | disposition home or self-care (01) ==
LOC: RADCTMAIN 13:41
PROVIDERS: ATTEND Family Medicine
DX: R42 Dizziness and giddiness (principal); R26.89 Other abnormalities of gait and mobility
CPT/HCPCS: 82565; 84520; 70482; 36415; Q9967